=== PATIENT | female | born 1940 | race Caucasian/White ===

== ENCOUNTER 2020-09-16 10:02 | Inpatient (IN) ==
[2020-09-16 11:30] LABS: Basophils # (auto) 0.01 K/uL (0-0.2); Basophils % (auto) 0.1 %; Eosinophils # (auto) 0.22 K/uL (0-0.5); Eosinophils % (auto) 1.5 %; Hematocrit (blood only) 42.8 % (37-47); Hemoglobin 14.4 g/dL (12.0-16.0); Immature Granulocytes # (auto) 0.04 K/uL (0.00-0.02); Immature Granulocytes % (auto) 0.3 %; Lymphocytes # (auto) 1.61 K/uL (1.2-3.4); Lymphocytes % (auto) 10.9 %; Mean Corpuscular Hemoglobin 30.8 pg (25-34); Mean Corpuscular Hgb Conc 33.6 g/dL (32-36); Mean Corpuscular Volume 91.6 fL (80-100); Mean Platelet Volume 11.7 fL (7.4-10.4); Monocytes # (auto) 0.74 K/uL (0.11-0.59); Neutrophils # (auto) 12.11 K/uL (1.4-6.5); Neutrophils % (auto) 82.2 %; Platelet Count 261 K/uL (130-400); RDW Standard Deviation 46.9 fL (36.4-46.3); Red Blood Count 4.67 M/uL (4.2-5.4); White Blood Count 14.73 K/uL (4.8-10.8)
[2020-09-16 11:37] LABS: Appearance Urine Clear (Clear); Bilirubin Urine Negative (Negative); Blood Urine 1+ (Negative); Color Urine Yellow; Glucose Urine UA 2+ (Negative); Ketones Urine Negative (Negative); Leukocyte Esterase Urine Trace (Negative); Nitrite Urine Positive (Negative); Protein Urine Trace (Negative); Urobilinogen Urine Negative (Negative); pH Urine 5.5 (4.5-7.5)
[2020-09-16 11:48] LABS: Bacteria Urine 2+ (Negative); RBC Urine 0-4 /hpf (0-4)
[2020-09-16 12:29] LABS: Alanine Aminotransferase 113 U/L (12-78); Albumin Globulin Ratio 0.8 (0.9-2); Albumin Level 3.2 gm/dl (3.4-5.0); Alkaline Phosphatase 192 U/L (45-117); Aspartate Aminotransferase 13 U/L (15-37); BUN Creatinine Ratio 22.1 (10-20); Bilirubin,Total 1.2 mg/dl (0.2-1); Blood Urea Nitrogen 54 mg/dl (7-18); Carbon Dioxide 26 mmol/L (21-32); Chloride 94 mmol/L (98-107); Est GFR (African American) 20.8; Est GFR (Non-African American) 17.9; Globulin 3.8 gm/dl (2.5-4.0); Magnesium 2.3 mg/dl (1.8-2.4); Potassium 4.5 mmol/L (3.5-5.1); Sodium 128 mmol/L (136-145); Troponin I < 0.015 ng/ml (0-0.045)
[2020-09-16 12:31] LABS: Glucose 772 mg/dl (70-99)
[2020-09-16 12:45] LABS: Beta-Hydroxybutyrate 3.41 mg/dl (0.2-2.81)
[2020-09-16] MEDS ORDERED: SODIUM CHLORIDE 0.9% 1000ML 500 ML IV ONE (12:45)
[2020-09-16] MEDS ORDERED: SODIUM CHLORIDE 0.9% 1000ML 1,000 ML IV STA (12:45)
[2020-09-16] MEDS ORDERED: cefTRIAXone SODIUM 2,000 MG/70 ML BAG IV STA (12:45)
[2020-09-16] MEDS ORDERED: NovoLIN-R INSULIN PER UNIT CHARGE IV STA (12:45)
[2020-09-16] MEDS ORDERED: HHS GOAL RANGE 250-350 mg/dl ONE (13:56)
[2020-09-16] MEDS ORDERED: PHARMACY GLYCEMIC MGMT CONSULT STA (13:56)
[2020-09-16] MEDS ORDERED: INSULIN REGULAR 250 UNITS in SODIUM CHLORIDE 0.9% 247.5 ML IV SCH (14:00)
--- NOTE | 2020-09-16 14:05 | History & Physical Report ---
Date of Service September 16, 2020 Assessment & Plan (1) Hyperosmolar hyperglycemic state (HHS): Patient presents with glucose of 772. She has acute kidney injury and perhaps urinary tract infection present on admission. Patient was volume resuscitated in ER with crystalloid solution still received possibly 1500 mL he continues on Normosol and insulin drip was begun she did receive 10 units of regular insulin intravenously in the emergency department. She does have mild elevation of her beta hydroxybutyric acid but possibly could make this be considered more DKA however this is very mild. She also does not have an anion gap acidosis present on her electrolytes. Other than thirst and frequent urination the patient has no other complaints or problems at this time and she only came in at the recommendation of her primary care provider which is [place]. 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 The chlorthalidone and losartan will be held if additional blood pressure control is needed will use hydralazine (5) Hypothyroidism: Patient is maintained on Synthroid 137 grams daily, TSH was checked on intake and was normal (6) GERD (gastroesophageal reflux disease): Patient is maintained on omeprazole 20 (7) COPD (chronic obstructive pulmonary disease): Patient is stable taking Advair is to be continued she has no history of smoke exposure but was diagnosed by her PCP (8) Osteoarthritis: This once daily tramadol for osteoarthritic knee pain (9) DVT prophylaxis: Heparin 5000 subcu every 12 use History of Present Illness Primary Care Provider: NO PCP Reportedly the patient was sent to our emergency department due to outpatient laboratory showing abnormal kidney function. Patient is a known diabetic and also takes both diuretics and ARB medications. In the emergency department she was found to have a BUN/creatinine of 54 and 2.4 respectively with a glucose of 772. She likewise has a leukocytosis and a nitrate positive leukocyte esterase trace positive urine analysis with concern for urinary tract infection present on admission and likely HHS/DKA as she does have trace elevation of beta hydroxybutyric acid. Symptoms the patient is known as an outpatient have been fatigue and decreased appetite over the last 2 weeks. Of note the patient has received 2 code vaccines Allergies Allergy/AdvReac Type Severity Reaction Status Date / Time ibuprofen AdvReac Unknown Unverified 09/16/20 10:46 Home Medications Medication Instructions Recorded Confirmed Type amlodipine 10 mg PO DAILY 09/16/20 09/16/20 History aspirin 81 mg PO DAILY 09/16/20 09/16/20 History atenolol 100 mg PO DAILY 09/16/20 09/16/20 History atorvastatin 40 mg PO PM 09/16/20 09/16/20 History chlorthalidone 25 mg PO DAILY 09/16/20 09/16/20 History fluticasone propion-salmeterol 1 inh INHALATION BID 09/16/20 09/16/20 History glimepiride 1 mg PO DAILY 09/16/20 09/16/20 History levothyroxine 137 mcg PO DAILY 09/16/20 09/16/20 History losartan 100 mg PO DAILY 09/16/20 09/16/20 History omeprazole 20 mg PO DAILY 09/16/20 09/16/20 History tramadol 50 mg PO BID 09/16/20 09/16/20 History Past Med/Surg History Medical History (Updated 09/16/20 @ 14:21 by Nikhil Mckeon MD) Hypothyroidism Family History (Updated 09/16/20 @ 14:20 by Nikhil Mckeon MD) Brother Cancer Other Diabetes Social History Smoking Status: Never smoker Feels Safe at Home: Yes Review of Systems Review of Systems: Mild distress and fatigue has lost appetite for last 2 weeks. no headache, blurry or double vision no speech or swallowing issues no chest pain, pressure or palpitations no shortness of breath, cough or wheezes no abdominal pain, nausea or vomiting, diarrhea or constipation no dysuria, hematuria has been having urinary frequency Daily bilateral knee pain chronic lower extremity swelling no back pain, CVA tenderness or radicular pain no bruising, bleeding or rashes no focal signs of weakness or numbness or altered sensation no complaints of anxiety or depression.. Physical Exam Physical Exam: The patient appeared well nourished and normally developed. Vital signs as documented. Head exam is normocephalic atraumatic no scleral icterus Neck is without JVD, thyromegaly, or carotid bruits. Lungs are clear to auscultation, no focal loss of breath sounds Cardiac exam, Rhythm is regular.. No murmurs, rubs or gallops. Abdominal exam reveals normal bowel sounds, soft non tender, no masses Extremities are 1+ edema bilaterally which she says is chronic for her Neurologic exam is alert and oriented, no focal loss of strength or sensation Skin is without bruises or rashes soft fleshy growth on her right cheek she says is chronic Psychologically is without concerns for anxiety or depression Results & Data Results & Data ([facility]) Vital Signs (Past 12 Hours) Vital Signs Temp Pulse Pulse Resp BP BP Pulse Ox 09/16/20 13:00 64 19 148/60 H 97 09/16/20 12:37 65 22 144/62 H 97 09/16/20 12:30 72 21 144/62 H 97 09/16/20 12:07 67 17 97 09/16/20 10:58 63 16 119/63 96 09/16/20 10:13 97.9 F 67 16 137/58 L 97 PG Care Time/CCT Total # of Minutes Spent Total Time Spent with Patient: Total time spent is greater than 50% in coordination of care (as documented) at patient's floor/unit and/or counseling patient: Coding Level of Care Code 35608 Initial Inpt Care Lvl 3 Diagnoses Hyperosmolar hyperglycemic state (HHS) E11.00; E11.65 Diabetes E11.9 Chronic kidney disease stage: unspecified stage Diabetes mellitus complication status: with kidney complications Diabetes mellitus intermediate insulin use: without indirect sales exec use Diabetes mellitus type: type 2 UTI (urinary tract infection) N30.00 Hematuria presence: without hematuria Urinary tract infection type: acute cystitis Hypertension I10 Hypertension type: unspecified Hypothyroidism E03.9 GERD (gastroesophageal reflux disease) K21.9 COPD (chronic obstructive pulmonary disease) J44.9 Osteoarthritis M19.90 DVT prophylaxis Z29.9 (1) UTI (urinary tract infection) Hematuria presence: without hematuria Urinary tract infection type: acute cystitis Qualified Code(s): N30.00 - Acute cystitis without hematuria (2) Diabetes Chronic kidney disease stage: unspecified stage Diabetes mellitus com plication status: with kidney complications Diabetes mellitus indirect sales exec insulin use: without intermediate use Diabetes mellitus type: type 2 (3) Hypertension Hypertension type: unspecified Qualified Code(s): I10 - Essential (primary) hypertension
[2020-09-16] MEDS ORDERED: PHARMACY GLYCEMIC MGMT CONSULT PRN (14:06)
--- NOTE | 2020-09-16 14:11 | CT Scan Report ---
ABDOMEN AND PELVIS CT WITHOUT CONTRAST CT DOSE: 1172.33 mGy.cm HISTORY: Acute urinary tract infection with acute kidney injury elevated lfts, UTI, ZUHAIR TECHNIQUE: Multiaxial CT images of the abdomen and pelvis were performed without contrast. A dose lo wering technique was utilized adhering to the principles of ALARA. COMPARISON STUDY: None. FINDINGS: 4 mm solid nodule of the basal right lower lobe, image 21. No pneumatosis or pneumoperitone um. Coronary artery calcifications. The unenhanced spleen, pancreas, adrenal glands and unenhanced li bianca appear unremarkable. Layering stones within the gallbladder lumen. Hyperdense foci within the com mon bile duct measuring up to 6 mm suggestive of choledocholithiasis, image 134. The common bile duct measures up to 10 mm transversely. Cortical thinning of the bilateral kidneys. There are a few hyperdense lesions of the bilateral kidne ys measuring up to 7 mm on the left suggestive of proteinaceous or hemorrhagic cysts. There are a few simple cysts of the bilateral kidneys measuring up to 3.7 cm on the right. No renal or ureteral calc dav or hydronephrosis. Partially decompressed urinary bladder with mild wall thickening. Unremarkable uterus. Bilateral tubo-ovarian occlusion devices. No adnexal mass lesion. Calcified plaque of the do minant aorta without aneurysm. No adenopathy. I'll distal esophageal wall thickening with small hiatal hernia. No bowel obstruction. Colonic divert iculosis. There is mild focal wall thickening involving the hepatic flexure with trace pericolonic st randing as noted on image 162 series 3. The remainder of the colon appears normal. Normal appendix. N o ascites. Partially imaged 1.6 cm nodule of the lateral right breast on image 1. Degenerative change s of the spine, pelvis and hips. No acute fracture or suspicious bone lesion. IMPRESSION: 1. Cholelithiasis with hyperdense foci within the common bile duct suggestive of choledocholithiasis resulting in mild extrahepatic biliary ductal dilation. 2. Focal wall thickening with minimal pericolonic stranding involves the hepatic flexure. This may be secondary to a mild acute diverticulitis, however should be correlated with colonoscopy to exclude a n underlying lesion. 3. No bowel obstruction or pneumoperitoneum. 4. 1.6 cm partially imaged nodule of the lateral right breast is suspicious for a mass. Nonemergent m ammographic workup is needed. 5. No urolith or obstructive uropathy. 6. Additional findings as above. ACT 112: Negative or not required by law. The above report was generated using voice recognition software. It may contain grammatical, syntax o r spelling errors. Electronically signed by: Marcos Menjivar M.D. 09/16/2020 2:09 PM
[2020-09-16] MEDS ORDERED: PATIENT'S HEIGHT AND/OR WEIGHT NEEDED SCH (14:15)
[2020-09-16 14:16] LABS: Influenza A virus by PCR Negative (Neg); Influenza B virus by PCR Negative (Neg); RSV by PCR Negative (Neg); SARS CoV2 RNA(COVID-19) InHosp NEGATIVE (Negative)
--- NOTE | 2020-09-16 14:38 | Electrocardiogram Report ---
Test Reason : Blood Pressure : / mmHG Vent. Rate : 067 BPM Atrial Rate : 067 BPM P-R Int : 174 ms QRS Dur : 088 ms QT Int : 434 ms P-R-T Axes : 073 025 047 degrees QTc Int : 458 ms Normal sinus rhythm Normal ECG No previous ECGs available Confirmed by Manuel Díaz ([id number]) on 09/16/2020 2:38:17 PM Referred By: REFERRED SELF Confirmed By:Reuben Díaz
[2020-09-16] MEDS: NORMOSOL-R 1,000 ML IV SCH (15:20)
--- NOTE | 2020-09-16 16:16 | Emergency Department Note ---
Impression & Plan Acute renal failure, Hyperglycemia, Acute UTI (urinary tract infection), Elevated LFTs, Choledocholithiasis ED Provider Note INFORMANT: Patient ED PROVIDER(S): Rafat Reece MD CHIEF COMPLAINT: Abnormal labs PLAN: Disposition: Admitted Condition: Good Outpatient prescription management: none Referral: None none MEDICAL DECISION MAKING: Patient presented to the emergency department complaining of an abnormal lab test stating that her renal function was off. On review of systems she had no complaints. On second review of system she then admitted to some urinary frequency. Her laboratory testing revealed elevated LFTs, significant hyperglycemia, white blood cell count elevation, and signs of UTI. On reassessment she was doing well and again had no other complaints. Protocol Covid testing was performed. The patient was given IV fluids, IV insulin, and IV Rocephin. [facility] Dr. Mckeon. CT imaging was ordered to evaluate for the acute renal failure. Patient was evaluated in ER and admitted. CT imaging did reveal findings concerning for biliary pathology. Triage Nursing notes reviewed and agree them. Prior medical records reviewed. Outpatient lab revealed leukocytosis. Vital Signs: reviewed and remarkable for no significant abnormalities Differential diagnosis: Infection, dehydration, metabolic abnormality, hypo/hyperglycemia, electrolyte disturbance, anemia, hypoxia, cardiac sources, intracerebral event, toxicologic, neurologic, as well as other pathologies. Diagnostics interpreted by me: ECG: Rate: 67 Rhythm:Normal sinus [place]:Normal QRS:Normal ST segements:No elevation or depression Other:No PACs or PVCs Cardiac Monitoring: Cardiac monitoring ordered by me: The patient was placed on continuous cardiac monitoring and observed. It revealed a normal sinus rhythm at 61 beats per minute without ectopy or evidence of dysrhythmia. Imaging studies: CT imaging of the abdomen pelvis: 1. Cholelithiasis with hyperdense foci within the common bile duct suggestive of choledocholithiasis resulting in mild extrahepatic biliary ductal dilation. 2. Focal wall thickening with minimal pericolonic stranding involves the hepatic flexure. This may be secondary to a mild acute diverticulitis, however should be correlated with colonoscopy to exclude an underlying lesion. 3. No bowel obstruction or pneumoperitoneum. 4. 1.6 cm partially imaged nodule of the lateral right breast is suspicious for a mass. Nonemergent mammographic workup is needed. 5. No urolith or obstructive uropathy. 6. Additional findings as above. Consultation(s): [facility] service HPI: The patient is a 80year old female who presents to the Emergency Room with complaints of abnormal labs. This started today and is from her primary care physician. The patient also notes the following associated symptoms, urinary frequency. The patient has taken no medication for relieving factors. Current pain is rated as 0/10. No Covid exposure or sick contacts. Pt denies LOC, h eadache, fevers, chills, diaphoresis, visual changes, neck pain, chest pain, breathing difficulties, nausea, vomiting, abdominal pain, back pain, melena, hematochezia, numbness, weakness, lymphadenopathy, rash, or other complaints. ROS: See above HPI for pertinent positives & negatives. A total of 10 systems reviewed and were otherwise negative. PAST MEDICAL HISTORY:See Below , diabetes PAST SURGICAL HISTORY:See Below, FAMILY HISTORY:See Below SOCIAL HISTORY:See Below, retired HOME MEDICATIONS:See Below ALLERGIES:See Below VITALS:See Below PHYSICAL EXAMINATION: GENERAL: Awake, alert, well-appearing, in no distress HENT: Normocephalic, atraumatic. Oropharynx unremarkable. EYES: Normal conjunctiva. Sclera non-icteric. NECK: Inspection normal. Non-tender. Supple. No nuchal rigidity. FROM. No masses. RESPIRATORY: Clear to auscultation. No wheezes. No rales. Normal respiratory effort. CARDIAC: Normal rate. Normal rhythm. No murmurs. No rubs. Extremities warm and well perfused. Pulses equal. No JVD. GI: Soft, non-distended. No tenderness to palpation. No rebound or guarding. No masses. RECTAL: Deferred. MUSCULOSKELETAL: Atraumatic. Chest examination reveals no tenderness. The back is symmetrical on inspection without obvious abnormality. There is no CVA tenderness to palpation. No joint edema. LOWER EXTREMITIES: Calves are equal size bilaterally and non-tender. 1+ edema. No discoloration. NEURO: Normal sensorium. No sensory or motor deficits noted. SKIN: No rash or jaundice noted.josé miguel Reece MD Past Med/Surg History Medical History (Updated 09/16/20 @ 16:19 by Rafat Reece MD) Hypothyroidism Family History (Updated 09/16/20 @ 14:20 by Nikhil Mckeon MD) Brother Cancer Other Diabetes Social History Smoking Status: Never smoker Feels Safe at Home: Yes Allergies Allergies Allergy/AdvReac Type Severity Reaction Status Date / Time ibuprofen AdvReac Unknown Unverified 09/16/20 10:46 Home Meds Home Medications Medication Instructions Recorded Confirmed amlodipine 10 mg PO DAILY 09/16/20 09/16/20 aspirin 81 mg PO DAILY 09/16/20 09/16/20 atenolol 100 mg PO DAILY 09/16/20 09/16/20 atorvastatin 40 mg PO PM 09/16/20 09/16/20 chlorthalidone 25 mg PO DAILY 09/16/20 09/16/20 fluticasone propion-salmeterol 1 inh INHALATION BID 09/16/20 09/16/20 glimepiride 1 mg PO DAILY 09/16/20 09/16/20 levothyroxine 137 mcg PO DAILY 09/16/20 09/16/20 losartan 100 mg PO DAILY 09/16/20 09/16/20 omeprazole 20 mg PO DAILY 09/16/20 09/16/20 tramadol 50 mg PO BID 09/16/20 09/16/20 Results & Data (ED) Vital Signs Vital Signs - 24 hr 09/16/20 10:13 09/16/20 10:58 09/16/20 12:07 Temperature 36.6 C Temperature Source Oral Pulse Rate 67 67 Pulse Rate [Bilateral Radial] 63 Pulse Rate from SpO2 Sensor 67 Pulse Rhythm Regular Pulse Rhythm [Bilateral Radial] Regular Pulse Strength [Bilateral Radial] Normal Respiratory Rate 16 16 17 Respiratory Effort / Characteristics Non-Labored Respiratory Depth Normal Respiratory Pattern Regular Blood Pressure 137/58 L Blood Pressure [Right Arm] 119/63 Blood Pressure Mean 84 Blood Pressure Mean [Right Arm] 81 Blood Pressure Position [Right Arm] Sitting Pulse Oximetry 97 96 97 Oxygen Delivery Method Room Air Room Air Sepsis Recent Fever Within 48 Hours No Sepsis New/Unexplained Change in Mental Status N/A Sepsis Action Taken by Nursing No Action Required 09/16/20 12:30 09/16/20 12:37 09/16/20 13:00 Temperature Temperature Source Pulse Rate 72 65 64 Pulse Rate [Bilateral Radial] Pulse Rate from SpO2 Sensor 63 65 64 Pulse Rhythm Pulse Rhythm [Bilateral Radial] Pulse Strength [Bilateral Radial] Respiratory Rate 21 22 19 Respiratory Effort / Characteristics Respiratory Depth Respiratory Pattern Blood Pressure 144/62 H 144/62 H 148/60 H Blood Pressure [Right Arm] Blood Pressure Mean 89 89 89 Blood Pressure Mean [Right Arm] Blood Pressure Position [Right Arm] Pulse Oximetry 97 97 97 Oxygen Delivery Method Sepsis Recent Fever Within 48 Hours Sepsis New/Unexplained Change in Mental Status Sepsis Action Taken by Nursing 09/16/20 13:59 09/16/20 14:00 09/16/20 14:52 Temperature Temperature Source Pulse Rate 70 70 67 Pulse Rate [Bilateral Radial] Pulse Rate from SpO2 Sensor 70 70 67 Pulse Rhythm Pulse Rhythm [Bilateral Radial] Pulse Strength [Bilateral Radial] Respiratory Rate 24 Respiratory Effort / Characteristics Respiratory Depth Respiratory Pattern Blood Pressure 137/60 Blood Pressure [Right Arm] Blood Pressure Mean 85 Blood Pressure Mean [Right Arm] Blood Pressure Position [Right Arm] Pulse Oximetry 98 98 97 Oxygen Delivery Method Sepsis Recent Fever Within 48 Hours Sepsis New/Unexplained Change in Mental Status Sepsis Action Taken by Nursing 09/16/20 15:00 Temperature Temperature Source Pulse Rate 61 Pulse Rate [Bilateral Radial] Pulse Rate from SpO2 Sensor 61 Pulse Rhythm Pulse Rhythm [Bilateral Radial] Pulse Strength [Bilateral Radial] Respiratory Rate 19 Respiratory Effort / Characteristics Respiratory Depth Respiratory Pattern Blood Pressure 128/71 Blood Pressure [Right Arm] Blood Pressure Mean 90 Blood Pressure Mean [Right Arm] Blood Pressure Position [Right Arm] Pulse Oximetry 97 Oxygen Delivery Method Sepsis Recent Fever Within 48 Hours Sepsis New/Unexplained Change in Mental Status Sepsis Action Taken by Nursing Laboratory Data Result diagrams: 09/16/20 11:14 09/16/20 11:17 Lab Results 09/16/20 09/16/20 09/16/20 Range/Units 11:14 11:17 11:17 WBC 14.73 H (4.8-10.8) K/uL RBC 4.67 (4.2-5.4) M/uL Hgb 14.4 (12.0-16.0) g/dL Hct 42.8 (37-47) % MCV 91.6 (80-100) fL MCH 30.8 (25-34) pg MCHC 33.6 (32-36) g/dL RDW Std Deviation 46.9 H (36.4-46.3) fL RDW Coeff of Roberto 14.0 (11.5-14.5) % Plt Count 261 (130-400) K/uL MPV 11.7 H (7.4-10.4) fL Immature Gran % (Auto) 0.3 % Neut % (Auto) 82.2 % Lymph % (Auto) 10.9 % [place] % (Auto) 5.0 % Eos % (Auto) 1.5 % Baso % (Auto) 0.1 % Neut # (Auto) 12.11 H (1.4-6.5) K/uL Lymph # (Auto) 1.61 (1.2-3.4) K/uL [place] # (Auto) 0.74 H (0.11-0.59) K/uL Eos # (Auto) 0.22 (0-0.5) K/uL Baso # (Auto) 0.01 (0-0.2) K/uL Immature Gran # (Auto) 0.04 H (0.00-0.02) K/uL Sodium 128 L (136-145) mmol/L Potassium 4.5 (3.5-5.1) mmol/L Chloride 94 L (98-107) mmol/L Carbon Dioxide 26 (21-32) mmol/L Anion Gap 8.0 (3-11) BUN 54 H (7-18) mg/dl Creatinine 2.46 H (0.6-1.2) mg/dl Est Cr Clr Drug Dosing Not Reportable Est GFR ( Amer) 20.8 Est GFR (Non-Af Amer) 17.9 BUN/Creatinine Ratio 22.1 H (10-20) Glucose 772 H* (70-99) mg/dl POC Glucose (70-99) mg/dl Calcium 9.0 (8.5-10.1) mg/dl Magnesium 2.3 (1.8-2.4) mg/dl Total Bilirubin 1.2 H (0.2-1) mg/dl AST 13 L (15-37) U/L ALT 113 H (12-78) U/L Alkaline Phosphatase 192 H (45-117) U/L Troponin I < 0.015 (0-0.045) ng/ml Total Protein 7.0 (6.4-8.2) gm/dl Albumin 3.2 L (3.4-5.0) gm/dl Globulin 3.8 (2.5-4.0) gm/dl Albumin/Globulin Ratio 0.8 L (0.9-2) Beta-Hydroxybutyric Acd 3.41 H (0.2-2.81) mg/dl TSH 3.190 (0.300-4.500) uIu/ml Urine Color Yellow Urine Appearance Clear (Clear) Urine pH 5.5 (4.5-7.5) Ur Specific [place] 1.010 (1.000-1.030) Urine Protein Trace H (Negative) Urine Glucose (UA) 2+ H (Negative) Urine Ketones Negative (Negative) Urine Blood 1+ H (Negative) Urine Nitrite Positive A (Negative) Urine Bilirubin Negative (Negative) Urine Urobilinogen Negative (Negative) Ur Leukocyte Esterase Trace H (Negative) Urine RBC 0-4 (0-4) /hpf Urine WBC 10-30 H (0-5) /hpf Ur Epithelial Cells 5-10 H (0-5) /lpf Urine Bacteria 2+ H (Negative) COVID-19 Eval Order SARS-CoV-2 (PCR) (Negative) Influenza Type A (PCR) (Neg) Influenza Type B (PCR) (Neg) RSV (RT-PCR) (Neg) 09/16/20 09/16/20 09/16/20 Range/Units 13:15 13:15 14:59 WBC (4.8-10.8) K/uL RBC (4.2-5.4) M/uL Hgb (12.0-16.0) g/dL Hct (37-47) % MCV (80-100) fL MCH (25-34) pg MCHC (32-36) g/dL RDW Std Deviation (36.4-46.3) fL RDW Coeff of Roberto (11.5-14.5) % Plt Count (130-400) K/uL MPV (7.4-10.4) fL Immature Gran % (Auto) % Neut % (Auto) % Lymph % (Auto) % [place] % (Auto) % Eos % (Auto) % Baso % (Auto) % Neut # (Auto) (1.4-6.5) K/uL Lymph # (Auto) (1.2-3.4) K/uL [place] # (Auto) (0.11-0.59) K/uL Eos # (Auto) (0-0.5) K/uL Baso # (Auto) (0-0.2) K/uL Immature Gran # (Auto) (0.00-0.02) K/uL Sodium (136-145) mmol/L Potassium (3.5-5.1) mmol/L Chloride (98-107) mmol/L Carbon Dioxide (21-32) mmol/L Anion Gap (3-11) BUN (7-18) mg/dl Creatinine (0.6-1.2) mg/dl Est Cr Clr Drug Dosing Est GFR ( Amer) Est GFR (Non-Af Amer) BUN/Creatinine Ratio (10-20) Glucose (70-99) mg/dl POC Glucose 495 H* (70-99) mg/dl Calcium (8.5-10.1) mg/dl Magnesium (1.8-2.4) mg/dl Total Bilirubin (0.2-1) mg/dl AST (15-37) U/L ALT (12-78) U/L Alkaline Phosphatase (45-117) U/L Troponin I (0-0.045) ng/ml Total Protein (6.4-8.2) gm/dl Albumin (3.4-5.0) gm/dl Globulin (2.5-4.0) gm/dl Albumin/Globulin Ratio (0.9-2) Beta-Hydroxybutyric Acd (0.2-2.81) mg/dl TSH (0.300-4.500) uIu/ml Urine Color Urine Appearance (Clear) Urine pH (4.5-7.5) Ur Specific [place] (1.000-1.030) Urine Protein (Negative) Urine Glucose (UA) (Negative) Urine Ketones (Negative) Urine Blood (Negative) Urine Nitrite (Negative) Urine Bilirubin (Negative) Urine Urobilinogen (Negative) Ur Leukocyte Esterase (Negative) Urine RBC (0-4) /hpf Urine WBC (0-5) /hpf Ur Epithelial Cells (0-5) /lpf Urine Bacteria (Negative) COVID-19 Eval Order CovFluRsv at [facility] SARS-CoV-2 (PCR) NEGATIVE (Negative) Influenza Type A (PCR) Negative (Neg) Influenza Type B (PCR) Negative (Neg) RSV (RT-PCR) Negative (Neg) Administered Medications Insulin Human Regular 250 (units/ Sodium Chloride) 250 mls @ 9.9 mls/hr IV .Q24H FRANTZ; Protocol Stop: 10/16/20 13:59 Last Admin: 09/16/20 15:22 Dose: 9.9 units/hr, 9.9 mls/hr Documented by: [id number] Cosigned by: [id number] Parenteral Electrolytes (Normosol-R) 1,000 mls @ 100 mls/hr IV .Q10H FRANTZ Stop: 10/16/20 13:59 Last Admin: 09/16/20 15:20 Dose: 100 mls/hr Documented by: [id number] Discontinued Medications Sodium Chloride (Nss 1000ml) 500 mls @ 999 mls/hr IV .Q31M ONE Stop: 09/16/20 13:15 Last Infusion: 09/16/20 14:07 Dose: 0 mls/hr Documented by: [id number] Admin: 09/16/20 13:35 Dose: 999 mls/hr Documented by: [id number] Sodium Chloride (Nss 1000ml) 1,000 mls @ 125 mls/hr IV .Q8H STA Stop: 09/16/20 20:44 Last Admin: 09/16/20 13:37 Dose: 125 mls/hr Documented by: [id number] Ceftriaxone Sodium (Rocephin) 2,000 mg in 70 mls @ 140 mls/hr IV NOW STA Stop: 09/16/20 13:14 Last Infusion: 09/16/20 14:13 Dose: 0 mls/hr Documented by: [id number] Admin: 09/16/20 13:38 Dose: 140 mls/hr Documented by: [id number] Insulin Human Regular (Novolin-R Insulin Per Unit Charge) 10 units IV NOW STA Stop: 09/16/20 12:46 Last Admin: 09/16/20 13:36 Dose: 10 units Documented by: [id number] Cosigned by: [id number] Discharge Plan Visit Data Chief Complaint: Abnormal Labs/Diagnostic Testing Stated Complaint: ABNORMAL KIDNEY FUNCTION LEVEL ED Provider: Rafat Reece Discharge Problem: Acute renal failure, Hyperglycemia, Acute UTI (urinary tract infection), Elevated LFTs, Choledocholithiasis Forms Stand Alone Forms: [facility] Prescriptions Prescriptions: No Action levothyroxine 137 mcg Tablet 137 mcg PO DAILY RF: 0 atenolol 100 mg Tablet 100 mg PO DAILY RF: 0 tramadol 50 mg Tablet 50 mg PO BID RF: 0 glimepiride 1 mg Tablet 1 mg PO DAILY RF: 0 amlodipine 10 mg Tablet 10 mg PO DAILY RF: 0 omeprazole 20 mg Capsule,Delayed Release(Dr/Ec) 20 mg PO DAILY RF: 0 losartan 100 mg Tablet 100 mg PO DAILY RF: 0 atorvastatin 40 mg Tablet 40 mg PO PM RF: 0 fluticasone propion-salmeterol 250-50 mcg/dose Blister With Device 1 inh INHALATION BID RF: 0 chlorthalidone 25 mg Tablet 25 mg PO DAILY RF: 0 aspirin 81 mg Tablet 81 mg PO DAILY RF: 0
[2020-09-16] MEDS ORDERED: GLUCOSE 10 TABS/TUBE PO PRN (19:39)
[2020-09-16] MEDS ORDERED: DEXTROSE 50% 50 ML SYRINGE IV PRN (19:39)
[2020-09-16] MEDS ORDERED: GLUCOSE 40% GEL 15 GM TUBE PO PRN (19:39)
[2020-09-16] MEDS ORDERED: CARBOHYDRATES FOR HYPOGLYCEMIA PO PRN (19:39)
[2020-09-16] MEDS ORDERED: GLUCAGON FOR INJ 1 MG VIAL SQ PRN (19:39)
[2020-09-16] MEDS ORDERED: POLYETHYLENE (MIRALAX) 17 GM PACK PO PRN (20:30)
[2020-09-16] MEDS ORDERED: ONDANSETRON INJ 2 MG/ML 2 ML VIAL IV PRN (20:30)
[2020-09-16] MEDS ORDERED: ACETAMINOPHEN 325 MG TAB PO PRN (20:30)
[2020-09-16] MEDS ORDERED: PIPERACILL/TAZOBAC CONSULT ACTIVE PRN (20:30)
[2020-09-16] MEDS ORDERED: ALUMINUM/MAGNESIUM SUSP 30 ML UDC PO PRN (20:30)
[2020-09-16] MEDS ORDERED: PIPERACILLIN/TAZOBACTAM 4.5 GM in DEXTROSE 5% 100 ML IV ONE (21:00)
[2020-09-16 21:34] LABS: BUN Creatinine Ratio 27.6 (10-20); Calcium 8.9 mg/dl (8.5-10.1); Creatinine Clr Calc Pharmacy 29.1 ml/min; Est GFR (African American) 31.1; Est GFR (Non-African American) 26.8; Magnesium 2.1 mg/dl (1.8-2.4); Phosphorus 2.4 mg/dl (2.5-4.9); Potassium 3.8 mmol/L (3.5-5.1)
[2020-09-16] MEDS ORDERED: INSULIN GLARGINE SOLOSTAR 100 UNITS/ML 3 ML PEN SC ONE (22:00)
[2020-09-16] MEDS: ATORVASTATIN 40 MG TAB PO SCH (22:20)
[2020-09-17 01:31] LABS: BUN Creatinine Ratio 24.3 (10-20); Calcium 9.1 mg/dl (8.5-10.1); Est GFR (African American) 29.7; Est GFR (Non-African American) 25.6; Magnesium 2.1 mg/dl (1.8-2.4); Potassium 3.6 mmol/L (3.5-5.1)
[2020-09-17] MEDS: NORMOSOL-R 1,000 ML IV SCH ×2 (02:54→12:02)
[2020-09-17] MEDS: PIPERACILLIN/TAZOBACTAM 4.5 GM in DEXTROSE 5% 100 ML IV SCH ×3 (03:53→20:14)
[2020-09-17 04:11] LABS: Hematocrit (blood only) 39.4 % (37-47); Hemoglobin 13.3 g/dL (12.0-16.0); Mean Corpuscular Hgb Conc 33.8 g/dL (32-36); Mean Corpuscular Volume 88.9 fL (80-100); Mean Platelet Volume 10.9 fL (7.4-10.4); Platelet Count 234 K/uL (130-400); RDW Coefficient of Variation 13.6 % (11.5-14.5); RDW Standard Deviation 44.6 fL (36.4-46.3); Red Blood Count 4.43 M/uL (4.2-5.4); White Blood Count 12.88 K/uL (4.8-10.8)
[2020-09-17 04:31] LABS: Albumin Level 2.5 gm/dl (3.4-5.0); BUN Creatinine Ratio 24.6 (10-20); Calcium 8.4 mg/dl (8.5-10.1); Creatinine Clr Calc Pharmacy 32.4 ml/min; Est GFR (African American) 33.6; Magnesium 2.2 mg/dl (1.8-2.4); Potassium 3.5 mmol/L (3.5-5.1)
[2020-09-17 04:36] LABS: Bilirubin Direct 0.4 mg/dl (0-0.2); Bilirubin,Total 0.7 mg/dl (0.2-1); Phosphorus 2.3 mg/dl (2.5-4.9); Total Protein 5.6 gm/dl (6.4-8.2)
[2020-09-17] MEDS: LEVOTHYROXINE SODIUM 137 MCG TABLET PO SCH (05:21)
[2020-09-17 06:26] LABS: Estimated Average Glucose 390 mg/dl; Hemoglobin A1C 15.2 % (4.5-5.6)
[2020-09-17] MEDS: INSULIN ASPART 100 UNITS/ML 3 ML PEN SC SCH ×6 (07:46→23:56)
--- NOTE | 2020-09-17 08:14 | Gastrointestinal Consultation ---
Date of Consultation September 17, 2020 Assessment & Plan (1) Choledocholithiasis: 80 y/o female with several co-morbidities including poorly controlled DM admitted yesterday with hyperglycemia, ZUHAIR, UTI symptoms, and GI consulted for imaging suggestive of choledocholithiasis, along with elevated LFTs. She's asymptomatic in that regard; feeling well this AM; no GI complaints; labs showing improvement; abd is soft and she's resting comfortably. - Keep NPO - INR added today - Plan for ERCP later today to evaluate for biliary stone suggested on imaging - Continue ABX per primary team - Analgesia, antiemetics PRN - IVF - Appreciate hospital team mgmt of co-morbidities including hyperglycemia, HTN - Trend daily LFTs, CBC - Would suggest outpt colonoscopy in several weeks to evaluate hepatic flexure colonic changes seen on CT Thank you for allowing us to participate in the care of this patient. Please call with any acute changes, questions or concerns. Please see addendum below with additional recommendation from my supervising physician. (2) Elevated LFTs: Supervising Physician Co-Signing Physician Notes I saw and evaluated the patient. The patient presents with complications related to choledocholithiasis. We are planning for ERCP today. We have discussed the risks and benefits to include bleeding, infection, perforation, pancreatitis and failed biliary cannulation. Physical exam No obvious distress Mild scleral icterus Mild right upper quadrant tenderness Impression: Patient with complications related to choledocholithiasis, will plan for ERCP today. Recommendations ERCP today General surgery consultation for cholecystectomy History of Present Illness Reason for Consultation: possible retained stone choledolcolitihasis Requesting Physician: Dr. Mckeon Attending Physician: Nikhil Mckeon MD History of Present Illness This is an 80 y/o female with PMhx DM, HTN, COPD, hypothyroidism, CKD and others who developed UTI symptoms and had outpt lab testing showing ZUHAIR, and was referred to the ER. On arrival had lab notable for glucose of 772, likely HHS/DKA, ZUHAIR, UA suggestive of UTI, along with elevated LFTs including ALP 192, ALT 113, tbili 1.2, mild leukocytosis and no anemia. A1C 15.2%. CTAP with hyperdense foci in the CBD suggestive of choledocholithiasis with extra hepatic ductal dilation, as well as laying stones in the GB, in addition to colonic wall thickening/pericolonic stranding at the hepatic flexure of unclear etiology. GI consulted for possible choledocholithiasis Pt was tx for her hyperglycemia and started on empiric ABX. Today feeling improved overall; less thirst, urinary issues. Today having some hypertension, slight temp of 36.3 C, however leukocytosis, glucose and ZUHAIR improved. Tbili normalized to 0.7 however ALP and ALP remain elevated. Denies ever really having any symptoms of biliary stone - no abd pain, n/v, jaundice, bloating, fever, chills, dark urine, selby stools, weight loss. Bowels move well, solid, brown; no hematochezia, hematemesis, melena. No ETOH, tobacco or NSAID use. Takes baby ASA daily. No history of prior upper abd or biliary surgery; no prior history of liver/CBD/pancreatic issues. Allergies Allergy/AdvReac Type Severity Reaction Status Date / Time ibuprofen AdvReac Unknown Unverified 09/16/20 10:46 Home Medications Medication Instructions Recorded Confirmed Type amlodipine 10 mg PO DAILY 09/16/20 09/16/20 History aspirin 81 mg PO DAILY 09/16/20 09/16/20 History atenolol 100 mg PO DAILY 09/16/20 09/16/20 History atorvastatin 40 mg PO PM 09/16/20 09/16/20 History chlorthalidone 25 mg PO DAILY 09/16/20 09/16/20 History fluticasone propion-salmeterol 1 inh INHALATION BID 09/16/20 09/16/20 History glimepiride 1 mg PO DAILY 09/16/20 09/16/20 History levothyroxine 137 mcg PO DAILY 09/16/20 09/16/20 History losartan 100 mg PO DAILY 09/16/20 09/16/20 History omeprazole 20 mg PO DAILY 09/16/20 09/16/20 History tramadol 50 mg PO BID 09/16/20 09/16/20 History Patient History Medical History (Updated 09/16/20 @ 16:19 by Rafat Reece MD) Hypothyroidism Family History (Updated 09/16/20 @ 14:20 by Nikhil Mckeon MD) Brother Cancer Other Diabetes Social History Smoking Status: Never smoker Hx Alcohol Use: No Hx Substance Use: No Preferred Language: Bulgarian Communication Ability: Effective Grocery Clerk Required: No Beliefs That Will Affect Care: None Current Living Situation: Alone Feels Safe at Home: Yes Assistive Devices: None Review of Systems Review of Systems: All systems reviewed & are unremarkable except as noted in HPI & below Physical Exam Constitutional: WD/WN, vitals as above Eyes: anicteric sclerae Respiratory: normal respiratory effort, lungs clear to auscultation Cardiovascular: Rate/Rhythm: regular rate and regular rhythm soft systolic murmur Gastrointestinal (Abdomen): normal bowel sounds, soft, nontender, no hepatosplenomegaly Skin: no rashes, warm and dry no jaundice Psychiatric: A+Ox3, euthymic affect Results & Data ([facility]) Vital Signs (Past 12 Hours) Vital Signs Temp Pulse Pulse Pulse Resp BP BP 09/17/20 07:48 36.3 C L 69 18 177/83 H 09/17/20 04:35 36.5 C 62 18 158/73 H 09/17/20 00:45 66 09/17/20 00:25 36.7 C 71 18 09/16/20 22:37 36.6 C 67 20 09/16/20 22:01 131/50 L 09/16/20 21:30 101 H 15 09/16/20 21:23 36.6 C 69 22 143/121 H 09/16/20 21:01 66 18 162/66 H 09/16/20 21:00 67 23 09/16/20 20:33 65 16 09/16/20 20:30 65 20 159/65 H BP Pulse Ox Pulse Ox 09/17/20 07:48 94 09/17/20 04:35 96 09/17/20 00:45 09/17/20 00:25 145/65 H 96 09/16/20 22:37 97 09/16/20 22:01 09/16/20 21:30 09/16/20 21:23 97 09/16/20 21:01 97 09/16/20 21:00 94 09/16/20 20:33 159/65 H 97 97 09/16/20 20:30 97 Laboratory Results 09/17/20 09/17/20 09/17/20 Range/Units 08:25 08:25 08:25 WBC (4.8-10.8) K/uL RBC (4.2-5.4) M/uL Hgb (12.0-16.0) g/dL Hct (37-47) % MCV (80-100) fL MCH (25-34) pg MCHC (32-36) g/dL RDW Std Deviation (36.4-46.3) fL RDW Coeff of Roberto (11.5-14.5) % Plt Count (130-400) K/uL MPV (7.4-10.4) fL Immature Gran % (Auto) % Neut % (Auto) % Lymph % (Auto) % [place] % (Auto) % Eos % (Auto) % Baso % (Auto) % Neut # (Auto) (1.4-6.5) K/uL Lymph # (Auto) (1.2-3.4) K/uL [place] # (Auto) (0.11-0.59) K/uL Eos # (Auto) (0-0.5) K/uL Baso # (Auto) (0-0.2) K/uL Immature Gran # (Auto) (0.00-0.02) K/uL PT 10.2 (9.0-12.0) Seconds INR 1.0 (0.9-1.1) VBG pH Pending (7.36-7.41) Sodium Pending (136-145) mmol/L Potassium Pending (3.5-5.1) mmol/L Chloride Pending (98-107) mmol/L Carbon Dioxide Pending (21-32) mmol/L Anion Gap Pending (3-11) BUN Pending (7-18) mg/dl Creatinine Pending (0.6-1.2) mg/dl Est Cr Clr Drug Dosing Pending Est GFR ( Amer) Pending Est GFR (Non-Af Amer) Pending BUN/Creatinine Ratio Pending (10-20) Glucose Pending (70-99) mg/dl POC Glucose (70-99) mg/dl Estimat Average Glucose mg/dl Hemoglobin A1c (4.5-5.6) % Calcium Pending (8.5-10.1) mg/dl Phosphorus Pending (2.5-4.9) mg/dl Magnesium Pending (1.8-2.4) mg/dl Total Bilirubin (0.2-1) mg/dl Direct Bilirubin (0-0.2) mg/dl AST (15-37) U/L ALT (12-78) U/L Alkaline Phosphatase (45-117) U/L Troponin I (0-0.045) ng/ml Total Protein (6.4-8.2) gm/dl Albumin (3.4-5.0) gm/dl Globulin (2.5-4.0) gm/dl Albumin/Globulin Ratio (0.9-2) Beta-Hydroxybutyric Acd (0.2-2.81) mg/dl TSH (0.300-4.500) uIu/ml Urine Color Urine Appearance (Clear) Urine pH (4.5-7.5) Ur Specific [place] (1.000-1.030) Urine Protein (Negative) Urine Glucose (UA) (Negative) Urine Ketones (Negative) Urine Blood (Negative) Urine Nitrite (Negative) Urine Bilirubin (Negative) Urine Urobilinogen (Negative) Ur Leukocyte Esterase (Negative) Urine RBC (0-4) /hpf Urine WBC (0-5) /hpf Ur Epithelial Cells (0-5) /lpf Urine Bacteria (Negative) COVID-19 Eval Order SARS-CoV-2 (PCR) (Negative) Influenza Type A (PCR) (Neg) Influenza Type B (PCR) (Neg) RSV (RT-PCR) (Neg) 09/17/20 09/17/20 09/17/20 Range/Units 07:47 06:06 05:13 WBC (4.8-10.8) K/uL RBC (4.2-5.4) M/uL Hgb (12.0-16.0) g/dL Hct (37-47) % MCV (80-100) fL MCH (25-34) pg MCHC (32-36) g/dL RDW Std Deviation (36.4-46.3) fL RDW Coeff of Roberto (11.5-14.5) % Plt Count (130-400) K/uL MPV (7.4-10.4) fL Immature Gran % (Auto) % Neut % (Auto) % Lymph % (Auto) % [place] % (Auto) % Eos % (Auto) % Baso % (Auto) % Neut # (Auto) (1.4-6.5) K/uL Lymph # (Auto) (1.2-3.4) K/uL [place] # (Auto) (0.11-0.59) K/uL Eos # (Auto) (0-0.5) K/uL Baso # (Auto) (0-0.2) K/uL Immature Gran # (Auto) (0.00-0.02) K/uL PT (9.0-12.0) Seconds INR (0.9-1.1) VBG pH (7.36-7.41) Sodium (136-145) mmol/L Potassium (3.5-5.1) mmol/L Chloride (98-107) mmol/L Carbon Dioxide (21-32) mmol/L Anion Gap (3-11) BUN (7-18) mg/dl Creatinine (0.6-1.2) mg/dl Est Cr Clr Drug Dosing Est GFR ( Amer) Est GFR (Non-Af Amer) BUN/Creatinine Ratio (10-20) Glucose (70-99) mg/dl POC Glucose 148 H 197 H 191 H (70-99) mg/dl Estimat Average Glucose mg/dl Hemoglobin A1c (4.5-5.6) % Calcium (8.5-10.1) mg/dl Phosphorus (2.5-4.9) mg/dl Magnesium (1.8-2.4) mg/dl Total Bilirubin (0.2-1) mg/dl Direct Bilirubin (0-0.2) mg/dl AST (15-37) U/L ALT (12-78) U/L Alkaline Phosphatase (45-117) U/L Troponin I (0-0.045) ng/ml Total Protein (6.4-8.2) gm/dl Albumin (3.4-5.0) gm/dl Globulin (2.5-4.0) gm/dl Albumin/Globulin Ratio (0.9-2) Beta-Hydroxybutyric Acd (0.2-2.81) mg/dl TSH (0.300-4.500) uIu/ml Urine Color Urine Appearance (Clear) Urine pH (4.5-7.5) Ur Specific [place] (1.000-1.030) Urine Protein (Negative) Urine Glucose (UA) (Negative) Urine Ketones (Negative) Urine Blood (Negative) Urine Nitrite (Negative) Urine Bilirubin (Negative) Urine Urobilinogen (Negative) Ur Leukocyte Esterase (Negative) Urine RBC (0-4) /hpf Urine WBC (0-5) /hpf Ur Epithelial Cells (0-5) /lpf Urine Bacteria (Negative) COVID-19 Eval Order SARS-CoV-2 (PCR) (Negative) Influenza Type A (PCR) (Neg) Influenza Type B (PCR) (Neg) RSV (RT-PCR) (Neg) 09/17/20 09/17/20 09/17/20 Range/Units 03:56 03:56 03:56 WBC 12.88 H (4.8-10.8) K/uL RBC 4.43 (4.2-5.4) M/uL Hgb 13.3 (12.0-16.0) g/dL Hct 39.4 (37-47) % MCV 88.9 (80-100) fL MCH 30.0 (25-34) pg MCHC 33.8 (32-36) g/dL RDW Std Deviation 44.6 (36.4-46.3) fL RDW Coeff of Roberto 13.6 (11.5-14.5) % Plt Count 234 (130-400) K/uL MPV 10.9 H (7.4-10.4) fL Immature Gran % (Auto) % Neut % (Auto) % Lymph % (Auto) % [place] % (Auto) % Eos % (Auto) % Baso % (Auto) % Neut # (Auto) (1.4-6.5) K/uL Lymph # (Auto) (1.2-3.4) K/uL [place] # (Auto) (0.11-0.59) K/uL Eos # (Auto) (0-0.5) K/uL Baso # (Auto) (0-0.2) K/uL Immature Gran # (Auto) (0.00-0.02) K/uL PT (9.0-12.0) Seconds INR (0.9-1.1) VBG pH 7.42 H (7.36-7.41) Sodium 139 (136-145) mmol/L Potassium 3.5 (3.5-5.1) mmol/L Chloride 104 (98-107) mmol/L Carbon Dioxide 28 (21-32) mmol/L Anion Gap 7.0 (3-11) BUN 41 H (7-18) mg/dl Creatinine 1.65 H (0.6-1.2) mg/dl Est Cr Clr Drug Dosing 32.4 Est GFR ( Amer) 33.6 Est GFR (Non-Af Amer) 29.0 BUN/Creatinine Ratio 24.6 H (10-20) Glucose 163 H (70-99) mg/dl POC Glucose (70-99) mg/dl Estimat Average Glucose mg/dl Hemoglobin A1c (4.5-5.6) % Calcium 8.4 L (8.5-10.1) mg/dl Phosphorus 2.3 L (2.5-4.9) mg/dl Magnesium 2.2 (1.8-2.4) mg/dl Total Bilirubin 0.7 D (0.2-1) mg/dl Direct Bilirubin 0.4 H (0-0.2) mg/dl AST 14 L (15-37) U/L ALT 79 H (12-78) U/L Alkaline Phosphatase 142 H (45-117) U/L Troponin I (0-0.045) ng/ml Total Protein 5.6 L (6.4-8.2) gm/dl Albumin 2.5 L (3.4-5.0) gm/dl Globulin (2.5-4.0) gm/dl Albumin/Globulin Ratio (0.9-2) Beta-Hydroxybutyric Acd (0.2-2.81) mg/dl TSH (0.300-4.500) uIu/ml Urine Color Urine Appearance (Clear) Urine pH (4.5-7.5) Ur Specific [place] (1.000-1.030) Urine Protein (Negative) Urine Glucose (UA) (Negative) Urine Ketones (Negative) Urine Blood (Negative) Urine Nitrite (Negative) Urine Bilirubin (Negative) Urine Urobilinogen (Negative) Ur Leukocyte Esterase (Negative) Urine RBC (0-4) /hpf Urine WBC (0-5) /hpf Ur Epithelial Cells (0-5) /lpf Urine Bacteria (Negative) COVID-19 Eval Order SARS-CoV-2 (PCR) (Negative) Influenza Type A (PCR) (Neg) Influenza Type B (PCR) (Neg) RSV (RT-PCR) (Neg) 09/17/20 09/17/20 09/17/20 Range/Units 03:13 02:02 01:03 WBC (4.8-10.8) K/uL RBC (4.2-5.4) M/uL Hgb (12.0-16.0) g/dL Hct (37-47) % MCV (80-100) fL MCH (25-34) pg MCHC (32-36) g/dL RDW Std Deviation (36.4-46.3) fL RDW Coeff of Roberto (11.5-14.5) % Plt Count (130-400) K/uL MPV (7.4-10.4) fL Immature Gran % (Auto) % Neut % (Auto) % Lymph % (Auto) % [place] % (Auto) % Eos % (Auto) % Baso % (Auto) % Neut # (Auto) (1.4-6.5) K/uL Lymph # (Auto) (1.2-3.4) K/uL [place] # (Auto) (0.11-0.59) K/uL Eos # (Auto) (0-0.5) K/uL Baso # (Auto) (0-0.2) K/uL Immature Gran # (Auto) (0.00-0.02) K/uL PT (9.0-12.0) Seconds INR (0.9-1.1) VBG pH (7.36-7.41) Sodium (136-145) mmol/L Potassium (3.5-5.1) mmol/L Chloride (98-107) mmol/L Carbon Dioxide (21-32) mmol/L Anion Gap (3-11) BUN (7-18) mg/dl Creatinine (0.6-1.2) mg/dl Est Cr Clr Drug Dosing Est GFR ( Amer) Est GFR (Non-Af Amer) BUN/Creatinine Ratio (10-20) Glucose (70-99) mg/dl POC Glucose 143 H 173 H 186 H (70-99) mg/dl Estimat Average Glucose mg/dl Hemoglobin A1c (4.5-5.6) % Calcium (8.5-10.1) mg/dl Phosphorus (2.5-4.9) mg/dl Magnesium (1.8-2.4) mg/dl Total Bilirubin (0.2-1) mg/dl Direct Bilirubin (0-0.2) mg/dl AST (15-37) U/L ALT (12-78) U/L Alkaline Phosphatase (45-117) U/L Troponin I (0-0.045) ng/ml Total Protein (6.4-8.2) gm/dl Albumin (3.4-5.0) gm/dl Globulin (2.5-4.0) gm/dl Albumin/Globulin Ratio (0.9-2) Beta-Hydroxybutyric Acd (0.2-2.81) mg/dl TSH (0.300-4.500) uIu/ml Urine Color Urine Appearance (Clear) Urine pH (4.5-7.5) Ur Specific [place] (1.000-1.030) Urine Protein (Negative) Urine Glucose (UA) (Negative) Urine Ketones (Negative) Urine Blood (Negative) Urine Nitrite (Negative) Urine Bilirubin (Negative) Urine Urobilinogen (Negative) Ur Leukocyte Esterase (Negative) Urine RBC (0-4) /hpf Urine WBC (0-5) /hpf Ur Epithelial Cells (0-5) /lpf Urine Bacteria (Negative) COVID-19 Eval Order SARS-CoV-2 (PCR) (Negative) Influenza Type A (PCR) (Neg) Influenza Type B (PCR) (Neg) RSV (RT-PCR) (Neg) 09/17/20 09/17/20 09/16/20 Range/Units 00:58 00:58 23:57 WBC (4.8-10.8) K/uL RBC (4.2-5.4) M/uL Hgb (12.0-16.0) g/dL Hct (37-47) % MCV (80-100) fL MCH (25-34) pg MCHC (32-36) g/dL RDW Std Deviation (36.4-46.3) fL RDW Coeff of Roberto (11.5-14.5) % Plt Count (130-400) K/uL MPV (7.4-10.4) fL Immature Gran % (Auto) % Neut % (Auto) % Lymph % (Auto) % [place] % (Auto) % Eos % (Auto) % Baso % (Auto) % Neut # (Auto) (1.4-6.5) K/uL Lymph # (Auto) (1.2-3.4) K/uL [place] # (Auto) (0.11-0.59) K/uL Eos # (Auto) (0-0.5) K/uL Baso # (Auto) (0-0.2) K/uL Immature Gran # (Auto) (0.00-0.02) K/uL PT (9.0-12.0) Seconds INR (0.9-1.1) VBG pH 7.43 H (7.36-7.41) Sodium 135 L (136-145) mmol/L Potassium 3.6 (3.5-5.1) mmol/L Chloride 101 (98-107) mmol/L Carbon Dioxide 26 (21-32) mmol/L Anion Gap 8.0 (3-11) BUN 45 H (7-18) mg/dl Creatinine 1.83 H (0.6-1.2) mg/dl Est Cr Clr Drug Dosing 28.0 Est GFR ( Amer) 29.7 Est GFR (Non-Af Amer) 25.6 BUN/Creatinine Ratio 24.3 H (10-20) Glucose 192 H (70-99) mg/dl POC Glucose 203 H (70-99) mg/dl Estimat Average Glucose mg/dl Hemoglobin A1c (4.5-5.6) % Calcium 9.1 (8.5-10.1) mg/dl Phosphorus 2.0 L (2.5-4.9) mg/dl Magnesium 2.1 (1.8-2.4) mg/dl Total Bilirubin (0.2-1) mg/dl Direct Bilirubin (0-0.2) mg/dl AST (15-37) U/L ALT (12-78) U/L Alkaline Phosphatase (45-117) U/L Troponin I (0-0.045) ng/ml Total Protein (6.4-8.2) gm/dl Albumin (3.4-5.0) gm/dl Globulin (2.5-4.0) gm/dl Albumin/Globulin Ratio (0.9-2) Beta-Hydroxybutyric Acd (0.2-2.81) mg/dl TSH (0.300-4.500) uIu/ml Urine Color Urine Appearance (Clear) Urine pH (4.5-7.5) Ur Specific [place] (1.000-1.030) Urine Protein (Negative) Urine Glucose (UA) (Negative) Urine Ketones (Negative) Urine Blood (Negative) Urine Nitrite (Negative) Urine Bilirubin (Negative) Urine Urobilinogen (Negative) Ur Leukocyte Esterase (Negative) Urine RBC (0-4) /hpf Urine WBC (0-5) /hpf Ur Epithelial Cells (0-5) /lpf Urine Bacteria (Negative) COVID-19 Eval Order SARS-CoV-2 (PCR) (Negative) Influenza Type A (PCR) (Neg) Influenza Type B (PCR) (Neg) RSV (RT-PCR) (Neg) 09/16/20 09/16/20 09/16/20 Range/Units 23:04 21:59 21:01 WBC (4.8-10.8) K/uL RBC (4.2-5.4) M/uL Hgb (12.0-16.0) g/dL Hct (37-47) % MCV (80-100) fL MCH (25-34) pg MCHC (32-36) g/dL RDW Std Deviation (36.4-46.3) fL RDW Coeff of Roberto (11.5-14.5) % Plt Count (130-400) K/uL MPV (7.4-10.4) fL Immature Gran % (Auto) % Neut % (Auto) % Lymph % (Auto) % [place] % (Auto) % Eos % (Auto) % Baso % (Auto) % Neut # (Auto) (1.4-6.5) K/uL Lymph # (Auto) (1.2-3.4) K/uL [place] # (Auto) (0.11-0.59) K/uL Eos # (Auto) (0-0.5) K/uL Baso # (Auto) (0-0.2) K/uL Immature Gran # (Auto) (0.00-0.02) K/uL PT (9.0-12.0) Seconds INR (0.9-1.1) VBG pH (7.36-7.41) Sodium 136 D (136-145) mmol/L Potassium 3.8 D (3.5-5.1) mmol/L Chloride 102 (98-107) mmol/L Carbon Dioxide 27 (21-32) mmol/L Anion Gap 7.0 (3-11) BUN 49 H (7-18) mg/dl Creatinine 1.76 H D (0.6-1.2) mg/dl Est Cr Clr Drug Dosing 29.1 Est GFR ( Amer) 31.1 Est GFR (Non-Af Amer) 26.8 BUN/Creatinine Ratio 27.6 H (10-20) Glucose 186 H (70-99) mg/dl POC Glucose 231 H 202 H (70-99) mg/dl Estimat Average Glucose mg/dl Hemoglobin A1c (4.5-5.6) % Calcium 8.9 (8.5-10.1) mg/dl Phosphorus 2.4 L (2.5-4.9) mg/dl Magnesium 2.1 (1.8-2.4) mg/dl Total Bilirubin (0.2-1) mg/dl Direct Bilirubin (0-0.2) mg/dl AST (15-37) U/L ALT (12-78) U/L Alkaline Phosphatase (45-117) U/L Troponin I (0-0.045) ng/ml Total Protein (6.4-8.2) gm/dl Albumin (3.4-5.0) gm/dl Globulin (2.5-4.0) gm/dl Albumin/Globulin Ratio (0.9-2) Beta-Hydroxybutyric Acd (0.2-2.81) mg/dl TSH (0.300-4.500) uIu/ml Urine Color Urine Appearance (Clear) Urine pH (4.5-7.5) Ur Specific [place] (1.000-1.030) Urine Protein (Negative) Urine Glucose (UA) (Negative) Urine Ketones (Negative) Urine Blood (Negative) Urine Nitrite (Negative) Urine Bilirubin (Negative) Urine Urobilinogen (Negative) Ur Leukocyte Esterase (Negative) Urine RBC (0-4) /hpf Urine WBC (0-5) /hpf Ur Epithelial Cells (0-5) /lpf Urine Bacteria (Negative) COVID-19 Eval Order SARS-CoV-2 (PCR) (Negative) Influenza Type A (PCR) (Neg) Influenza Type B (PCR) (Neg) RSV (RT-PCR) (Neg) 09/16/20 09/16/20 09/16/20 Range/Units 21:01 21:00 21:00 WBC (4.8-10.8) K/uL RBC (4.2-5.4) M/uL Hgb (12.0-16.0) g/dL Hct (37-47) % MCV (80-100) fL MCH (25-34) pg MCHC (32-36) g/dL RDW Std Deviation (36.4-46.3) fL RDW Coeff of Roberto (11.5-14.5) % Plt Count (130-400) K/uL MPV (7.4-10.4) fL Immature Gran % (Auto) % Neut % (Auto) % Lymph % (Auto) % [place] % (Auto) % Eos % (Auto) % Baso % (Auto) % Neut # (Auto) (1.4-6.5) K/uL Lymph # (Auto) (1.2-3.4) K/uL [place] # (Auto) (0.11-0.59) K/uL Eos # (Auto) (0-0.5) K/uL Baso # (Auto) (0-0.2) K/uL Immature Gran # (Auto) (0.00-0.02) K/uL PT (9.0-12.0) Seconds INR (0.9-1.1) VBG pH 7.42 H (7.36-7.41) Sodium (136-145) mmol/L Potassium (3.5-5.1) mmol/L Chloride (98-107) mmol/L Carbon Dioxide (21-32) mmol/L Anion Gap (3-11) BUN (7-18) mg/dl Creatinine (0.6-1.2) mg/dl Est Cr Clr Drug Dosing Est GFR ( Amer) Est GFR (Non-Af Amer) BUN/Creatinine Ratio (10-20) Glucose (70-99) mg/dl POC Glucose 176 H (70-99) mg/dl Estimat Average Glucose 390 mg/dl Hemoglobin A1c 15.2 H (4.5-5.6) % Calcium (8.5-10.1) mg/dl Phosphorus (2.5-4.9) mg/dl Magnesium (1.8-2.4) mg/dl Total Bilirubin (0.2-1) mg/dl Direct Bilirubin (0-0.2) mg/dl AST (15-37) U/L ALT (12-78) U/L Alkaline Phosphatase (45-117) U/L Troponin I (0-0.045) ng/ml Total Protein (6.4-8.2) gm/dl Albumin (3.4-5.0) gm/dl Globulin (2.5-4.0) gm/dl Albumin/Globulin Ratio (0.9-2) Beta-Hydroxybutyric Acd (0.2-2.81) mg/dl TSH (0.300-4.500) uIu/ml Urine Color Urine Appearance (Clear) Urine pH (4.5-7.5) Ur Specific [place] (1.000-1.030) Urine Protein (Negative) Urine Glucose (UA) (Negative) Urine Ketones (Negative) Urine Blood (Negative) Urine Nitrite (Negative) Urine Bilirubin (Negative) Urine Urobilinogen (Negative) Ur Leukocyte Esterase (Negative) Urine RBC (0-4) /hpf Urine WBC (0-5) /hpf Ur Epithelial Cells (0-5) /lpf Urine Bacteria (Negative) COVID-19 Eval Order SARS-CoV-2 (PCR) (Negative) Influenza Type A (PCR) (Neg) Influenza Type B (PCR) (Neg) RSV (RT-PCR) (Neg) 09/16/20 09/16/20 09/16/20 Range/Units 19:28 18:05 16:31 WBC (4.8-10.8) K/uL RBC (4.2-5.4) M/uL Hgb (12.0-16.0) g/dL Hct (37-47) % MCV (80-100) fL MCH (25-34) pg MCHC (32-36) g/dL RDW Std Deviation (36.4-46.3) fL RDW Coeff of Roberto (11.5-14.5) % Plt Count (130-400) K/uL MPV (7.4-10.4) fL Immature Gran % (Auto) % Neut % (Auto) % Lymph % (Auto) % [place] % (Auto) % Eos % (Auto) % Baso % (Auto) % Neut # (Auto) (1.4-6.5) K/uL Lymph # (Auto) (1.2-3.4) K/uL [place] # (Auto) (0.11-0.59) K/uL Eos # (Auto) (0-0.5) K/uL Baso # (Auto) (0-0.2) K/uL Immature Gran # (Auto) (0.00-0.02) K/uL PT (9.0-12.0) Seconds INR (0.9-1.1) VBG pH (7.36-7.41) Sodium (136-145) mmol/L Potassium (3.5-5.1) mmol/L Chloride (98-107) mmol/L Carbon Dioxide (21-32) mmol/L Anion Gap (3-11) BUN (7-18) mg/dl Creatinine (0.6-1.2) mg/dl Est Cr Clr Drug Dosing Est GFR ( Amer) Est GFR (Non-Af Amer) BUN/Creatinine Ratio (10-20) Glucose (70-99) mg/dl POC Glucose 171 H 242 H 311 H* (70-99) mg/dl Estimat Average Glucose mg/dl Hemoglobin A1c (4.5-5.6) % Calcium (8.5-10.1) mg/dl Phosphorus (2.5-4.9) mg/dl Magnesium (1.8-2.4) mg/dl Total Bilirubin (0.2-1) mg/dl Direct Bilirubin (0-0.2) mg/dl AST (15-37) U/L ALT (12-78) U/L Alkaline Phosphatase (45-117) U/L Troponin I (0-0.045) ng/ml Total Protein (6.4-8.2) gm/dl Albumin (3.4-5.0) gm/dl Globulin (2.5-4.0) gm/dl Albumin/Globulin Ratio (0.9-2) Beta-Hydroxybutyric Acd (0.2-2.81) mg/dl TSH (0.300-4.500) uIu/ml Urine Color Urine Appearance (Clear) Urine pH (4.5-7.5) Ur Specific [place] (1.000-1.030) Urine Protein (Negative) Urine Glucose (UA) (Negative) Urine Ketones (Negative) Urine Blood (Negative) Urine Nitrite (Negative) Urine Bilirubin (Negative) Urine Urobilinogen (Negative) Ur Leukocyte Esterase (Negative) Urine RBC (0-4) /hpf Urine WBC (0-5) /hpf Ur Epithelial Cells (0-5) /lpf Urine Bacteria (Negative) COVID-19 Eval Order SARS-CoV-2 (PCR) (Negative) Influenza Type A (PCR) (Neg) Influenza Type B (PCR) (Neg) RSV (RT-PCR) (Neg) 09/16/20 09/16/20 09/16/20 Range/Units 14:59 13:15 13:15 WBC (4.8-10.8) K/uL RBC (4.2-5.4) M/uL Hgb (12.0-16.0) g/dL Hct (37-47) % MCV (80-100) fL MCH (25-34) pg MCHC (32-36) g/dL RDW Std Deviation (36.4-46.3) fL RDW Coeff of Roberto (11.5-14.5) % Plt Count (130-400) K/uL MPV (7.4-10.4) fL Immature Gran % (Auto) % Neut % (Auto) % Lymph % (Auto) % [place] % (Auto) % Eos % (Auto) % Baso % (Auto) % Neut # (Auto) (1.4-6.5) K/uL Lymph # (Auto) (1.2-3.4) K/uL [place] # (Auto) (0.11-0.59) K/uL Eos # (Auto) (0-0.5) K/uL Baso # (Auto) (0-0.2) K/uL Immature Gran # (Auto) (0.00-0.02) K/uL PT (9.0-12.0) Seconds INR (0.9-1.1) VBG pH (7.36-7.41) Sodium (136-145) mmol/L Potassium (3.5-5.1) mmol/L Chloride (98-107) mmol/L Carbon Dioxide (21-32) mmol/L Anion Gap (3-11) BUN (7-18) mg/dl Creatinine (0.6-1.2) mg/dl Est Cr Clr Drug Dosing Est GFR ( Amer) Est GFR (Non-Af Amer) BUN/Creatinine Ratio (10-20) Glucose (70-99) mg/dl POC Glucose 495 H* (70-99) mg/dl Estimat Average Glucose mg/dl Hemoglobin A1c (4.5-5.6) % Calcium (8.5-10.1) mg/dl Phosphorus (2.5-4.9) mg/dl Magnesium (1.8-2.4) mg/dl Total Bilirubin (0.2-1) mg/dl Direct Bilirubin (0-0.2) mg/dl AST (15-37) U/L ALT (12-78) U/L Alkaline Phosphatase (45-117) U/L Troponin I (0-0.045) ng/ml Total Protein (6.4-8.2) gm/dl Albumin (3.4-5.0) gm/dl Globulin (2.5-4.0) gm/dl Albumin/Globulin Ratio (0.9-2) Beta-Hydroxybutyric Acd (0.2-2.81) mg/dl TSH (0.300-4.500) uIu/ml Urine Color Urine Appearance (Clear) Urine pH (4.5-7.5) Ur Specific [place] (1.000-1.030) Urine Protein (Negative) Urine Glucose (UA) (Negative) Urine Ketones (Negative) Urine Blood (Negative) Urine Nitrite (Negative) Urine Bilirubin (Negative) Urine Urobilinogen (Negative) Ur Leukocyte Esterase (Negative) Urine RBC (0-4) /hpf Urine WBC (0-5) /hpf Ur Epithelial Cells (0-5) /lpf Urine Bacteria (Negative) COVID-19 Eval Order CovFluRsv at [facility] SARS-CoV-2 (PCR) NEGATIVE (Negative) Influenza Type A (PCR) Negative (Neg) Influenza Type B (PCR) Negative (Neg) RSV (RT-PCR) Negative (Neg) 09/16/20 09/16/20 09/16/20 Range/Units 11:17 11:17 11:14 WBC 14.73 H (4.8-10.8) K/uL RBC 4.67 (4.2-5.4) M/uL Hgb 14.4 (12.0-16.0) g/dL Hct 42.8 (37-47) % MCV 91.6 (80-100) fL MCH 30.8 (25-34) pg MCHC 33.6 (32-36) g/dL RDW Std Deviation 46.9 H (36.4-46.3) fL RDW Coeff of Roberto 14.0 (11.5-14.5) % Plt Count 261 (130-400) K/uL MPV 11.7 H (7.4-10.4) fL Immature Gran % (Auto) 0.3 % Neut % (Auto) 82.2 % Lymph % (Auto) 10.9 % [place] % (Auto) 5.0 % Eos % (Auto) 1.5 % Baso % (Auto) 0.1 % Neut # (Auto) 12.11 H (1.4-6.5) K/uL Lymph # (Auto) 1.61 (1.2-3.4) K/uL [place] # (Auto) 0.74 H (0.11-0.59) K/uL Eos # (Auto) 0.22 (0-0.5) K/uL Baso # (Auto) 0.01 (0-0.2) K/uL Immature Gran # (Auto) 0.04 H (0.00-0.02) K/uL PT (9.0-12.0) Seconds INR (0.9-1.1) VBG pH (7.36-7.41) Sodium 128 L (136-145) mmol/L Potassium 4.5 (3.5-5.1) mmol/L Chloride 94 L (98-107) mmol/L Carbon Dioxide 26 (21-32) mmol/L Anion Gap 8.0 (3-11) BUN 54 H (7-18) mg/dl Creatinine 2.46 H (0.6-1.2) mg/dl Est Cr Clr Drug Dosing Not Reportable Est GFR ( Amer) 20.8 Est GFR (Non-Af Amer) 17.9 BUN/Creatinine Ratio 22.1 H (10-20) Glucose 772 H* (70-99) mg/dl POC Glucose (70-99) mg/dl Estimat Average Glucose mg/dl Hemoglobin A1c (4.5-5.6) % Calcium 9.0 (8.5-10.1) mg/dl Phosphorus (2.5-4.9) mg/dl Magnesium 2.3 (1.8-2.4) mg/dl Total Bilirubin 1.2 H (0.2-1) mg/dl Direct Bilirubin (0-0.2) mg/dl AST 13 L (15-37) U/L ALT 113 H (12-78) U/L Alkaline Phosphatase 192 H (45-117) U/L Troponin I < 0.015 (0-0.045) ng/ml Total Protein 7.0 (6.4-8.2) gm/dl Albumin 3.2 L (3.4-5.0) gm/dl Globulin 3.8 (2.5-4.0) gm/dl Albumin/Globulin Ratio 0.8 L (0.9-2) Beta-Hydroxybutyric Acd 3.41 H (0.2-2.81) mg/dl TSH 3.190 (0.300-4.500) uIu/ml Urine Color Yellow Urine Appearance Clear (Clear) Urine pH 5.5 (4.5-7.5) Ur Specific [place] 1.010 (1.000-1.030) Urine Protein Trace H (Negative) Urine Glucose (UA) 2+ H (Negative) Urine Ketones Negative (Negative) Urine Blood 1+ H (Negative) Urine Nitrite Positive A (Negative) Urine Bilirubin Negative (Negative) Urine Urobilinogen Negative (Negative) Ur Leukocyte Esterase Trace H (Negative) Urine RBC 0-4 (0-4) /hpf Urine WBC 10-30 H (0-5) /hpf Ur Epithelial Cells 5-10 H (0-5) /lpf Urine Bacteria 2+ H (Negative) COVID-19 Eval Order SARS-CoV-2 (PCR) (Negative) Influenza Type A (PCR) (Neg) Influenza Type B (PCR) (Neg) RSV (RT-PCR) (Neg) Diagnostic Findings CTAP HISTORY: Acute urinary tract infection with acute kidney injury elevated lfts, UTI, ZUHAIR TECHNIQUE: Multiaxial CT images of the abdomen and pelvis were performed without contrast. A dose lowering technique was utilized adhering to the principles of ALARA. COMPARISON STUDY: None. FINDINGS: 4 mm solid nodule of the basal right lower lobe, image 21. No pneumatosis or pneumoperitoneum. Coronary artery calcifications. The unenhanced spleen, pancreas, adrenal glands and unenhanced liver appear unremarkable. Layering stones within the gallbladder lumen. Hyperdense foci within the common bile duct measuring up to 6 mm suggestive of choledocholithiasis, image 134. The common bile duct measures up to 10 mm transversely. Cortical thinning of the bilateral kidneys. There are a few hyperdense lesions of the bilateral kidneys measuring up to 7 mm on the left suggestive of proteinaceous or hemorrhagic cysts. There are a few simple cysts of the bilateral kidneys measuring up to 3.7 cm on the right. No renal or ureteral calculi or hydronephrosis. Partially decompressed urinary bladder with mild wall thickening. Unremarkable uterus. Bilateral tubo-ovarian occlusion devices. No adnexal mass lesion. Calcified plaque of the dominant aorta without aneurysm. No adenopathy. I'll distal esophageal wall thickening with small hiatal hernia. No bowel obstruction. Colonic diverticulosis. There is mild focal wall thickening involving the hepatic flexure with trace pericolonic stranding as noted on image 162 series 3. The remainder of the colon appears normal. Normal appendix. No ascites. Partially imaged 1.6 cm nodule of the lateral right breast on image 1. Degenerative changes of the spine, pelvis and hips. No acute fracture or suspicious bone lesion. IMPRESSION: 1. Cholelithiasis with hyperdense foci within the common bile duct suggestive of choledocholithiasis resulting in mild extrahepatic biliary ductal dilation. 2. Focal wall thickening with minimal pericolonic stranding involves the hepatic flexure. This may be secondary to a mild acute diverticulitis, however should be correlated with colonoscopy to exclude an underlying lesion. 3. No bowel obstruction or pneumoperitoneum. 4. 1.6 cm partially imaged nodule of the lateral right breast is suspicious for a mass. Nonemergent mammographic workup is needed. 5. No urolith or obstructive uropathy. 6. Additional findings as above.
[2020-09-17] MEDS: FLUTICASONE/VILANTEROL 100/25MCG 14 PUFFS/INHALER INH SCH (08:45)
[2020-09-17 08:58] LABS: Prothrombin Time 10.2 Seconds (9.0-12.0)
[2020-09-17] MEDS ORDERED: INSULIN GLARGINE SOLOSTAR 100 UNITS/ML 3 ML PEN SC ONE ×2 (09:00)
[2020-09-17 09:15] LABS: BUN Creatinine Ratio 24.6 (10-20); Calcium 8.7 mg/dl (8.5-10.1); Creatinine Clr Calc Pharmacy 31.8 ml/min; Est GFR (African American) 32.9; Est GFR (Non-African American) 28.4; Magnesium 2.2 mg/dl (1.8-2.4); Phosphorus 2.4 mg/dl (2.5-4.9); Potassium 3.4 mmol/L (3.5-5.1)
[2020-09-17] MEDS ORDERED: hydrALAZINE HCL 20 MG/ML VIAL IV PRN (09:36)
[2020-09-17] MEDS: ASPIRIN 81 MG ECTAB PO SCH (10:38)
[2020-09-17] MEDS: amLODIPine BESYLATE 5 MG TAB PO SCH (10:58)
[2020-09-17] MEDS: ATENOLOL 50 MG TABLET PO SCH (10:58)
[2020-09-17] MEDS: PANTOprazole 40 MG TAB PO SCH (10:58)
[2020-09-17] MEDS: traMADol HCL 50 MG TABLET PO SCH (10:59)
[2020-09-17] MEDS ORDERED: cefTRIAXone SODIUM 2,000 MG in DEXTROSE 5% 50 ML IV SCH (13:00)
--- NOTE | 2020-09-17 13:06 | Medical Student Progress Note ---
Date of Service September 17, 2020 Assessment & Plan (1) Hyperosmolar hyperglycemic state (HHS): Ms. Regalado is an 80yo female with PMHx of DMII, HTN, COPD, hypothyroidism, and CKD1 who presented to the ED 09/16 due to outpatient labs showing abnormal kidney function. In the ED she was found to have BUN 54, Cr. 2.4, glucose 772, trace beta hydroxybutyric acid, likely HHS. Pt reports never having HHS previously, but does endorse recent thirstiness, urinary frequency, or urinary urgency. U/A indicated possible UTI and CT A/P indicated possible choledocholithiasis and possible mild acute diverticulitis, so the source of underlying infection which likely prompted the HHS is unclear at this time. ERCP should help evaluate choledocholithiasis. -Presenting glucose 772, most recently down to 131. A1c 15.2 and pt does not check sugars at home. -Volume resus and insulin drip in ED, currently on Normosol 100/hr and insulin aspart. -VBG pH 7.43, anion gap 7 -Pt thirst, urinary freq, and urinary urgency could be due to HHS or due to UTI. Symptomatically doing well today, with no confusion or pain -FEN: Normosol 100/hr IV, electrolytes WNL, NPO awaiting ERCP -DVT PPx: Hold heparin 5000 SQ BID until after ERCP, then continue -Code status: Full code -Disposition: Remain inpatient awaiting ERCP today and receiving fluid and insulin for HHS and Abx for infection. (2) Choledocholithiasis: -CT A/P showed cholelithiasis with hyperdense foci suggestive of choledocholithiasis resulting in mild extrahepatic biliary ductal dilation. -Pt experiencing no pain, nontender on exam, anicteric sclera, no fevers, no AMS or hypotension -WBC 12.88 with mild left shift, AST 14, ALT 79, alk phos 142, Tbili 0.7. -ERCP scheduled for this afternoon, awaiting results. NPO today, on IVF -Continue pip/tazo 120@30/hr IV for antibiotic coverage of infection with multiple possible sources including UTI and choledocholithiasis. -BCx pending -CT A/P also found colonic wall thickening and stranding possibly relating to a mild acute diverticulitis involving hepatic flexure. GI recommends outpatient colonoscopy in a few weeks to evaluate. -GI consulted, appreciate their recommendations (3) UTI (urinary tract infection): -As above, pt experiencing urinary urgency and frequency, although no dysuria. Could be due to HHS and/or UTI. -U/A showed 2+ glucose, +nitrite, +trace leuk est, 10-30 WBC, 2+ bacteria, but also 5-10 epithelial cells. Given HHS context and possible Sx, likely UTI present. -Continue pip/tazo 120@30/hr IV for antibiotic coverage of infection with multiple possible sources including UTI and choledocholithiasis. -BCx pending Hematuria presence: without hematuria Urinary tract infection type: acute cystitis Qualified Code(s): N30.00 - Acute cystitis without hematuria (4) Diabetes: -Hold home glimiperide. Continue insulin aspart while inpatient -Glucose 772 now down to 131. -A1c 15.2 indicates there is chronically high glucose which is poorly managed. Recommend pt work with PCP outpatient to optimize medication management Chronic kidney disease stage: unspecified stage Diabetes mellitus complication status: with kidney complications Diabetes mellitus buttermaker helper insulin use: without buttermaker helper use Diabetes mellitus type: type 2 (5) Hypothyroidism: Continue home levothyroxine 137mcg, TSH 3.19 (6) Hypertension: -Continue home amlodipine and atenolol. Hold home chlorthalidone and losartan. -Cr today 1.76 down from 2.4 on admission, unclear Cr baseline Hypertension type: unspecified Qualified Code(s): I10 - Essential (primary) hypertension (7) COPD (chronic obstructive pulmonary disease): -Pt is a never smoker although PCP has diagnosed her with COPD. Continue fluticasone/vilanterol since pt takes fluticasone/salmeterol at home. CTAB on exam today. (8) Osteoarthritis: -Chronic knee pain on home tramadol. Continue tramadol (9) GERD (gastroesophageal reflux disease): -Continue home omeprazole 20 Admission and Anticipated Discharge Date Admission Date: September 16, 2020 Supervising Attestation Attending Attestation I also saw the patient with the resident and medical student and confirmed buenrostro portions of the history and physical examination. Upon exam this morning, she is resting in bed. She has no complaints. Son, who also works at the hospital, is at bedside. The patient is scheduled for a ERCP later today and is currently n.p.o. Exam 169/78, 63, 22, 36.6, 98% on room air Alert and oriented. No acute distress. Nontoxic appearance. Hemodynamically stable. Cardiovascular regular rate. 2/6 stock ejection murmur heard best at the left upper sternal border. Lungs are clear throughout. Abdomen is obese but soft and nontender. Socially no tenderness in the right upper quadrant. Laboratory data White cell count 12.88, hemoglobin 13.3, platelet count 234. Basic metabolic panel is pending. Hemoglobin A1c 15.2% AST 14, ALT 79, alkaline phosphatase 142. Microbiology A urine culture is growing gram-negative bacilli. Blood cultures are negative thus far. Imaging A CT scan of the abdomen and pelvis taken upon admission shows cholelithiasis with a hyperdense foci within the common bile duct suggesting choledocholit hiasis. There is also noted to be some focal wall thickening with very minimal pericolonic stranding at the hepatic flexure. Also incidental note is made of a 1.6 cm partially imaged nodule on the lateral right breast which is suspicious for a mass. Nonemergent mammographic work-up was recommended. Impression and Plan Hyperosmolar hyperglycemic state (HHS) Diabetes, uncontrolled Improved Recheck BMP this morning Choledocholithiasis Gastroenterology consult appreciated ERCP later today Questionable CT findings, colon at hepatic flexure No clinical history or exam findings to suggest colitis Recommend outpatient colonoscopy Urinary tract infection Continue antibiotics pending speciation and sensitivity Suspicious right breast mass seen on CT Outpatient mammography Hypertension Hypothyroidism COPD Subjective Ms. Regalado states she is feeling well today and never had many Sx but only came to the hospital since her PCP at [facility] told her that her kidney numbers were too high. She reports feeling well the past few days with no pain of any kind aside from her chronic OA knee pain, no subjective fevers, no confusion, and no dizziness. She says she tripped and fell last , and while she didn't hit her head she has felt a bit weaker the past few days when walking with her cane. She has also had some fatigue and decreased appetite over the past two weeks. She endorses increased thirst, urinary urgency, and frequency, although no dysuria. She states her blood sugars usually run in the 150s, although she does not check them frequently and does not know her recent A1c numbers. Review of Systems Review of Systems: All systems reviewed & are unremarkable except as noted in HPI & below Constitutional: + fatigue and + weakness; no fever, no anorexia and no weight loss Respiratory: no cough and no dyspnea Cardiovascular: no chest pain, no dyspnea, no palpitations and no syncope Gastrointestinal: no abdominal pain, no nausea, no vomiting, no dysphagia, no constipation and no diarrhea/loose stools Genitourinary: + urinary frequency and + urinary urgency; no dysuria Musculoskeletal: + joint pain (chronic knee pain on tramadol) Neurologic: no dizziness, no headache(s) and no confusion Physical Exam Constitutional: well developed, well nourished, cooperative and comfortable; no acute distress Eyes: PERRL, conjunctivae normal, anicteric sclerae ENMT: external ear and nose normal, oropharynx normal Respiratory: normal respiratory effort, lungs clear to auscultation Auscultation: no rales, no rhonchi and no wheezes Cardiovascular: RRR, no murmur, no edema Heart Sounds: normal S1 and normal S2; no gallop, no murmur and no cardiac rub Gastrointestinal (Abdomen): normal bowel sounds, soft, nontender, no hepatosp lenomegaly Percussion/Palpation: abdomen nontender, no guarding, abdomen not rigid and no hepatomegaly negative Briones's sign Skin: no rashes, warm and dry Neurologic: CN's II-XI intact bilaterally Psychiatric: A+Ox3, euthymic affect Eye Contact: good eye contact Results & Data ([facility]) Vital Signs (Past 12 Hours) Vital Signs Temp Pulse Resp BP Pulse Ox 09/17/20 11:50 36.6 C 63 22 169/78 H 98 09/17/20 07:48 36.3 C L 69 18 177/83 H 94 09/17/20 04:35 36.5 C 62 18 158/73 H 96
[2020-09-17 13:59] LABS: BUN Creatinine Ratio 21.5 (10-20); Calcium 8.7 mg/dl (8.5-10.1); Creatinine Clr Calc Pharmacy 32.6 ml/min; Est GFR (African American) 33.9; Est GFR (Non-African American) 29.2; Magnesium 2.2 mg/dl (1.8-2.4); Phosphorus 2.5 mg/dl (2.5-4.9); Potassium 3.7 mmol/L (3.5-5.1)
--- NOTE | 2020-09-17 14:32 | Pharmacy Report ---
Pharmacy Glycemic Short Note 2 - Date of Service September 17, 2020 - Glycemic Short BSG Results (Last 24 hours): 09/16/20 09/16/20 09/16/20 14:59 16:31 18:05 Glucose POC Glucose 495 H* 311 H* 242 H 09/16/20 09/16/20 09/16/20 19:28 21:00 21:01 Glucose 186 H POC Glucose 171 H 176 H 09/16/20 09/16/20 09/16/20 21:59 23:04 23:57 Glucose POC Glucose 202 H 231 H 203 H 09/17/20 09/17/20 09/17/20 00:58 01:03 02:02 Glucose 192 H POC Glucose 186 H 173 H 09/17/20 09/17/20 09/17/20 03:13 03:56 05:13 Glucose 163 H POC Glucose 143 H 191 H 09/17/20 09/17/20 09/17/20 06:06 07:47 08:25 Glucose 153 H POC Glucose 197 H 148 H 09/17/20 09/17/20 09/17/20 09:43 11:49 12:28 Glucose 146 H POC Glucose 131 H 131 H OUTPATIENT ANTIDIABETIC REGIMEN: * Glimepiride 1 mg PO daily * HbA1c = 15.2% (09/16/20) ASSESSMENT: * 80 yo F admitted secondary to [facility]. Pharmacy was consulted for assistance with inpatient glycemic management. * Initial BSG was 772 mg/dL. On this BMP: Na 128, K 4.5, CO2 26, Anion Gap 8.0, BUN 54, SCr 2.46, beta-OH 3.41. No ketones in urine. * Patient was given a 10 unit IV insulin bolus followed by an insulin drip starting at 9.9 units/hr. * BSG trends last night were: [id number] mg/dL * Insulin drip rates decreased steadily throughout the afternoon: 9.9 u/hr --> 5.9 u/hr --> 4.7 u/hr --> shut off for 1 hour --> 2 u/hr * 20 units of Lantus were given last evening * This morning, patient's BMP was: Na 139, K 3.7, CO2 27, Anion Gap 8.0, BUN 35, SCr 1.64, Glu 146 * BSG trends this morning were: [phone] mg/dL * 25 units of Lantus were given this morning as well based on overnight drip rates * Insulin drip ran at 2.4 u/hr all morning until BSG was 148 mg/dL. At this time, drip was decreased 1.9 u/hr. The next BSG had decreased to 131 mg/dL so decision was made to discontinue insulin gtt. * Patient is NPO and is currently undergoing an ERCP. Expect a diet to be ordered afterwards. * Will add a Lantus scale for this evening in the event patient is still NPO * Continue with q4h accuchecks at CF 15 and CR 5 PLAN FOR INPATIENT GLYCEMIC CONTROL: * Hold outpatient oral diabetes medications * Basal insulin * Lantus 25 units SQ AM * Lantus 15-25 units SQ PM (see eMAR for more details) * Bolus insulin * NovoLog per scale ACHS or Q6hrs while NPO * Goal Range: Low 110 mg/dL - High 140 mg/dL * Correction Factor: 15 mg/dL/unit * Nutritional / Prandial insulin per carb ratio of 1 unit per 5 grams CHO consumed PLAN FOR DISCHARGE: * To be determined
[2020-09-17] MEDS ORDERED: ONDANSETRON INJ 2 MG/ML 2 ML VIAL ONE (14:34)
[2020-09-17] MEDS ORDERED: LIDOCAINE HCL 2% 2 ML VIAL/AMP(20MG/ML) INFIL ONE (14:34)
[2020-09-17] MEDS ORDERED: PROPOFOL IV EMULSION 10 MG/ML 20 ML VIAL IV ONE (14:34)
[2020-09-17] MEDS ORDERED: SUCCINYLCHOLINE CHLORIDE 20 MG/ML 10 ML VIAL IV ONE (14:34)
[2020-09-17] MEDS ORDERED: ROCURONIUM BROMIDE 10 MG/ML 5 ML VIAL IV ONE (14:34)
--- NOTE | 2020-09-17 14:41 | History & Physical Bridge Note ---
Date of Service September 17, 2020 History & Physical Bridge Note I have examined the patient, reviewed the History & Physical and in the interval since the performance of the History & Physical I have noted the following changes of clinical significance: no changes noted.
[2020-09-17] MEDS ORDERED: INDOMETHACIN 50 MG SUPP PR ONE ×2 (14:42→14:46)
[2020-09-17] MEDS ORDERED: fentaNYL citrate 100 MCG/2 ML VIAL ONE (14:48)
--- NOTE | 2020-09-17 15:00 | Anesthesiology Consultation ---
Date of Service September 17, 2020 Assessment & Plan (1) Encounter for pre-operative examination: Chart Review Chart Review: Acceptable Risk for Surgery and Patient NOT seen in Pre Admission Testing Consults Requested none ASA ASA3 Proposed Anesthesia Anesthesia Type: General Risk / Benefits Reviewed With: PT / POA / Parent / Guardian, Accepts Plan and I nformed Consent Obtained History Surgery Operation Date: 09/17/20 07:50 Proposed Procedures p Endoscopic Retrograde Cholangiopancreatogram - Rosa Chan DO Height/Weight Height: 5 ft 4 in Weight: 106.6 kg Allergies Allergy/AdvReac Type Severity Reaction Status Date / Time ibuprofen AdvReac Unknown Unverified 09/16/20 10:46 Medications Home Medications Medication Instructions Recorded Confirmed Last Taken amlodipine 10 mg PO DAILY 09/16/20 09/16/20 09/16/20 aspirin 81 mg PO DAILY 09/16/20 09/16/20 09/16/20 atenolol 100 mg PO DAILY 09/16/20 09/16/20 09/16/20 atorvastatin 40 mg PO PM 09/16/20 09/16/20 09/15/20 chlorthalidone 25 mg PO DAILY 09/16/20 09/16/20 09/16/20 fluticasone propion-salmeterol 1 inh INHALATION BID 09/16/20 09/16/20 09/16/20 glimepiride 1 mg PO DAILY 09/16/20 09/16/20 09/16/20 levothyroxine 137 mcg PO DAILY 09/16/20 09/16/20 09/16/20 losartan 100 mg PO DAILY 09/16/20 09/16/20 09/16/20 omeprazole 20 mg PO DAILY 09/16/20 09/16/20 09/16/20 tramadol 50 mg PO BID 09/16/20 09/16/20 09/16/20 Active Medications Generic Name Dose Route Start Last Admin Trade Name Freq PRN Reason Stop Dose Admin Amlodipine Besylate 10 mg 09/17/20 09:00 09/17/20 10:58 Amlodipine Besylate 5 Mg Tab PO 10/17/20 08:59 Not Given DAILY FRANTZ Aspirin 81 mg 09/17/20 09:00 09/17/20 10:38 Aspirin 81 Mg Ectab PO 10/17/20 08:59 Not Given DAILY FRANTZ Atenolol 100 mg 09/17/20 09:00 09/17/20 10:58 Atenolol 50 Mg Tablet PO 10/17/20 08:59 Not Given DAILY FRANTZ Atorvastatin Calcium 40 mg 09/16/20 21:00 09/16/20 22:20 Atorvastatin 40 Mg Tab PO 10/16/20 20:59 40 mg PM FRANTZ Administration Fluticasone/Vilanterol 1 puffs 09/17/20 09:00 09/17/20 08:45 Fluticasone/Vilanterol 100/25mcg 14 Puffs/Inhaler INH 10/17/20 08:59 1 puffs DAILY FRANTZ Administration Protocol Parenteral Electrolytes 1,000 mls @ 100 mls/hr 09/16/20 14:00 09/17/20 12:02 Normosol-R IV 10/16/20 13:59 100 mls/hr .Q10H FRANTZ Administration Piperacillin Sod/Tazobactam 120 mls @ 30 mls/hr 09/17/20 04:00 09/17/20 12:06 Sod 4.5 gm/ Dextrose IV 09/27/20 03:59 30 mls/hr Q8H FRANTZ Administration Protocol Insulin Aspart 0 units 09/17/20 12:00 09/17/20 12:07 Insulin Aspart 100 Units/Ml 3 Ml Pen SC 10/17/20 00:00 Not Given Q4 FRANTZ Protocol Levothyroxine Sodium 137 mcg 09/17/20 06:30 09/17/20 05:21 Levothyroxine Sodium 137 Mcg Tablet PO 10/17/20 06:29 137 mcg DAILYBB FRANTZ Administration Pantoprazole Sodium 40 mg 09/17/20 09:00 09/17/20 10:58 Pantoprazole 40 Mg Tab PO 10/17/20 08:59 Not Given DAILY FRANTZ Protocol Tramadol HCl 50 mg 09/17/20 09:00 09/17/20 10:59 Tramadol Hcl 50 Mg Tablet PO 10/17/20 08:59 Not Given DAILY FRANTZ NPO Date Last Intake of Fluids: 09/16/20 Time Last Intake of Fluids: 09:00 Date Last Intake of Solids: 09/16/20 Time Last Intake of Solids: 09:00 Past Medical History Medical History Hypothyroidism Exercise / Class Metabolic Activity II 4-5 Yardwork/Stairs/Walk up hill Past Family History Family History Brother Cancer Other Diabetes Past Anesthesia History No Hx of Anesthesia Complications and No Family Hx of Anesthesia Complications History of PONV No Hx of PONV and No Hx of Motion Sickness Social History Smoking Status: Never smoker Do You Dip or Chew Tobacco: No Hx Alcohol Use: No Hx Substance Use: No Physical Exam Vital Signs Last Vital Signs Temp 36.6 C 09/17/20 14:26 Pulse 70 09/17/20 14:26 Resp 18 09/17/20 14:26 BP 147/57 H 09/17/20 14:26 Pulse Ox 96 09/17/20 14:26 ENMT Mouth: + oropharynx abnormality (soft pallate cleft) Thyromental Distance: > or= 3.5 Finger Breadths Mallampati Class: II Neck normal visual inspection Respiratory normal respiratory effort Auscultation: lungs clear to auscultation bilaterally Cardiovascular Rate/Rhythm: regular rate and regular rhythm Psychiatric Orientation: alert Testing Laboratory Results 09/17/20 03:56 09/17/20 12:28 PT 10.2 Seconds (9.0-12.0) 09/17/20 08:25 INR 1.0 (0.9-1.1) 09/17/20 08:25 Hemoglobin A1c 15.2 % (4.5-5.6) H 09/16/20 21:01 Urine Color Yellow 09/16/20 11:17 Urine Appearance Clear (Clear) 09/16/20 11:17 Urine pH 5.5 (4.5-7.5) 09/16/20 11:17 Ur Specific [place] 1.010 (1.000-1.030) 09/16/20 11:17 Urine Protein Trace (Negative) H 09/16/20 11:17 Urine Glucose (UA) 2+ (Negative) H 09/16/20 11:17 Urine Ketones Negative (Negative) 09/16/20 11:17 Urine Nitrite Positive (Negative) A 09/16/20 11:17 Ur Leukocyte Esterase Trace (Negative) H 09/16/20 11:17 Urine RBC 0-4 /hpf (0-4) 09/16/20 11:17 Urine WBC 10-30 /hpf (0-5) H 09/16/20 11:17 Ur Epithelial Cells 5-10 /lpf (0-5) H 09/16/20 11:17 09/16/20 11:17 Urine Culture - Preliminary Urine,Clean Catch Gram negative bacilli 09/17/20 09/17/20 09/17/20 11:49 09:43 07:47 POC Glucose 131 H 131 H 148 H 09/17/20 09/17/20 09/17/20 06:06 05:13 03:13 POC Glucose 197 H 191 H 143 H
[2020-09-17] MEDS ORDERED: ONDANSETRON INJ 2 MG/ML 2 ML VIAL IV PRN (15:01)
[2020-09-17] MEDS ORDERED: ATROPINE SULFATE 0.1 MG/ML 10ML SYR IV PRN (15:01)
[2020-09-17] MEDS ORDERED: ePHEDrine sulfate 50 MG/ML AMP IV PRN (15:01)
[2020-09-17] MEDS ORDERED: fentaNYL citrate 100 MCG/2 ML VIAL IV PRN (15:01)
--- NOTE | 2020-09-17 15:39 | Fluoroscopy Report ---
[place] ERCP biliary ductal CLINICAL HISTORY: EXPLORE DUCTS COMPARISON STUDY: CT of the abdomen and pelvis September 16, 2020. FLUOROSCOPY TIME: 31 seconds. FLUOROSCOPIC IMAGES: 3 FINDINGS: Fluoroscopy was provided during ERCP. These images demonstrate cannulation of the common bi le duct. Balloon sweep through the common bile duct was performed. IMPRESSION: Fluoroscopy provided during ERCP. ACT 112: Negative or not required by law. Electronically signed by: Kurtis Armstrong M.D. 09/17/2020 3:38 PM
--- NOTE | 2020-09-17 15:44 | Post Operative Brief Note ---
Immediate Post Op Note v1 Date of Surgery September 17, 2020 Pre & Post Diagnosis Operation Date: 09/17/20 07:50 Pre-Op Diagnosis: Cholelithiasis Post-Op Diagnosis: Cholelithiasis I identified the patient and participated in the time-out.: Yes Procedure Operation Date: 09/17/20 07:50 Actual Procedures p Endoscopic Retrograde Cholangiopancreatogram(Not Applicable) - Rosa Chan DO Surgeon Rsoa Chan DO Pile Driving Setter none Estimated Blood Loss 0 Findings Consistent with Post-Op Diagnosis
--- NOTE | 2020-09-17 15:44 | GI REPORT ---
Patient Name: Karina Regalado Procedure Date: 09/17/2020 2:44 PM Date of : 1940 Admit Type: Inpatient Age: 80 Gender: Female Attending MD: Rosa Chan DO Procedure: ERCP Providers: Rosa Chan DO Referring MD: Kendrick Velasco Indications: Abdominal pain of suspected biliary origin, For therapy of bile duct stone(s), Elevated liver enzymes Medicines: General Anesthesia Complications: No immediate complications. Estimated blood loss: Minimal. Estimated Blood Loss: Estimated blood loss was minimal. Procedure: Pre-Anesthesia Assessment: - Prior to the procedure, a History and Physical was performed, and patient medications, allergies and sensitivities were reviewed. The patient's tolerance of previous anesthesia was reviewed. - The risks and benefits of the procedure and the sedation options and risks were discussed with the patient. All questions were answered and informed consent was obtained. - Patient identification and proposed procedure were verified prior to the procedure by the physician, the nurse and the inventory coordinator. The procedure was verified in the procedure room. - Pre-procedure physical examination revealed no contraindications to sedation. - ASA Grade Assessment: III - A patient with severe systemic disease. - After reviewing the risks and benefits, the patient was deemed in satisfactory condition to undergo the procedure. - The anesthesia plan was to use monitored anesthesia care (MAC). - Immediately prior to administration of medications, the patient was re-assessed for adequacy to receive sedatives. - The heart rate, respiratory rate, oxygen saturations, blood pressure, adequacy of pulmonary ventilation, and response to care were monitored throughout the procedure. - The physical status of the patient was re-assessed after the procedure. After obtaining informed consent, the scope was passed under direct vision. Throughout the procedure, the patient's blood pressure, pulse, and oxygen saturations were monitored continuously. The scope was introduced through the mouth, and advanced to the duodenum and used to inject contrast into the bile duct. The ERCP was accomplished without difficulty. The patient tolerated the procedure well. Findings: The liberal arts teacher film was normal. The esophagus was successfully intubated under direct vision without detailed examination of the pharynx, larynx, and associated structures, and upper GI tract. The upper GI tract was grossly normal. The major papilla was located partially within a diverticulum. The bile duct was deeply cannulated with the short-nosed traction sphincterotome and guidewire. Contrast was injected. I personally interpreted the bile duct images. Contrast extended to the entire biliary tree. The main bile duct was diffusely dilated. The largest diameter was 10 mm. The lower third of the main bile duct and middle third of the main bile duct contained filling defect(s) thought to be a stone and sludge. Biliary sphincterotomy was made with a Fusion OMNI sphincterotome using ERBE electrocautery. There was no post-sphincterotomy bleeding. To discover objects, the biliary tree was swept with a 15 mm balloon starting at the bifurcation. Sludge was swept from the duct. Many stones were removed. No stones remained. One 10 Fr by 7 cm biliary stent with a single external flap and a single internal flap was placed 7 cm into the common bile duct. Bile flowed through the stent. The stent was in good position. Indomethacin 100 mg was given via suppository to decrease the risk of post-ERCP pancreatitis (PEP). Impression: - The major papilla was located partially within a diverticulum. - Choledocholithiasis was found. Removal was accomplished with biliary sphincterotomy and balloon extraction; a stent was inserted. - One biliary stent was placed into the common bile duct. - Indomethacin given to decrease risk of post-ERCP pancreatitis. Recommendation: - Avoid aspirin and nonsteroidal anti-inflammatory medicines for 1 week. - Clear liquid diet today. - Refer to a surgeon. - Repeat ERCP in 6 weeks to remove stent. Rosa Chan D.O. Rosa Chan, 09/17/2020 3:44:10 PM This report has been signed electronically. Note Initiated On: 09/17/2020 2:44 PM Number of Addenda: 0 I attest to the content of the Intraoperative Record and orders documented therein, exceptions below {[id number]}
--- NOTE | 2020-09-17 16:56 | Anesthesiology Progress Note ---
Date of Service September 17, 2020 Anesthesia Post Procedure Vital Signs Vital Signs: Temp Pulse Pulse Pulse Pulse Resp BP 09/17/20 16:25 37 C 74 20 09/17/20 16:15 72 20 09/17/20 16:05 73 19 09/17/20 15:55 68 17 09/17/20 15:45 36.1 C L 69 16 09/17/20 14:26 36.6 C 70 70 18 09/17/20 11:50 36.6 C 63 22 09/17/20 08:00 59 L 09/17/20 07:48 36.3 C L 69 18 09/17/20 04:35 36.5 C 62 18 09/17/20 00:45 66 09/17/20 00:25 36.7 C 71 18 09/16/20 22:37 36.6 C 67 20 09/16/20 22:01 09/16/20 21:30 101 H 15 09/16/20 21:23 36.6 C 69 22 09/16/20 21:01 66 18 162/66 H 09/16/20 21:00 67 23 09/16/20 20:33 65 16 09/16/20 20:30 65 20 159/65 H 09/16/20 20:00 68 17 09/16/20 19:30 63 22 137/62 09/16/20 19:00 63 18 129/67 09/16/20 18:30 63 19 135/63 09/16/20 18:00 65 27 H 143/54 H 09/16/20 17:30 62 16 123/57 L 09/16/20 17:00 63 19 120/59 L BP BP Pulse Ox Pulse Ox 09/17/20 16:25 138/57 L 93 09/17/20 16:15 136/62 94 09/17/20 16:05 101/53 L 92 09/17/20 15:55 100/53 L 95 09/17/20 15:45 127/53 L 95 09/17/20 14:26 147/57 H 96 09/17/20 11:50 169/78 H 98 09/17/20 08:00 09/17/20 07:48 177/83 H 94 09/17/20 04:35 158/73 H 96 09/17/20 00:45 09/17/20 00:25 145/65 H 96 09/16/20 22:37 97 09/16/20 22:01 131/50 L 09/16/20 21:30 09/16/20 21:23 143/121 H 97 09/16/20 21:01 97 09/16/20 21:00 94 09/16/20 20:33 159/65 H 97 97 09/16/20 20:30 97 09/16/20 20:00 96 09/16/20 19:30 96 09/16/20 19:00 97 09/16/20 18:30 96 09/16/20 18:00 96 09/16/20 17:30 96 09/16/20 17:00 97 Transfer of Care Handoff Completed per policy Notes Mental Status: alert / awake / arousable Patient Amnestic to Procedure: Yes Nausea / Vomiting: adequately controlled Pain: adequately controlled Airway Patency, RR, SpO2: stable & adequate BP & HR: stable & adequate Hydration State: stable & adequate Anesthetic Complications: no major complications apparent
--- NOTE | 2020-09-17 17:06 | Communication Note ---
Date of Service: September 17, 2020 The patient underwent ERCP this afternoon. We removed numerous gallstones from the common bile duct, a biliary stent was placed. Recommendation patient may have clear liquids Avoid nonsteroidals for 1 week Consider a general surgery consultation for cholecystectomy Repeat ERCP in 6 weeks
[2020-09-17] MEDS: ATORVASTATIN 40 MG TAB PO SCH (20:14)
[2020-09-17] MEDS: INSULIN GLARGINE SOLOSTAR 100 UNITS/ML 3 ML PEN SC SCH (20:14)
[2020-09-18] MEDS: INSULIN ASPART 100 UNITS/ML 3 ML PEN SC SCH ×4 (04:08→21:26)
[2020-09-18] MEDS: NORMOSOL-R 1,000 ML IV SCH ×2 (04:16→08:32)
[2020-09-18] MEDS: PIPERACILLIN/TAZOBACTAM 4.5 GM in DEXTROSE 5% 100 ML IV SCH ×3 (04:27→20:06)
[2020-09-18] MEDS: LEVOTHYROXINE SODIUM 137 MCG TABLET PO SCH (06:26)
[2020-09-18 06:46] LABS: Hematocrit (blood only) 38.5 % (37-47); Hemoglobin 12.7 g/dL (12.0-16.0); Mean Corpuscular Hemoglobin 29.8 pg (25-34); Mean Corpuscular Volume 90.4 fL (80-100); Mean Platelet Volume 10.9 fL (7.4-10.4); Platelet Count 240 K/uL (130-400); RDW Coefficient of Variation 14.1 % (11.5-14.5); RDW Standard Deviation 46.4 fL (36.4-46.3); Red Blood Count 4.26 M/uL (4.2-5.4); White Blood Count 11.32 K/uL (4.8-10.8)
[2020-09-18 07:26] LABS: Albumin Level 2.3 gm/dl (3.4-5.0); BUN Creatinine Ratio 17.1 (10-20); Bilirubin Direct 0.4 mg/dl (0-0.2); Bilirubin,Total 0.8 mg/dl (0.2-1); Calcium 8.2 mg/dl (8.5-10.1); Creatinine Clr Calc Pharmacy 31.4 ml/min; Est GFR (Non-African American) 27.6; Total Protein 5.4 gm/dl (6.4-8.2)
[2020-09-18] MEDS: ASPIRIN 81 MG ECTAB PO SCH (08:31)
[2020-09-18] MEDS: PANTOprazole 40 MG TAB PO SCH (08:31)
[2020-09-18] MEDS: ATENOLOL 50 MG TABLET PO SCH (08:31)
[2020-09-18] MEDS: FLUTICASONE/VILANTEROL 100/25MCG 14 PUFFS/INHALER INH SCH (08:31)
[2020-09-18] MEDS: amLODIPine BESYLATE 5 MG TAB PO SCH (08:31)
[2020-09-18] MEDS: INSULIN GLARGINE SOLOSTAR 100 UNITS/ML 3 ML PEN SC SCH ×2 (08:32→21:25)
--- NOTE | 2020-09-18 08:57 | Anesthesiology Progress Note ---
Date of Service September 18, 2020 Anesthesia Post Procedure Vital Signs Vital Signs: Temp Pulse Pulse Pulse Pulse Resp BP 09/18/20 07:34 36.4 C L 63 20 123/71 09/18/20 03:31 36.6 C 65 18 133/67 09/17/20 23:35 36.5 C 61 20 125/61 09/17/20 22:52 52 L 09/17/20 19:43 36.5 C 63 18 131/73 09/17/20 17:35 75 20 138/73 09/17/20 17:33 77 20 158/71 H 09/17/20 16:45 78 20 140/63 09/17/20 16:25 37 C 74 20 138/57 L 09/17/20 16:15 75 20 137/73 09/17/20 16:05 73 19 101/53 L 09/17/20 16:00 36.6 C 74 18 137/73 09/17/20 15:55 68 17 100/53 L 09/17/20 15:45 36.1 C L 69 16 127/53 L 09/17/20 14:26 36.6 C 70 70 18 147/57 H 09/17/20 11:50 36.6 C 63 22 169/78 H Pulse Ox 09/18/20 07:34 94 09/18/20 03:31 95 09/17/20 23:35 94 09/17/20 22:52 09/17/20 19:43 94 09/17/20 17:35 92 09/17/20 17:33 91 09/17/20 16:45 93 09/17/20 16:25 93 09/17/20 16:15 92 09/17/20 16:05 92 09/17/20 16:00 93 09/17/20 15:55 95 09/17/20 15:45 95 09/17/20 14:26 96 09/17/20 11:50 98 Notes Mental Status: alert / awake / arousable and participated in evaluation Patient Amnestic to Procedure: Yes Nausea / Vomiting: adequately controlled Pain: adequately controlled Airway Patency, RR, SpO2: stable & adequate BP & HR: stable & adequate Hydration State: stable & adequate Anesthetic Complications: no major complications apparent
[2020-09-18] MEDS: traMADol HCL 50 MG TABLET PO SCH (09:54)
[2020-09-18] MEDS ORDERED: INSULIN ASPART 100 UNITS/ML 3 ML PEN SC ONE (10:00)
[2020-09-18] MEDS ORDERED: POTASSIUM CHLORIDE PWD 20 MEQ PACK PO ONE (10:57)
--- NOTE | 2020-09-18 12:45 | Medical Student Progress Note ---
Date of Service September 18, 2020 Assessment & Plan (1) Hyperosmolar hyperglycemic state (HHS): Ms. Regalado is an 80yo female with PMHx of DMII, HTN, COPD, hypothyroidism, and CKD1 who presented to the ED 09/16 due to outpatient labs showing abnormal kidney function. In the ED she was found to have BUN 54, Cr. 2.4, glucose 772, trace beta hydroxybutyric acid, likely HHS. Pt reports never having HHS previously, but does endorse recent thirstiness, urinary frequency, urinary urgency, and recent decreased PO intake. U/A indicated possible UTI and CT A/P indicated possible choledocholithiasis and possible mild acute diverticulitis, so the source of underlying infection which likely prompted the HHS is unclear at this time, but likely UTI given Sx and ERCP. -Presenting glucose 772, most recently down to 98. A1c 15.2 and pt does not check sugars at home. -Volume resus and insulin drip in ED, Normosol yesterday currently PO fluids, insulin glargine and aspart -VBG pH 7.43, anion gap 6 -Pt thirst, urinary freq, and urinary urgency could be due to HHS and/or UTI, improved today -FEN: PO fluids, K 3.0 repleted with KCl 40mEq otherwise electrolytes WNL, clear liquid diet post-ERCP -DVT PPx: Lovenox -Code status: Full code -Disposition: Remain inpatient to monitor improved blood sugars and improving Sx, Abx awaiting UCx sensitivities, as well as monitoring for post-ERCP complications, likely discharge tomorrow. (2) Choledocholithiasis: -CT A/P showed cholelithiasis with hyperdense foci suggestive of choledocholithiasis resulting in mild extrahepatic biliary ductal dilation. -ERCP removed numerous stones in the common bile duct, placed one biliary stent. -Pt experiencing no pain, nontender on exam, anicteric sclera, no fevers, no AMS or hypotension. Likely cholelithiasis and choledocholithiasis without cholecystitis or cholangitis infection. -WBC 11.32 improving, AST 18, ALT 65, alk phos 133, Tbili 0.8 -Continue pip/tazo 120@30/hr IV for antibiotic coverage of infection with multiple possible sources including UTI and choledocholithiasis. Given Sx and ERCP, infection source causing HHS is likely the UTI rather than biliary infection. -CT A/P also found colonic wall thickening and stranding possibly relating to a mild acute diverticulitis involving hepatic flexure. GI recommends outpatient colonoscopy in a few weeks to evaluate. -Given ERCP results, repeat ERCP in six weeks recommended -Holding home ASA for one week post-ERCP -GI consulted, appreciate their recommendations (3) UTI (urinary tract infection): -As above, pt experiencing urinary urgency and frequency, although no dysuria. Could be due to HHS and/or UTI. Sx improved today -U/A showed 2+ glucose, +nitrite, +trace leuk est, 10-30 WBC, 2+ bacteria, but also 5-10 epithelial cells. Given HHS context and possible Sx, likely UTI present. -Continue pip/tazo 120@30/hr IV for antibiotic coverage of infection with multiple possible sources including UTI and choledocholithiasis. UCx preliminary growing gram - bacilli. Plan to switch to PO Abx for UTI once sensitivities arrive. -BCx 24 hrs no growth Hematuria presence: without hematuria Urinary tract infection type: acute cystitis Qualified Code(s): N30.00 - Acute cystitis without hematuria (4) Diabetes: -Hold home glimiperide. Continue insulin glargine and aspart while inpatient -Glucose 772 now down to 98 -A1c 15.2 indicates there is chronically high glucose which is poorly managed. Recommend pt work with PCP outpatient to optimize medication management. Will likely need home Lantus insulin as well as possibly other medication changes. -Pt open to checking blood sugars at home. We will have her talk with adaptive physical educator to help evaluate her diabetes. Chronic kidney disease stage: unspecified stage Diabetes mellitus complication status: with kidney complications Diabetes mellitus termite exterminator helper insulin use: without termite exterminator helper use Diabetes mellitus type: type 2 (5) Hypothyroidism: Continue home levothyroxine 137mcg, TSH 3.19 (6) Hypertension: -Continue home amlodipine and atenolol. Hold home chlorthalidone and losartan. -Cr today 1.72 down from 2.4 on admission, unclear Cr baseline Hypertension type: unspecified Qualified Code(s): I10 - Essential (primary) hypertension (7) COPD (chronic obstructive pulmonary disease): -Pt is a never smoker although PCP has diagnosed her with COPD. Continue fluticasone/vilanterol since pt takes fluticasone/salmeterol at home. CTAB on exam today. (8) Osteoarthritis: -Chronic knee pain on home tramadol. Continue tramadol (9) GERD (gastroesophageal reflux disease): -Continue home omeprazole 20 (10) Breast mass: -CT A/P found incidental 1.6cm right lateral breast lesion suspicious for mass and recommended nonemergent follow up. -Pt has not had a mammogram in many years. Recommend outpatient diagnostic mammogram to assess this lesion. Admission and Anticipated Discharge Date Admission Date: September 16, 2020 Supervising Attestation Attending Attestation I also saw the patient with the resident and medical student and confirmed buenrostro portions of the history and physical examination. Upon exam this morning, she is seated in the bedside chair. She has no complaints. She denies abdominal pain, nausea, or vomiting. Denies chest pain or shortness of breath. We did review the findings from yesterday's ERCP. We also reviewed the findings in the abdominal CT scan from admission -incidental findings although perhaps significant -that require outpatient follow-up. We also discussed her diabetes, including her marked elevation upon admission and her elevated A1c. She is reluctant to give herself insulin, as she repeatedly stated that she would rather use oral medications. We will have staff development educator meet with her as well. Exam 113/65, 66, 16, 36.8 C, 95% on room air Alert and oriented. No acute distress. Cardiovascular regular rate. 2/6 stock ejection murmur heard best at the left upper sternal border. Lungs are clear throughout. Abdomen is obese but soft and nontender. Laboratory data White cell count 11.32, this is down from 12.88 yesterday. Hemoglobin 12.7. BUN 29, creatinine 1.72. Creatinine is up from 1.64 yesterday. AST 18, ALT 65. Alkaline phosphatase 133. Microbiology A urine culture is growing gram-negative bacilli, speciation and sensitivities to follow Blood cultures are negative thus far. Imaging ERCP completed yesterday confirmed choledocholithiasis. Removal was accomplished and a stent was placed. A CT scan of the abdomen and pelvis taken upon admission shows cholelithiasis with a hyperdense foci within the common bile duct suggesting choledocholithiasis. There is also noted to be some focal wall thickening with very minimal pericolonic stranding at the hepatic flexure. Also incidental note is made of a 1.6 cm partially imaged nodule on the lateral right breast which is suspicious for a mass. Nonemergent mammographic work-up was recommended. Impression and Plan Hyperosmolar hyperglycemic state (HHS) Diabetes, uncontrolled nursing educator Discussed insulin with patient today Choledocholithiasis Status post successful ERCP and stent placement Outpatient follow-up with gastroenterology Questionable CT findings, colon at hepatic flexure No clinical history or exam findings to suggest colitis Remains on Zosyn Recommend outpatient colonoscopy Urinary tract infection Continue antibiotics pending speciation and sensitivity Suspicious right breast mass seen on CT Discussed with patient today Outpatient mammography Hypertension Hypothyroidism COPD Subjective Ms. Regalado states that she is feeling better today now that she has had her ERCP and her sugars are more controlled. The excessive thirst, urinary frequency, and urinary urgency that she had on admission have subsided, and she continues to have no pain anywhere except her chronic knee pain. Her decreased PO intake over the past few days has also subsided, and she is eating a clear liquid diet and drinking well. She did have some loose stools over the night, but she says it is tolerable. We discussed her likely need for an elective cholecystectomy, and she agreed she would speak to a surgeon outpatient but is not excited by the idea of surgery. She says she is surprised her A1c was so high and that she would be interested in checking her blood sugars at home and increase medications to help her sugars, but is hoping to avoid home insulin if possible. She is hoping to speak to case management about the possibility of social support such as meal support when she gets home. Review of Systems Review of Systems: All systems reviewed & are unremarkable except as noted in HPI & below Constitutional: no fever and no fatigue Respiratory: no cough and no dyspnea Cardiovascular: no chest pain, no dyspnea, no palpitations and no lightheadedness Gastrointestinal: + diarrhea/loose stools; no abdominal pain, no heartburn, no nausea, no vomiting, no dysphagia and no constipation Neurologic: no headache(s) and no confusion Physical Exam Constitutional: well developed, well nourished, + obese, cooperative and comfortable; no acute distress Eyes: PERRL, conjunctivae normal, anicteric sclerae ENMT: external ear and nose normal, oropharynx normal Respiratory: normal respiratory effort, lungs clear to auscultation Auscultation: no rales, no rhonchi and no wheezes Cardiovascular: RRR, no murmur, no edema Heart Sounds: normal S1 and normal S2; no gallop, no murmur and no cardiac rub Gastrointestinal (Abdomen): normal bowel sounds, soft, nontender, no hepatosplenomegaly Percussion/Palpation: abdomen nontender, no guarding and abdomen not rigid negative Allen's sign Skin: no rashes, warm and dry Neurologic: CN's II-XI intact bilaterally Psychiatric: A+Ox3, euthymic affect Results & Data ([facility]) Vital Signs (Past 12 Hours) Vital Signs Temp Pulse Resp BP Pulse Ox 09/18/20 11:47 36.4 C L 57 L 20 132/48 L 96 09/18/20 07:34 36.4 C L 63 20 123/71 94 09/18/20 03:31 36.6 C 65 18 133/67 95
--- NOTE | 2020-09-18 12:57 | Gastroenterology Progress Note ---
Date of Service September 18, 2020 Assessment & Plan (1) Choledocholithiasis: 80 y/o female with several co-morbidities including poorly controlled DM admit with hyperglycemia, ZUHAIR elevated LFTs and GI consulted for imaging suggestive of choledocholithiasis. She underwent ERCP yesterday notable for gallstones in the CBC which were removed and biliary stent was placed. She is being evaluated for possible cholecystectomy. Doing well today except for some loose stool. LFTs have trended down, total bilirubin and transaminases are WNL, ALP down to 133, leukocytosis is improving. Abd soft. - Pt can have diet as per primary/surgical service - Would recommend she avoid NSAIDs x 1 week - Please monitor and correct electrolytes (Potassium of 3.0) - If loose stools continue consider checking stool for C. diff, culture - She should have repeat ERCP in 6 weeks for stent removal; the importance of this was re-iterated to her and our office will call to arrange - GI will sign off, please call with questions Admission and Anticipated Discharge Date Admission Date: September 16, 2020 Supervising Physician Co-Signing Physician Notes Attending attestation I have seen, examined this patient, and agree with the findings and above by our mid-level provider Ms. Marzena Salgado, with the following additions: - Doing well post ERCP -stent removal in 6 wks - Surg consult - outpt colonoscopy Subjective Patient seen and examined, chart reviewed. Pt doing well overnight; this AM having a few bouts of nonbloody diarrhea. Feeling much better than when she came in. Tolerating breakfast. Denies n/v, abd pain, fever, chills, CP, SOB. Review of Systems Review of Systems: All systems reviewed & are unremarkable except as noted in HPI & below Physical Exam Constitutional: WD/WN, vitals as above Respiratory: normal respiratory effort, lungs clear to auscultation Cardiovascular: Rate/Rhythm: regular rate and regular rhythm Gastrointestinal (Abdomen): normal bowel sounds, soft, nontender, no hepa tosplenomegaly Skin: no rashes, warm and dry Psychiatric: A+Ox3, euthymic affect Results & Data ([facility]) Vital Signs (Past 12 Hours) Vital Signs Temp Pulse Resp BP Pulse Ox 09/18/20 11:47 36.4 C L 57 L 20 132/48 L 96 09/18/20 07:34 36.4 C L 63 20 123/71 94 09/18/20 03:31 36.6 C 65 18 133/67 95 Laboratory Results 09/18/20 09/18/20 09/18/20 Range/Units 11:43 07:33 06:23 WBC (4.8-10.8) K/uL RBC (4.2-5.4) M/uL Hgb (12.0-16.0) g/dL Hct (37-47) % MCV (80-100) fL MCH (25-34) pg MCHC (32-36) g/dL RDW Std Deviation (36.4-46.3) fL RDW Coeff of Roberto (11.5-14.5) % Plt Count (130-400) K/uL MPV (7.4-10.4) fL VBG pH (7.36-7.41) Sodium 141 (136-145) mmol/L Potassium 3.0 L D (3.5-5.1) mmol/L Chloride 106 (98-107) mmol/L Carbon Dioxide 29 (21-32) mmol/L Anion Gap 6.0 (3-11) BUN 29 H (7-18) mg/dl Creatinine 1.72 H (0.6-1.2) mg/dl Est Cr Clr Drug Dosing 31.4 ml/min Est GFR ( Amer) 32.0 Est GFR (Non-Af Amer) 27.6 BUN/Creatinine Ratio 17.1 (10-20) Glucose 98 (70-99) mg/dl POC Glucose 181 H 96 (70-99) mg/dl Calcium 8.2 L (8.5-10.1) mg/dl Phosphorus (2.5-4.9) mg/dl Magnesium (1.8-2.4) mg/dl Total Bilirubin 0.8 (0.2-1) mg/dl Direct Bilirubin 0.4 H (0-0.2) mg/dl AST 18 (15-37) U/L ALT 65 (12-78) U/L Alkaline Phosphatase 133 H (45-117) U/L Total Protein 5.4 L (6.4-8.2) gm/dl Albumin 2.3 L (3.4-5.0) gm/dl 09/18/20 09/18/2009/17/21 Range/Units 06:23 04:04 23:49 WBC 11.32 H (4.8-10.8) K/uL RBC 4.26 (4.2-5.4) M/uL Hgb 12.7 (12.0-16.0) g/dL Hct 38.5 (37-47) % MCV 90.4 (80-100) fL MCH 29.8 (25-34) pg MCHC 33.0 (32-36) g/dL RDW Std Deviation 46.4 H (36.4-46.3) fL RDW Coeff of Roberto 14.1 (11.5-14.5) % Plt Count 240 (130-400) K/uL MPV 10.9 H (7.4-10.4) fL VBG pH (7.36-7.41) Sodium (136-145) mmol/L Potassium (3.5-5.1) mmol/L Chloride (98-107) mmol/L Carbon Dioxide (21-32) mmol/L Anion Gap (3-11) BUN (7-18) mg/dl Creatinine (0.6-1.2) mg/dl Est Cr Clr Drug Dosing ml/min Est GFR ( Amer) Est GFR (Non-Af Amer) BUN/Creatinine Ratio (10-20) Glucose (70-99) mg/dl POC Glucose 101 H 155 H (70-99) mg/dl Calcium (8.5-10.1) mg/dl Phosphorus (2.5-4.9) mg/dl Magnesium (1.8-2.4) mg/dl Total Bilirubin (0.2-1) mg/dl Direct Bilirubin (0-0.2) mg/dl AST (15-37) U/L ALT (12-78) U/L Alkaline Phosphatase (45-117) U/L Total Protein (6.4-8.2) gm/dl Albumin (3.4-5.0) gm/dl 09/17/20 09/17/20 09/17/20 Range/Units 20:05 15:54 12:28 WBC (4.8-10.8) K/uL RBC (4.2-5.4) M/uL Hgb (12.0-16.0) g/dL Hct (37-47) % MCV (80-100) fL MCH (25-34) pg MCHC (32-36) g/dL RDW Std Deviation (36.4-46.3) fL RDW Coeff of Roberto (11.5-14.5) % Plt Count (130-400) K/uL MPV (7.4-10.4) fL VBG pH 7.43 H (7.36-7.41) Sodium (136-145) mmol/L Potassium (3.5-5.1) mmol/L Chloride (98-107) mmol/L Carbon Dioxide (21-32) mmol/L Anion Gap (3-11) BUN (7-18) mg/dl Creatinine (0.6-1.2) mg/dl Est Cr Clr Drug Dosing ml/min Est GFR ( Amer) Est GFR (Non-Af Amer) BUN/Creatinine Ratio (10-20) Glucose (70-99) mg/dl POC Glucose 220 H 159 H (70-99) mg/dl Calcium (8.5-10.1) mg/dl Phosphorus (2.5-4.9) mg/dl Magnesium (1.8-2.4) mg/dl Total Bilirubin (0.2-1) mg/dl Direct Bilirubin (0-0.2) mg/dl AST (15-37) U/L ALT (12-78) U/L Alkaline Phosphatase (45-117) U/L Total Protein (6.4-8.2) gm/dl Albumin (3.4-5.0) gm/dl 09/17/20 Range/Units 12:28 WBC (4.8-10.8) K/uL RBC (4.2-5.4) M/uL Hgb (12.0-16.0) g/dL Hct (37-47) % MCV (80-100) fL MCH (25-34) pg MCHC (32-36) g/dL RDW Std Deviation (36.4-46.3) fL RDW Coeff of Roberto (11.5-14.5) % Plt Count (130-400) K/uL MPV (7.4-10.4) fL VBG pH (7.36-7.41) Sodium 139 (136-145) mmol/L Potassium 3.7 (3.5-5.1) mmol/L Chloride 104 (98-107) mmol/L Carbon Dioxide 27 (21-32) mmol/L Anion Gap 8.0 (3-11) BUN 35 H (7-18) mg/dl Creatinine 1.64 H (0.6-1.2) mg/dl Est Cr Clr Drug Dosing 32.6 ml/min Est GFR ( Amer) 33.9 Est GFR (Non-Af Amer) 29.2 BUN/Creatinine Ratio 21.5 H (10-20) Glucose 146 H (70-99) mg/dl POC Glucose (70-99) mg/dl Calcium 8.7 (8.5-10.1) mg/dl Phosphorus 2.5 (2.5-4.9) mg/dl Magnesium 2.2 (1.8-2.4) mg/dl Total Bilirubin (0.2-1) mg/dl Direct Bilirubin (0-0.2) mg/dl AST (15-37) U/L ALT (12-78) U/L Alkaline Phosphatase (45-117) U/L Total Protein (6.4-8.2) gm/dl Albumin (3.4-5.0) gm/dl Diagnostic Findings ERCP: - The major papilla was located partially within a diverticulum. - Choledocholithiasis was found. Removal was accomplished with biliary sphincterotomy and balloon extraction; a stent was inserted. - One biliary stent was placed into the common bile duct. - Indomethacin given to decrease risk of post-ERCP pancreatitis. Recommendation: - Avoid aspirin and nonsteroidal anti-inflammatory medicines for 1 week. - Clear liquid diet today. - Refer to a surgeon. - Repeat ERCP in 6 weeks to remove stent.
[2020-09-18] MEDS: ATORVASTATIN 40 MG TAB PO SCH (20:17)
[2020-09-18] MEDS ORDERED: ENOXAPARIN INJ 40 MG/0.4 ML SYR SQ SCH (21:00)
[2020-09-19] MEDS: PIPERACILLIN/TAZOBACTAM 4.5 GM in DEXTROSE 5% 100 ML IV SCH ×2 (04:06→13:22)
[2020-09-19] MEDS: LEVOTHYROXINE SODIUM 137 MCG TABLET PO SCH (05:53)
[2020-09-19 07:39] LABS: Hemoglobin 12.4 g/dL (12.0-16.0); Mean Corpuscular Hemoglobin 29.8 pg (25-34); Mean Corpuscular Hgb Conc 32.6 g/dL (32-36); Mean Corpuscular Volume 91.3 fL (80-100); Mean Platelet Volume 10.7 fL (7.4-10.4); Platelet Count 238 K/uL (130-400); RDW Coefficient of Variation 14.2 % (11.5-14.5); RDW Standard Deviation 47.3 fL (36.4-46.3); Red Blood Count 4.16 M/uL (4.2-5.4); White Blood Count 9.78 K/uL (4.8-10.8)
[2020-09-19 08:18] LABS: Albumin Level 2.3 gm/dl (3.4-5.0); BUN Creatinine Ratio 16.3 (10-20); Bilirubin Direct 0.3 mg/dl (0-0.2); Bilirubin,Total 0.9 mg/dl (0.2-1); Creatinine Clr Calc Pharmacy 29.2 ml/min; Est GFR (African American) 29.3; Est GFR (Non-African American) 25.3; Phosphorus 2.7 mg/dl (2.5-4.9); Potassium 3.5 mmol/L (3.5-5.1); Total Protein 5.4 gm/dl (6.4-8.2)
[2020-09-19] MEDS: amLODIPine BESYLATE 5 MG TAB PO SCH (08:33)
[2020-09-19] MEDS: PANTOprazole 40 MG TAB PO SCH (08:34)
[2020-09-19] MEDS: ATENOLOL 50 MG TABLET PO SCH (08:34)
[2020-09-19] MEDS: FLUTICASONE/VILANTEROL 100/25MCG 14 PUFFS/INHALER INH SCH (08:35)
[2020-09-19] MEDS: traMADol HCL 50 MG TABLET PO SCH (08:36)
[2020-09-19] MEDS: INSULIN GLARGINE SOLOSTAR 100 UNITS/ML 3 ML PEN SC SCH (08:37)
[2020-09-19] MEDS: INSULIN ASPART 100 UNITS/ML 3 ML PEN SC SCH ×2 (08:38→12:53)
--- NOTE | 2020-09-19 10:55 | Pharmacy Report ---
Pharmacy Glycemic Short Note 2 - Date of Service September 19, 2020 - Glycemic Short BSG Results (Last 24 hours): 09/18/20 09/18/20 09/18/20 11:43 17:07 20:37 Glucose POC Glucose 181 H 93 127 H 09/19/20 07:19 Glucose 140 H POC Glucose OUTPATIENT ANTIDIABETIC REGIMEN: * Glimepiride 1 mg PO daily * HbA1c = 15.2% (09/16/20) ASSESSMENT: 09/19: * Received a total of 76 units of insulin yesterday * 40 units basal + 36 units bolus * BSGs were acceptable: [id number] mg/dL * No fasting BSG was checked this morning * Her random BSG on BMP was 140 mg/dL * No change in Lantus * No change in Novolog 09/17: * 80 yo F admitted secondary to HHS. Pharmacy was consulted for assistance with inpatient glycemic management. * Initial BSG was 772 mg/dL. On this BMP: Na 128, K 4.5, CO2 26, Anion Gap 8.0, BUN 54, SCr 2.46, beta-OH 3.41. No ketones in urine. * Patient was given a 10 unit IV insulin bolus followed by an insulin drip starting at 9.9 units/hr. * BSG trends last night were: [phone] mg/dL * Insulin drip rates decreased steadily throughout the afternoon: 9.9 u/hr --> 5.9 u/hr --> 4.7 u/hr --> shut off for 1 hour --> 2 u/hr * 20 units of Lantus were given last evening * This morning, patient's BMP was: Na 139, K 3.7, CO2 27, Anion Gap 8.0, BUN 35, SCr 1.64, Glu 146 * BSG trends this morning were: [phone] mg/dL * 25 units of Lantus were given this morning as well based on overnight drip rates * Insulin drip ran at 2.4 u/hr all morning until BSG was 148 mg/dL. At this time, drip was decreased 1.9 u/hr. The next BSG had decreased to 131 mg/dL so decision was made to discontinue insulin gtt. * Patient is NPO and is currently undergoing an ERCP. Expect a diet to be ordered afterwards. * Will add a Lantus scale for this evening in the event patient is still NPO * Continue with q4h accuchecks at CF 15 and CR 5 PLAN FOR INPATIENT GLYCEMIC CONTROL: * Hold outpatient oral diabetes medications * Basal insulin * Lantus 25 units SQ AM * Lantus 20-30 units SQ PM (see eMAR for more details) * Bolus insulin * NovoLog per scale ACHS or Q6hrs while NPO * Goal Range: Low 110 mg/dL - High 140 mg/dL * Correction Factor: 15 mg/dL/unit * Nutritional / Prandial insulin per carb ratio of 1 unit per 5 grams CHO consumed PLAN FOR DISCHARGE: * HbA1c = 15.2% which is well above her goal A1c of less than 8%. * Recommend added once daily Lantus 40 units SQ every morning upon discharge. * She should SMBG at least 2 times per day * She should report any persistent highs/lows to her PCP. * Given patient's renal fxn and Glimepiride having an active metabolite, could consider switching to glipizide 2.5-5 mg PO daily to start and titrate upwards. * Could also defer this decision to PCP
--- NOTE | 2020-09-19 15:10 | Med Student Discharge Summary ---
Date of Service September 19, 2020 Admission HPI Per Admitting Provider Reportedly the patient was sent to our emergency department due to outpatient laboratory showing abnormal kidney function. Patient is a known diabetic and also takes both diuretics and ARB medications. In the emergency department she was found to have a BUN/creatinine of 54 and 2.4 respectively with a glucose of 772. She likewise has a leukocytosis and a nitrate positive leukocyte esterase trace positive urine analysis with concern for urinary tract infection present on admission and likely HHS/DKA as she does have trace elevation of beta hydroxybutyric acid. Symptoms the patient is known as an outpatient have been fatigue and decreased appetite over the last 2 weeks. Of note the patient has received 2 code vaccines Admission Exam (Per Admitting) Constitutional well developed, well nourished, + obese, cooperative and comfortable; no acute distress Eyes PERRL, conjunctivae normal, anicteric sclerae ENMT external ear and nose normal, oropharynx normal Respiratory normal respiratory effort, lungs clear to auscultation Auscultation: no rales, no rhonchi and no wheezes Cardiovascular RRR, no murmur, no edema Heart Sounds: normal S1 and normal S2; no gallop, no murmur and no cardiac rub Gastrointestinal (Abdomen) normal bowel sounds, soft, nontender, no hepatosplenomegaly Percussion/Palpation: abdomen nontender, no guarding, abdomen not rigid and no hepatomegaly Skin no rashes, warm and dry Neurologic CN's II-XI intact bilaterally Psychiatric A+Ox3, euthymic affect Eye Contact: good eye contact Discharge Data Consultations 09/16/20 20:30 Consult Gastroenterology Routine Procedures Performed Operation Date: 09/17/20 07:50 Actual Procedures p Endoscopic Retrograde Cholangiopancreatogram(Not Applicable) - Rosa Chan DO Diabetes Follow Up Diabetes Follow Up: Diabetes Follow-up Needed for HgbA1c >9% Hospital Course (1) Hyperosmolar hyperglycemic state (HHS): Ms. Regalado is an 80yo female with PMHx of DMII, HTN, COPD, hypothyroidism, and CKD1 who presented to the ED 09/16 due to outpatient labs showing abnormal kidney function. In the ED she was found to have BUN 54, Cr. 2.4, glucose 772, trace beta hydroxybutyric acid, likely HHS. Pt reports never having HHS prev iously, but does endorse recent thirstiness, urinary frequency, urinary urgency, and recent decreased PO intake. U/A indicated possible UTI and CT A/P indicated possible choledocholithiasis and possible mild acute diverticulitis, so the source of underlying infection which likely prompted the HHS is unclear at this time, but likely UTI given Sx and ERCP. -Presenting glucose 772, improved to WNL. A1c 15.2 and pt does not check sugars at home. -Volume resus and insulin drip in ED, Normosol initially currently PO fluids, insulin glargine and aspart -VBG pH 7.43, anion gap 5 -Pt thirst, urinary freq, and urinary urgency could be due to HHS and/or UTI, resolved (2) Choledocholithiasis: -CT A/P showed cholelithiasis with hyperdense foci suggestive of choledocholithiasis resulting in mild extrahepatic biliary ductal dilation. -ERCP removed numerous stones in the common bile duct, placed one biliary stent. -Pt experiencing no pain, nontender on exam, anicteric sclera, no fevers, no AMS or hypotension. Likely cholelithiasis and choledocholithiasis without cholecystitis or cholangitis infection. -WBC 9.78 WNL, alk phos 121, Tbili 0.3 -Initially on pip/tazo 120@30/hr IV for antibiotic coverage of infection with multiple possible sources including UTI and choledocholithiasis. Given Sx and ERCP, infection source causing HHS is likely the UTI rather than biliary infection. Upon discharge transitioned to PO Augmentin 500/125 for five days of additional coverage -CT A/P also found colonic wall thickening and stranding possibly relating to a mild acute diverticulitis involving hepatic flexure. GI recommends outpatient colonoscopy in a few weeks to evaluate. -Given ERCP results, repeat ERCP in six weeks recommended -Holding home ASA for one week post-ERCP, then continue home ASA (3) UTI (urinary tract infection): -As above, pt experienced urinary urgency and frequency, although no dysuria. Could be due to HHS and/or UTI. Sx resolved -U/A showed 2+ glucose, +nitrite, +trace leuk est, 10-30 WBC, 2+ bacteria, but also 5-10 epithelial cells. Given HHS context and possible Sx, likely UTI pre sent. -Initially on pip/tazo 120@30/hr IV for antibiotic coverage of infection with multiple possible sources including UTI and choledocholithiasis. UCx preliminary grew pansensitive E coli. Upon discharge transitioned to PO Augmentin for five days of additional coverage (4) Diabetes: -A1c 15.2 indicates there is chronically high glucose which is poorly m anaged. -Pt spoke with assistant health educator and pt taught how to administer insulin and check blood sugars. After some discussion about minimizing cost, pt prefers to start Novolin N 20mg BID insulin regimen. Pt should also check blood sugars at home twice daily. -Recommend pt work with PCP outpatient to optimize medication management. Continue home glimepiride, but pt may benefit from an outpatient switch to glipizide to decrease hypoglycemia potential. Pt may benefit from other medication changes as well E11.9 - Type 2 diabetes mellitus without complications (5) Hypothyroidism: Continue home levothyroxine 137mcg, TSH 3.19 (6) Hypertension: -Continue home BP medications -Cr today 1.85 down from 2.4 on admission, unclear Cr baseline (7) COPD (chronic obstructive pulmonary disease): -Pt is a never smoker although PCP has diagnosed her with COPD. Continue h ome fluticasone/salmeterol -CTAB on exam (8) Osteoarthritis: -Chronic knee pain, continue tramadol (9) GERD (gastroesophageal reflux disease): -Continue home omeprazole 20 (10) Breast mass: -CT A/P found incidental 1.6cm right lateral breast lesion suspicious for mass and recommended nonemergent follow up. -Pt has not had a mammogram in many years. Recommend outpatient diagnostic mammogram to assess this lesion. Discharge Plan Discharge Items Patient Disposition: Home - Home Health Services Reason For Visit: ABNORMAL KIDNEY FUNCTION LEVEL Discharge Diagnosis: hyperosmolar hyperglycemic state. urinary tract infection Activity: Per Instructions section Non-emergency contact: Primary Care Provider Call non-emergency contact if: you have any medication questions, your pain is not controlled and you have a fever Follow-up/Referrals: Estrella Altamirano PA-C [Primary Care Provider] - 09/25/20 10:00 am Diet: Carb Consistent or DM2 Addtl Attending Provider Instructions: Hi Ms. Regalado, -You came to the hospital with thirst, urinary frequency, urinary urgency, and high kidney numbers. You were also found to have a high blood sugar at 772, which was likely due to a combination of generally high blood sugars and infection. With fluid and insulin, we were able to get your sugars down to about 100, which helped with your symptoms -for the infectiona urinary tract infection (ecoli that is sensitive to all antibiotics) and also perhaps a gallbladder or bowel infectionwe had been giving you IV antibiotics. We switch to antibiotics by mouth and you should take one pill of Augmentin tonight and then twice a day for the next five days to help clear the infection. -for the underlying diabetes, your HbA1c was found to be 15.2, meaning your sugars have likely been high for several months. We are adding home insulin to help keep your blood sugars lower. For now, also continue your home medicine glimepiride, although we recommend you see your primary care doctor early next week to see if that medication can be switched to a similar medication glipizide and if other diabetes medications may be needed too. We recommend you also check your blood sugars 2-3 times daily at home, with one of them before meals. new prescriptions: 1. Novolin-N Flexpen. Sent to [facility] in [place] 2. Insulin pen needles 5/32 (4mm) x 32 G. 3. OneTouch Verio Test Strips 4. OneTouch Delica lancets 33G 5. Augmentin (reduced dose) 500-125 mg. Take 1 tab the evening of 09/19/20. Take 1 tab twice a day from 09/20/20-08/27/30. Follow up with your PCP Estrella Altamirano. An appointment has been made for you for 09/25/20 at 1000AM. -With the gallstones removed with the ERCP procedure, you are recommended to get a repeat ERCP procedure in six weeks. For the possible bowel infection we are treating, you are recommended to get a colonoscopy in the next few months as well. We also recommend you take to a general surgeon about potentially getting your gallbladder out. -we recommend you not take your home aspirin 81mg for the next five days since you had a recent ERCP procedure, and then continue the aspirin after that -a small right breast lump was also found on CT scan, and we recommend you get a mammogram to check up on that. If you develop any new or worsening symptoms including fever, chills, sweats, chest pain, chest pressure, difficulty breathing, uncontrolled nausea/vomiting, rash, wheezing, passing out or nearly passing out, bleeding, black/bloody bowel movements, or other new or concerning symptoms please call your primary care physician, or call 911 for re-evaluation in the emergency department if you are very concerned. Pending Studies at Discharge: No Stand-Alone Forms: My [facility] Medications and DC Order Prescriptions: New amoxicillin-pot clavulanate [Augmentin] 500-125 mg tablet 1 tab PO BID Qty: 11 RF: 0 Novolin N Flexpen 100 unit/mL (3 mL) insulin pen 20 unit subcut BID 30 Days Qty: 12 RF: 1 (DME) OneTouch Verio test strips Strip See Rx Instructions .ROUTE .MEDSUPPLY Qty: 100 RF: 1 (DME) lancets [OneTouch Delica Lancets] 33 gauge misc See Rx Instructions .ROUTE .MEDSUPPLY Qty: 100 RF: 1 Continued levothyroxine 137 mcg Tablet 137 mcg PO DAILY RF: 0 atenolol 100 mg Tablet 100 mg PO DAILY RF: 0 tramadol 50 mg Tablet 50 mg PO BID RF: 0 glimepiride 1 mg Tablet 1 mg PO DAILY RF: 0 amlodipine 10 mg Tablet 10 mg PO DAILY RF: 0 omeprazole 20 mg Capsule,Delayed Release(Dr/Ec) 20 mg PO DAILY RF: 0 losartan 100 mg Tablet 100 mg PO DAILY RF: 0 atorvastatin 40 mg Tablet 40 mg PO PM RF: 0 fluticasone propion-salmeterol 250-50 mcg/dose Blister With Device 1 inh INHALATION BID RF: 0 chlorthalidone 25 mg Tablet 25 mg PO DAILY RF: 0 aspirin 81 mg Tablet 81 mg PO DAILY RF: 0 Discharge Orders: Discharge Order (Routine); Ordered 09/19/20 Ordered By: Mateo Gould/Other Patient Handouts: Long-Term Complications of Diabetes, Managing Type 2 Diabetes, Insulin How to Use and Where to Inject, Types of Insulin, Healthy Meals for Diabetes, Managing Diabetes: The A1C Test, Blood Sugar Monitoring and ..., Amoxicillin Clavulanic Acid tablets Admission Data Admit Date/Time: 09/16/20 13:56 Attending Provider: Jonathan Armstrong Admit Provider: Nikhil Mckeon Primary Care Provider: Estrella Altamirano Other Providers: Karl Rhodesdarlene ; Rosa Chan Other Interventions: Discharge Summary Assessment (RN) Last Done: 09/19/20 16:02 Supervising Attestation Patient seen and examined with the medical student and PGY-1 Dr. Angela. Agree with history, exam findings, assessment and plan of care as outlined. In brief, Karina is an 80 year old female with hx of DM, HTN, COPD, hypothyroid and CKD admitted with ZUHAIR and HHS. She is doing well today. Has met with the critical care educator and feels comforta ble with insulin at home. She is concerned about the cost of the medications. Vital signs and nursing notes reviewed. Well appearing. Moist mucus membranes. Heart with regular rate and rhythm. Lungs clear to auscultation. No wheezes or rales. Abdomen is soft, non-tender. 1. HHS. Glucose is better controlled now. Basal bolus insulin while inpatient. A1C 15.2. Appreciate glycemic consult. Discharge home on Novalin 20U BID. 2. Choledocholithiasis. s/p ERCP to remove stone and placement of biliary stent. Received zosyn in the hospital. Will be discharged with Augmentin. Will need repeat ERCP in 6 weeks. Ok to restart ASA in [address] with mild colonic wall thickening and stranding in the hepatic flexure. Colonoscopy as an outpatient. Discharge home with Augmentin. 4. Urinary tract infection. Urine culture with roach-sensitive E. Coli. Was on zosyn during hospital stay. Will be discharged on Augmentin. 5. Hypothyroid. TSH at goal. Continue home synthroid. 6. HTN. Blood pressures at goal. Continue home amlodipine and atenolol. Holding home thiazide. Can restart when Cr is closer to baseline. 7. Breast mass. Incidental finding in the right lateral breast on CT Abd/Pelvis. Will need diagnostic mammo as an outpatient. Dispo: discharge home today. I personally spent 40 minutes discharge planning for this patient.
== END 2020-09-19 16:44 | disposition home health service (06) | DRG 444 ==
LOC: ED 10:02 → SUATTDRO 13:56 → EDINP 13:56 → 2S 20:05 → 3N 09-18 13:00

== ENCOUNTER 2024-05-11 16:15 | Inpatient (IN) ==
--- NOTE | 2024-05-11 18:43 | Emergency Department Note ---
Impression & Plan Osteoarthritis ADMIT ED Provider Note HPI: History obtained from patient. The patient is a 83-year-old female who presents the emergency department with chief complaint of acute on chronic pain in her right knee. Patient denies any recent history of trauma. Patient states she has had chronic pain in the right knee but over the past week it seems to be getting acutely worse. Patient was unable to ambulate today at home and she was unable to even pivot according to her daughter at the bedside. On arrival here to the ED otherwise the patient appears to be in no acute distress, she does complain of some pain in her right knee at rest. ROS: - Per HPI Differential Diagnosis: Osteoarthritis, pathologic fracture of the right knee, dislocation of the right knee, patellar dislocation, gout, septic arthritis, amongst other potential pathologies. *Outpatient medications and allergy history reviewed. PE: General: Alert HEENT: Normocephalic, trachea midline Eyes: Extraocular eye movement is intact, no scleral erythema Pulmonary: Clear to auscultation bilaterally, no wheezing Cardio: Regular rate and rhythm GI: Abdomen is soft to palpation : No suprapubic tenderness MSK: No evidence of trauma or malformation of the extremities, bilateral lower extremity edema, there is no erythema overlying the right knee, range of motion is limited secondary to pain in the right knee Skin: No evidence of rash Neuro: Alert, no focal deficits Psychiatric: Cooperative INDEPENDENT INTERPRETATIONS: tourist information officer: (As interpreted by myself): - An order was placed for continuous cardiac monitoring - Patient was noted to be in sinus rhythm with a rate of 70 Interventions provided in ED: -IV morphine, IV Zofran Medical Decision Making: IV was established and lab work obtained, patient was placed on spring coiler hand. Lab work shows a mild leukocytosis, hemoglobin is normal, platelet count is normal. CMP does not show any critical findings. Urinalysis does not show any evidence of infection. X-ray imaging of the right knee shows evidence of severe osteoarthritis. No evidence of acute fracture. I suspect this is the source of the patient's ambulatory dysfunction and pain. There is no overlying erythema on exam to suggest a septic arthritis or infection. Patient's daughter at the bedside states that she does not feel that the patient to be discharged safely, patient is also requesting admission for physical therapy and possible placement at a facility if determined appropriate. Given the degree of osteoarthritis on x-ray imaging and the degree of pain I will also add on CT imaging of the knee for further diagnostic management. Given the patient's ambulatory dysfunction, discussed her presentation with the on-call hospitalist, Dr. Perez, and the patient was placed for admission in stable condition for further management. Consultants/Discussions held with other healthcare providers: -Hospitalist, Dr. Perez Disposition discussion held by myself with: -Patient and patient's daughter Diagnosis: 1. Right knee pain, acute on chronic 2. Osteoarthritis of the right knee, severe 3. Ambulatory dysfunction, acute Disposition: Admission Getachew Mars DO Emergency Medicine Past Med/Surg History Problem List Right knee pain Insulin dependent type 2 diabetes mellitus Diabetes mellitus type 2, uncontrolled Breast mass (Acute) Encounter for pre-operative examination Acute renal failure (Acute) Hyperglycemia (Acute) Acute UTI (urinary tract infection) (Acute) Elevated LFTs (Acute) Choledocholithiasis (Acute) Osteoarthritis (Acute) COPD (chronic obstructive pulmonary disease) DVT prophylaxis UTI (urinary tract infection) Hyperosmolar hyperglycemic state (HHS) GERD (gastroesophageal reflux disease) Diabetes Hypothyroidism Hypertension Family History Brother Cancer Other Diabetes Social History Smoking Status: Never smoker Do You Dip or Chew Tobacco: No; Hx Alcohol Use: No Hx Substance Use: No Preferred Language: Slovak Communication Ability: Effective Lubricating Specialist Required: No Beliefs That Will Affect Care: None Current Living Situation: Alone Feels Safe at Home: Yes Assistive Devices: Walker Allergies Allergies Allergy/AdvReac Type Severity Reaction Status Date / Time prednisone Allergy Difficulty Verified 05/11/24 20:18 Breathing ibuprofen AdvReac Unknown Unverified 09/16/20 10:46 Home Meds Home Medications Medication Instructions Recorded Confirmed amlodipine 10 mg tablet 10 mg PO QAM 09/16/20 05/11/24 atenolol 100 mg tablet 100 mg PO QAM 09/16/20 05/11/24 atorvastatin 40 mg tablet 40 mg PO PM 09/16/20 05/11/24 chlorthalidone 25 mg tablet 25 mg PO QAM 09/16/20 05/11/24 glimepiride 1 mg tablet 1 mg PO QAM 09/16/20 05/11/24 levothyroxine 137 mcg tablet 137 mcg PO DAILYBB 09/16/20 05/11/24 losartan 100 mg tablet 100 mg PO QAM 09/16/20 05/11/24 omeprazole 20 mg capsule,delayed 20 mg PO QAM 09/16/20 05/11/24 release tramadol 50 mg tablet 50 mg PO Q12 PRN Pain 09/16/20 05/11/24 aspirin 81 mg tablet,delayed 81 mg PO QAM 05/11/24 05/11/24 release Previous Rx's Medication Instructions Recorded pen needle, diabetic 32 gauge x #50 ea 09/21/20 5" pen needle, diabetic 32 gauge x #100 ea 09/21/20" blood sugar diagnostic (OneTouch #100 ea 09/22/20 Verio test strips) lancets 33 gauge (OneTouch Delica #100 ea 09/22/20 Lancets) Results & Data (ED) Vital Signs Vital Signs - 24 hr 05/11/24 16:36 05/11/24 17:49 05/11/24 19:06 Temperature 36.9 C Temperature Source Temporal Artery Scan Pulse Rate 65 Pulse Rate [Right Finger] 67 75 Pulse Rhythm [Right Finger] Regular Pulse Strength [Right Finger] Normal Respiratory Rate 14 18 18 Respiratory Effort / Characteristics Non-Labored Spontaneous Non-Labored Spontaneous Respiratory Depth Normal Normal Normal Respiratory Pattern Regular Blood Pressure 170/73 H Blood Pressure [Right Arm] 186/77 H 169/83 H Blood Pressure Mean 105 Blood Pressure Mean [Right Arm] 113 111 Blood Pressure Position [Right Arm] Lying Pulse Oximetry 94 98 95 Oxygen Delivery Method Room Air Room Air Room Air Oxygen Flow Rate Sepsis Recent Fever Within 48 Hours No Sepsis New/Unexplained Change in Mental Status No Sepsis Action Taken by Nursing No Action Required 05/11/24 19:33 05/11/24 21:00 Temperature Temperature Source Pulse Rate Pulse Rate [Right Finger] 68 Pulse Rhythm [Right Finger] Pulse Strength [Right Finger] Respiratory Rate 16 Respiratory Effort / Characteristics Respiratory Depth Normal Respiratory Pattern Blood Pressure Blood Pressure [Right Arm] Blood Pressure Mean Blood Pressure Mean [Right Arm] Blood Pressure Position [Right Arm] Pulse Oximetry 96 98 Oxygen Delivery Method Room Air Nasal Cannula Oxygen Flow Rate 2 Sepsis Recent Fever Within 48 Hours Sepsis New/Unexplained Change in Mental Status Sepsis Action Taken by Nursing Laboratory Data 05/11/24 20:04 05/11/24 20:04 Lab Results 05/11/24 05/11/24 Range/Units 20:04 21:09 WBC 12.18 H (4.8-10.8) K/ul RBC 4.96 (4.20-5.40) M/uL Hgb 14.5 (12.0-16.0) g/dl Hct 44.5 (37.0-47.0) % MCV 89.7 (80.0-100.0) fL MCH 29.2 (25.0-34.0) pg MCHC 32.6 (32.0-36.0) g/dL RDW Std Deviation 45.8 (36.4-46.3) fL RDW Coeff of Roberto 14.1 (11.5-14.5) % Plt Count 269 (130-400) K/uL MPV 9.9 (9.4-12.4) fL Immature Gran % (Auto) 0.7 % Neut % (Auto) 71.0 % Lymph % (Auto) 16.2 % [place] % (Auto) 9.0 % Eos % (Auto) 2.8 % Baso % (Auto) 0.3 % Neut # (Auto) 8.65 H (1.40-6.50) K/uL Lymph # (Auto) 1.97 (1.20-3.40) K/uL [place] # (Auto) 1.10 H (0.11-0.59) K/uL Eos # (Auto) 0.34 (0.00-0.50) K/uL Baso # (Auto) 0.04 (0.00-0.20) K/uL Immature Gran # (Auto) 0.08 (0.01-0.20) K/uL Sodium 139 (136-145) mmol/L Potassium 4.2 (3.5-5.1) mmol/L Chloride 102 (98-107) mmol/L Carbon Dioxide 29 (21-32) mmol/L Anion Gap 8 (3-11) BUN 28 H (6-23) mg/dl Creatinine 1.48 H (0.6-1.2) mg/dl Est Cr Clr Drug Dosing 35.4 ml/min eGFR 34.92 BUN/Creatinine Ratio 18.9 (10-20) Glucose 125 H (70-99(Fasting)) mg/dl Calcium 9.7 (8.6-10.3) mg/dl Total Bilirubin 0.6 (0.2-1.0) mg/dl AST 23 (13-39) U/L ALT 16 (7-52) U/L Alkaline Phosphatase 157 H (34-104) U/L Total Protein 6.6 (6.0-8.3) gm/dl Albumin 3.9 (3.4-5.0) gm/dl Globulin 2.7 (2.5-4.0) gm/dl Albumin/Globulin Ratio 1.4 (0.9-2) Urine Color Yellow Urine Appearance Clear (Clear) Urine pH 7.0 (4.5-7.5) Ur Specific [place] 1.009 (1.000-1.030) Urine Protein 2+ H (Negative) Urine Glucose (UA) Negative (Negative) Urine Ketones Negative (Negative) Urine Blood Negative (Negative) Urine Nitrite Negative (Negative) Urine Bilirubin Negative (Negative) Urine Urobilinogen Negative (Negative) Ur Leukocyte Esterase Negative (Negative) Urine WBC (Auto) 0-5 (0-5) /hpf Urine RBC (Auto) 0-2 (0-2) /hpf U Hyaline Cast (Auto) 0-2 (0-2) /lpf U Epithel Cells (Auto) 0-2 (0-2) /hpf Urine Bacteria (Auto) None Seen (None Seen) Administered Medications Discontinued Medications Morphine Sulfate (Morphine Sulfate 4 Mg/Ml 1 Ml Carp\\Vial) 4 mg IV NOW STA Stop: 05/11/24 20:09 Last Admin: 05/11/24 20:20 Dose: 4 mg Documented By: Ondansetron HCl (Ondansetron Inj 2 Mg/Ml 2 Ml Vial) 4 mg IV NOW STA Stop: 05/11/24 20:09 Last Admin: 05/11/24 20:20 Dose: 4 mg Documented By: Oxycodone/Acetaminophen (Oxycodone/Acetaminophen 5mg/325mg Tab) 1 tab PO NOW STA Stop: 05/11/24 18:40 Last Admin: 05/11/24 18:46 Dose: 1 tab Documented By: KARI Imaging Data Radiologist's Impression: Knee X-Ray 05/11/24 18:39 Exam(s): XR RIGHT KNEE, 3 views EXAM: XR Right Knee, 3 Views CLINICAL HISTORY: Reason for exam: R knee pain, no trauma. TECHNIQUE: Three views of the right knee. COMPARISON: No relevant prior studies available. FINDINGS: Bones/joints: Severe tricompartmental osteoarthritis with complete obliteration of the medial lateral joint spaces. There is subtle medial subluxation of the distal femur with respect to the proximal tibia. No acute fracture or dislocation. Soft tissues: Unremarkable. IMPRESSION: Severe tricompartmental osteoarthritis without acute fracture or dislocation. Electronically signed by: Edward Lance MD 05/11/24 21:22 PM Discharge Plan Visit Data Chief Complaint: Knee Injury/Pain Stated Complaint: RT KNEE PAIN,LEG PAIN ED Provider: Getachew Mars Discharge Problem: Osteoarthritis Discharge Instructions Interventions: ED Discharge Assessment Last Done: 05/11/24 22:27 Forms Stand Alone Forms: [facility] [email or web address] Prescriptions Prescriptions: No Action levothyroxine 137 mcg Tablet 137 mcg PO DAILYBB atenolol 100 mg Tablet 100 mg PO QAM tramadol 50 mg Tablet 50 mg PO Q12 PRN (Reason: Pain) glimepiride 1 mg Tablet 1 mg PO QAM amlodipine 10 mg Tablet 10 mg PO QAM omeprazole 20 mg Capsule,Delayed Release(Dr/Ec) 20 mg PO QAM losartan 100 mg Tablet 100 mg PO QAM atorvastatin 40 mg Tablet 40 mg PO PM chlorthalidone 25 mg Tablet 25 mg PO QAM (DME) pen needle, diabetic 32 gauge x 5/16" needle See Rx Instructions .ROUTE .MEDSUPPLY Qty: 50 0RF Rx Instructions: daily with lantus (DME) pen needle, diabetic 32 gauge x 5/32" needle See Rx Instructions .ROUTE .MEDSUPPLY Qty: 100 1RF Rx Instructions: check sugars 3 times a day with meals (DME) OneTouch Verio test strips Strip See Rx Instructions .ROUTE .MEDSUPPLY Qty: 100 0RF Rx Instructions: Check blood sugars 3x's each day. (DME) lancets [OneTouch Delica Lancets] 33 gauge misc See Rx Instructions .ROUTE .MEDSUPPLY Qty: 100 0RF Rx Instructions: Check blood sugars 3x's each day. aspirin [Aspirin Low-Strength] 81 mg Tablet,Delayed Release (Dr/Ec) 81 mg PO QAM Referrals Referrals: Estrella Altamirano PA-C [Primary Care Provider] - Discharge Problem: Osteoarthritis Qualifiers: Osteoarthritis location: knee Osteoarthritis type: unspecified Laterality: r ight Qualified Code(s): M17.11 - Unilateral primary osteoarthritis, right knee
[2024-05-11] MEDS: oxyCODONE/ACETAMINOPHEN 5mg/325mg TAB PO STA (18:46)
[2024-05-11] MEDS: ONDANSETRON INJ 2 MG/ML 2 ML VIAL IV STA (20:20)
[2024-05-11] MEDS: MoRPHine SULFATE 4 MG/ML 1 ML CARP\\VIAL IV STA (20:20)
[2024-05-11 20:23] LABS: Basophils # (auto) 0.04 K/uL (0.00-0.20); Basophils % (auto) 0.3 %; Eosinophils # (auto) 0.34 K/uL (0.00-0.50); Eosinophils % (auto) 2.8 %; Hematocrit (blood only) 44.5 % (37.0-47.0); Hemoglobin 14.5 g/dl (12.0-16.0); Immature Granulocytes # (auto) 0.08 K/uL (0.01-0.20); Immature Granulocytes % (auto) 0.7 %; Lymphocytes # (auto) 1.97 K/uL (1.20-3.40); Lymphocytes % (auto) 16.2 %; Mean Corpuscular Hemoglobin 29.2 pg (25.0-34.0); Mean Corpuscular Hgb Conc 32.6 g/dL (32.0-36.0); Mean Corpuscular Volume 89.7 fL (80.0-100.0); Mean Platelet Volume 9.9 fL (9.4-12.4); Neutrophils # (auto) 8.65 K/uL (1.40-6.50); Platelet Count 269 K/uL (130-400); RDW Coefficient of Variation 14.1 % (11.5-14.5); RDW Standard Deviation 45.8 fL (36.4-46.3); Red Blood Count 4.96 M/uL (4.20-5.40); White Blood Count 12.18 K/ul (4.8-10.8)
[2024-05-11 20:40] LABS: Albumin Globulin Ratio 1.4 (0.9-2); Albumin Level 3.9 gm/dl (3.4-5.0); BUN Creatinine Ratio 18.9 (10-20); Bilirubin,Total 0.6 mg/dl (0.2-1.0); Calcium 9.7 mg/dl (8.6-10.3); Creatinine Clr Calc Pharmacy 35.4 ml/min; Globulin 2.7 gm/dl (2.5-4.0); Potassium 4.2 mmol/L (3.5-5.1); Total Protein 6.6 gm/dl (6.0-8.3)
--- NOTE | 2024-05-11 21:22 | XRay Report ---
Exam(s): XR RIGHT KNEE, 3 views EXAM: XR Right Knee, 3 Views CLINICAL HISTORY: Reason for exam: R knee pain, no trauma. TECHNIQUE: Three views of the right knee. COMPARISON: No relevant prior studies available. FINDINGS: Bones/joints: Severe tricompartmental osteoarthritis with complete obliteration of the medial lateral joint spaces. There is subtle medial subluxation of the distal femur with respect to the proximal tibia. No acute fracture or dislocation. Soft tissues: Unremarkable. IMPRESSION: Severe tricompartmental osteoarthritis without acute fracture or dislocation. Electronically signed by: Edward Lance MD 05/11/24 21:22 PM
--- NOTE | 2024-05-11 22:04 | History & Physical Report ---
Date of Service May 11, 2024 Assessment & Plan (1) Right knee pain: Plan: 83yo female with longstanding history of osteoarthritis, DM, COPD, GERD, HTN and Obesity presenting from home with acute on chronic right knee pain, ambulatory dysfunction. No trauma reported. Patient is afebrile, HD stable. Does have a leukocytosis with WBC=12.18 with neutrophil predominance. Patient denies fever/chills. No history of gout. -Admit to medical -Pain control with Tylenol, Voltaren and Tramadol PRN -CT of the right knee ordered - results are pending. Consider Ortho consult if needed pending results of CT -PT/OT evaluation -Maintain fall precautions (2) Diabetes: Plan: Overall well controlled. Last [id number] on 03/28/23 -Repeat AIC with AM labs -Hold home Glipizide -ISS, goal blood sugar 110 - 160 Plan Chronic Medical Conditions: Hypertension - patient with elevated blood pressure, presently 169/83 -Pain control -Continue Amlodipine -Continue Atenolol -Continue Chlorthalidone -Continue Cozaar Hyperlipidemia - chronic, stable -Continue Atorvastatin GERD - chronic -Protonix while inpatient Hypothyroidism - chronic, stable. Last TSH 03/28/23 = 4.316 -Continue Synthroid F/E/N - Saline lock. Electrolytes WNL. CC diet Ppx - Low risk for DVT, SCDs if tolerated Code - Full Dispo - Admit to medical, continued workup of acute on chronic right knee pain History of Present Illness Chief Complaint: right knee pain, ambulatory dysfunction Primary Care Provider: Estrella Adarsh Regalado is an 83yo female with history of DM, COPD, GERD, HTN, Hypothyroidism and morbid obesity with BMI of 45.2 presenting with acute on chronic right knee pain. Patient reports longstanding history of severe osteoarthritis in her right knee. She has tried conservative management, Tylenol, topicals in the past with minimal relief. Over the last week she has had acute worsening of her right knee pain. Over the last 2 days she has not been able to walk due to pain in the right knee. She denies trauma, no falls. Did not twist her leg or step funny. No edema, warmth or redness of the knee. No fever, chills. No other joints are troubling her at this time. In the ER patient is afebrile, hypertensive otherwise stable. She did have some transient hypoxia after receiving Morphine requiring supplemental O2 and hypoxia again during my encounter with saturations in the low 80's with proper waveform. Supplemental O2 2L was placed. Patient does not use home O2. ER Course: Zofran 4mg IV Morphine 4mg IV Oxycodone/Acetaminophen 1 tablet Allergies Allergy/AdvReac Type Severity Reaction Status Date / Time prednisone Allergy Difficulty Verified 05/11/24 20:18 Breathing ibuprofen AdvReac Unknown Unverified 09/16/20 10:46 Home Medications Medication Instructions Recorded Confirmed Type amlodipine 10 mg tablet 10 mg PO QAM 09/16/20 05/11/24 History atenolol 100 mg tablet 100 mg PO QAM 09/16/20 05/11/24 History atorvastatin 40 mg tablet 40 mg PO PM 09/16/20 05/11/24 History chlorthalidone 25 mg tablet 25 mg PO QAM 09/16/20 05/11/24 History glimepiride 1 mg tablet 1 mg PO QAM 09/16/20 05/11/24 History levothyroxine 137 mcg tablet 137 mcg PO DAILYBB 09/16/20 05/11/24 History losartan 100 mg tablet 100 mg PO QAM 09/16/20 05/11/24 History omeprazole 20 mg capsule,delayed 20 mg PO QAM 09/16/20 05/11/24 History release tramadol 50 mg tablet 50 mg PO Q12 PRN Pain 09/16/20 05/11/24 History pen needle, diabetic 32 gauge x #50 ea 09/21/20 05/11/24 Rx 5/16" pen needle, diabetic 32 gauge x #100 ea 09/21/20 05/11/24 Rx 5/32" blood sugar diagnostic (OneTouch #100 ea 09/22/20 05/11/24 Rx Verio test strips) lancets 33 gauge (OneTouch Delica #100 ea 09/22/20 05/11/24 Rx Lancets) aspirin 81 mg tablet,delayed 81 mg PO QAM 05/11/24 05/11/24 History release Past Med/Surg History Problem List Right knee pain Insulin dependent type 2 diabetes mellitus Diabetes mellitus type 2, uncontrolled Breast mass (Acute) Encounter for pre-operative examination Acute renal failure (Acute) Hyperglycemia (Acute) Acute UTI (urinary tract infection) (Acute) Elevated LFTs (Acute) Choledocholithiasis (Acute) Osteoarthritis (Acute) COPD (chronic obstructive pulmonary disease) DVT prophylaxis UTI (urinary tract infection) Hyperosmolar hyperglycemic state (HHS) GERD (gastroesophageal reflux disease) Diabetes Hypothyroidism Hypertension Family History Brother Cancer Other Diabetes Social History Smoking Status: Never smoker Do You Dip or Chew Tobacco: No; Hx Alcohol Use: No Hx Substance Use: No Preferred Language: Portuguese Communication Ability: Effective Copper Tapper Required: No Beliefs That Will Affect Care: None Current Living Situation: Alone Feels Safe at Home: Yes Assistive Devices: Walker Review of Systems Review of Systems: All systems reviewed & are unremarkable except as noted in HPI & below Physical Exam Physical Exam: General: patient resting comfortably, NAD, non-toxic in appearance, AA&O x 4 Skin: warm, dry, intact, no rashes or lesions HEENT: NC/AT, PERRL, EOMI, anicteric sclera, conjunctiva without injection, external ear normal to inspection and nontender, nares patent, moist mucus membranes, dentition intact, no oropharyngeal lesions, neck supple, trachea midline, no LAD, no thyromegaly, no JVD Heart: +S1/S2, regular, no m/r/g Lungs: equal air entry bilaterally, no rales/rhonchi/wheezes Abd: +BS, soft, NT/ND, no masses/organomegaly/ascites Ext: warm, 2+ pulses in UE/LE bilaterally, no clubbing/cyanosis, chronic lymphedema changes of bilateral LE with some skin thickening. Tenderness with palpation of the right knee, slightly warm to touch. No appreciable edema or fluid collection on exam although limited due to body habitus Neuro: nonfocal, patient AA&O x 4, speech intact, no facial droop, moving all extremities on command with equal strength 5/5 Results & Data Results & Data Vital Signs (Past 12 Hours) Vital Signs Temp Pulse Pulse Resp BP BP Pulse Ox 05/11/24 21:00 68 16 98 05/11/24 19:33 96 05/11/24 19:06 75 18 169/83 H 95 05/11/24 17:49 67 18 186/77 H 98 05/11/24 16:36 36.9 C 65 14 170/73 H 94 O2 Del Method O2 Flow Rate 05/11/24 21:00 Nasal Cannula 2 05/11/24 19:33 Room Air 05/11/24 19:06 Room Air 05/11/24 17:49 Room Air 05/11/24 16:36 Room Air Laboratory Results Laboratory Results WBC 12.18 K/ul (4.8-10.8) H 05/11/24 20:04 RBC 4.96 M/uL (4.20-5.40) 05/11/24 20:04 Hgb 14.5 g/dl (12.0-16.0) 05/11/24 20:04 Hct 44.5 % (37.0-47.0) 05/11/24 20:04 MCV 89.7 fL (80.0-100.0) 05/11/24 20:04 MCH 29.2 pg (25.0-34.0) 05/11/24 20:04 MCHC 32.6 g/dL (32.0-36.0) 05/11/24 20:04 RDW Std Deviation 45.8 fL (36.4-46.3) 05/11/24 20:04 RDW Coeff of Roberto 14.1 % (11.5-14.5) 05/11/24 20:04 Plt Count 269 K/uL (130-400) 05/11/24 20:04 MPV 9.9 fL (9.4-12.4) 05/11/24 20:04 Immature Gran % (Auto) 0.7 % 05/11/24 20:04 Neut % (Auto) 71.0 % 05/11/24 20:04 Lymph % (Auto) 16.2 % 05/11/24 20:04 [place] % (Auto) 9.0 % 05/11/24 20:04 Eos % (Auto) 2.8 % 05/11/24 20:04 Baso % (Auto) 0.3 % 05/11/24 20:04 Neut # (Auto) 8.65 K/uL (1.40-6.50) H 05/11/24 20:04 Lymph # (Auto) 1.97 K/uL (1.20-3.40) 05/11/24 20:04 [place] # (Auto) 1.10 K/uL (0.11-0.59) H 05/11/24 20:04 Eos # (Auto) 0.34 K/uL (0.00-0.50) 05/11/24 20:04 Baso # (Auto) 0.04 K/uL (0.00-0.20) 05/11/24 20:04 Immature Gran # (Auto) 0.08 K/uL (0.01-0.20) 05/11/24 20:04 Sodium 139 mmol/L (136-145) 05/11/24 20:04 Potassium 4.2 mmol/L (3.5-5.1) 05/11/24 20:04 Chloride 102 mmol/L (98-107) 05/11/24 20:04 Carbon Dioxide 29 mmol/L (21-32) 05/11/24 20:04 Anion Gap 8 (3-11) 05/11/24 20:04 BUN 28 mg/dl (6-23) H 05/11/24 20:04 Creatinine 1.48 mg/dl (0.6-1.2) H 05/11/24 20:04 Est Cr Clr Drug Dosing 35.4 ml/min 05/11/24 20:04 eGFR 34.92 05/11/24 20:04 BUN/Creatinine Ratio 18.9 (10-20) 05/11/24 20:04 Glucose 125 mg/dl (70-99(Fasting)) H 05/11/24 20:04 Calcium 9.7 mg/dl (8.6-10.3) 05/11/24 20:04 Total Bilirubin 0.6 mg/dl (0.2-1.0) 05/11/24 20:04 AST 23 U/L (13-39) 05/11/24 20:04 ALT 16 U/L (7-52) 05/11/24 20:04 Alkaline Phosphatase 157 U/L (34-104) H 05/11/24 20:04 Total Protein 6.6 gm/dl (6.0-8.3) 05/11/24 20:04 Albumin 3.9 gm/dl (3.4-5.0) 05/11/24 20:04 Globulin 2.7 gm/dl (2.5-4.0) 05/11/24 20:04 Albumin/Globulin Ratio 1.4 (0.9-2) 05/11/24 20:04 Impressions Knee X-Ray 05/11/24 18:39 Exam(s): XR RIGHT KNEE, 3 views EXAM: XR Right Knee, 3 Views CLINICAL HISTORY: Reason for exam: R knee pain, no trauma. TECHNIQUE: Three views of the right knee. COMPARISON: No relevant prior studies available. FINDINGS: Bones/joints: Severe tricompartmental osteoarthritis with complete obliteration of the medial lateral joint spaces. There is subtle medial subluxation of the distal femur with respect to the proximal tibia. No acute fracture or dislocation. Soft tissues: Unremarkable. IMPRESSION: Severe tricompartmental osteoarthritis without acute fracture or dislocation. Electronically signed by: Edward Lance MD 05/11/24 21:[address] of the knee performed - read is PENDING PG Care Time/CCT Total # of Minutes Spent Total Time Spent with Patient: Total time spent is greater than 50% in coordination of care (as documented) at patient's floor/unit and/or counseling patient: Coding Level of Care Code 38420 INT INP/OBS CARE 2/55MIN Diagnoses Right knee pain M25.561 Diabetes E11.9 Diabetes mellitus type: type 2 Diabetes mellitus intermediate teacher insulin use: without fci use Diabetes mellitus complication status: with kidney complications Chronic kidney disease stage: unspecified stage (2) Diabetes Diabetes mellitus type: type 2 Diabetes mellitus fci insulin use: without fci use Diabetes mellitus complication status: with kidney complications Chronic kidney disease stage: unspecified stage
[2024-05-11 22:17] LABS: Appearance Urine Clear (Clear); Bacteria Urine Automated None Seen (None Seen); Bilirubin Urine Negative (Negative); Blood Urine Negative (Negative); Cast Urine Automated 0-2 /lpf (0-2); Color Urine Yellow; Epithelial Cell Urine Auto 0-2 /hpf (0-2); Glucose Urine UA Negative (Negative); Ketones Urine Negative (Negative); Leukocyte Esterase Urine Negative (Negative); Nitrite Urine Negative (Negative); Protein Urine 2+ (Negative); RBC Urine Automated 0-2 /hpf (0-2); Specific Gravity Urine 1.009 (1.000-1.030); Urobilinogen Urine Negative (Negative); WBC Urine Automated 0-5 /hpf (0-5)
--- NOTE | 2024-05-11 22:36 | CT Scan Report ---
Exam(s): CT RIGHT KNEE Without Contrast EXAM: CT Right Lower Extremity Without Intravenous Contrast, Knee CLINICAL HISTORY: Reason for exam: Knee pain, eval for fracture. TECHNIQUE: Axial computed tomography images of the right knee without intravenous contrast. CTDI is 32.7 mGy and DLP is 582.58 mGy-cm. Automated exposure control was utilized for the study. A dose lowering technique was utilized adhering to the principles of ALARA. COMPARISON: No relevant prior studies available. FINDINGS: Bones/joints: Obliquely oriented nondisplaced fracture involving the medial aspect of the proximal tibial metaphysis best appreciated on the coronal images. This does not extend into the joint space. Severe tricompartmental osteoarthritis with complete obliteration of the medial lateral compartment joint spaces large productive osteophytes, patellofemoral compartment degenerative changes and moderate sized joint effusion. No dislocation. Soft tissues: Unremarkable. IMPRESSION: Obliquely oriented nondisplaced fracture involving the proximal medial tibial metaphysis Electronically signed by: Edward Lanec MD 05/11/24 22:35 PM
[2024-05-11] MEDS ORDERED: CARBOHYDRATES FOR HYPOGLYCEMIA PO PRN (22:44)
[2024-05-11] MEDS ORDERED: GLUCAGON FOR INJ 1 MG VIAL SQ PRN (22:44)
[2024-05-11] MEDS ORDERED: ONDANSETRON INJ 2 MG/ML 2 ML VIAL IV PRN (22:44)
[2024-05-11] MEDS ORDERED: GLUCOSE 40% GEL 15 GM TUBE PO PRN (22:44)
[2024-05-11] MEDS ORDERED: DEXTROSE 50% 50 ML SYRINGE IV PRN (22:44)
[2024-05-11] MEDS ORDERED: GLUCOSE 10 TAB/TUBE PO PRN (22:44)
[2024-05-12] MEDS: DICLOFENAC SOD 1% GEL 100 GM TUBE EXT SCH (00:20)
[2024-05-12] MEDS: LEVOTHYROXINE SODIUM 137 MCG TABLET PO SCH (05:05)
[2024-05-12] MEDS: traMADol HCL 50 MG TABLET PO PRN (06:11)
[2024-05-12 06:45] LABS: Hematocrit (blood only) 41.4 % (37.0-47.0); Hemoglobin 13.3 g/dl (12.0-16.0); Mean Corpuscular Hemoglobin 29.2 pg (25.0-34.0); Mean Corpuscular Hgb Conc 32.1 g/dL (32.0-36.0); Mean Platelet Volume 9.9 fL (9.4-12.4); Platelet Count 228 K/uL (130-400); RDW Coefficient of Variation 14.1 % (11.5-14.5); RDW Standard Deviation 47.2 fL (36.4-46.3); Red Blood Count 4.55 M/uL (4.20-5.40); White Blood Count 8.83 K/ul (4.8-10.8)
[2024-05-12 07:03] LABS: BUN Creatinine Ratio 18.2 (10-20); Calcium 9.1 mg/dl (8.6-10.3); Creatinine Clr Calc Pharmacy 37.9 ml/min
[2024-05-12 07:16] LABS: Estimated Average Glucose 143 mg/dl; Hemoglobin A1C 6.6 % (4.5-5.6)
[2024-05-12] MEDS: LOSARTAN POTASSIUM 50 MG TAB PO SCH (08:11)
[2024-05-12] MEDS: amLODIPine BESYLATE 5 MG TAB PO SCH (08:11)
[2024-05-12] MEDS: ATENOLOL 50 MG TABLET PO SCH (08:11)
[2024-05-12] MEDS: CHLORTHALIDONE 25 MG TAB PO SCH (08:11)
[2024-05-12] MEDS: PANTOprazole 40 MG TAB PO SCH (08:11)
[2024-05-12] MEDS: INSULIN ASPART PER UNIT CHARGE SC SCH (08:12)
[2024-05-12] MEDS: ASPIRIN 81 MG ECTAB PO SCH (08:12)
[2024-05-12] MEDS: ACETAMINOPHEN 500 MG TAB PO SCH (08:12)
--- NOTE | 2024-05-12 08:29 | Orthopedic Consultation ---
Date of Service May 12, 2024 Assessment & Plan (1) Right medial tibial plateau fracture: 83-year-old female with advanced severe right knee DJD with marked deformity along with underlying lymphedema and healing wounds on her right leg. She is now got a proximal tibial metaphyseal fracture likely related to her severe arthritic deformity. There is been no trauma. The fracture is nondisplaced. Plan: This presents a very difficult problem in this patient with severe advanced arthritis and limited ambulator start out with with this a fracture. The fracture is likely related to her severe arthritis and severe deformity. It is nondisplaced. Does not need surgical treatment but it is can be difficult for her to get around. She is going need to keep her weight off this for at least 6 weeks. Recommendations would be a knee immobilizer for 6 weeks. She may need a custom knee immobilizer. The patient is really not a surgical candidate from the knee replacement standpoint due to her chronic lymphedema, multiple medical comorbidities as well as open scabs on her right leg. In light of this she will need this knee immobilizer. Once again, she may benefit from a orthopedic orthotics consult for a more custom knee immobilizer due to her large soft tissue envelope. She needs to be nonweightbearing for the next 6 weeks. She will likely need some type of placement. She can follow-up locally if needed or were happy to follow-up. Any orthopedic questions can be direct [place] [phone]. (2) Right knee DJD: History of Present Illness Reason for Consultation: . Right proximal tibia fracture. Requesting Physician: . Attending Physician: Ciara Perez DO . Patient is a 83-year-old female with multiple medical comorbidities and fairly minimal ambulator with use of walker who presents with right knee and leg pain and ambulatory dysfunction. She got a long history of right knee DJD and arthritis. She has been through extensive conservative treatment in the past by Dr. Sonja Osorio is over the [place] area. The shots do not help her at all anymore. She walks with the use of her walker and done that for the past 3 or 4 years. She has had chronic knee pain. She is able to live and manage things on her own. There is been no trauma but over the past week she has had increasing knee pain. She is now admitted for ambulatory dysfunction and knee pain. Allergies Allergy/AdvReac Type Severity Reaction Status Date / Time prednisone Allergy Difficulty Verified 05/11/24 20:18 Breathing ibuprofen AdvReac Unknown Unverified 09/16/20 10:46 Home Medications Medication Instructions Recorded Confirmed Type amlodipine 10 mg tablet 10 mg PO QAM 09/16/20 05/11/24 History atenolol 100 mg tablet 100 mg PO QAM 09/16/20 05/11/24 History atorvastatin 40 mg tablet 40 mg PO PM 09/16/20 05/11/24 History chlorthalidone 25 mg tablet 25 mg PO QAM 09/16/20 05/11/24 History glimepiride 1 mg tablet 1 mg PO QAM 09/16/20 05/11/24 History levothyroxine 137 mcg tablet 137 mcg PO DAILYBB 09/16/20 05/11/24 History losartan 100 mg tablet 100 mg PO QAM 09/16/20 05/11/24 History omeprazole 20 mg capsule,delayed 20 mg PO QAM 09/16/20 05/11/24 History release tramadol 50 mg tablet 50 mg PO Q12 PRN Pain 09/16/20 05/11/24 History pen needle, diabetic 32 gauge x #50 ea 09/21/20 05/11/24 Rx 5/16" pen needle, diabetic 32 gauge x #100 ea 09/21/20 05/11/24 Rx 5/32" blood sugar diagnostic (OneTouch #100 ea 09/22/20 05/11/24 Rx Verio test strips) lancets 33 gauge (OneTouch Delica #100 ea 09/22/20 05/11/24 Rx Lancets) aspirin 81 mg tablet,delayed 81 mg PO QAM 05/11/24 05/11/24 History release Past Med/Surg History Problem List (Updated 05/12/24 @ 08:27 by Jigar Perez MD) Right knee DJD Right medial tibial plateau fracture Right knee pain Insulin dependent type 2 diabetes mellitus Diabetes mellitus type 2, uncontrolled Breast mass (Acute) Encounter for pre-operative examination Acute renal failure (Acute) Hyperglycemia (Acute) Acute UTI (urinary tract infection) (Acute) Elevated LFTs (Acute) Choledocholithiasis (Acute) Osteoarthritis (Acute) COPD (chronic obstructive pulmonary disease) DVT prophylaxis UTI (urinary tract infection) Hyperosmolar hyperglycemic state (HHS) GERD (gastroesophageal reflux disease) Diabetes Hypothyroidism Hypertension Family History Brother Cancer Other Diabetes Social History Smoking Status: Never smoker Do You Dip or Chew Tobacco: No; Hx Alcohol Use: No Hx Substance Use: No Preferred Language: Albanian Communication Ability: Effective Tools And Parts Attendant Required: No Beliefs That Will Affect Care: None Current Living Situation: Alone Feels Safe at Home: Yes Assistive Devices: Walker Review of Systems All systems reviewed & are unremarkable except as noted in HPI & below. Physical Exam . Physical examination was a pleasant elderly female. She is sitting up in bed looks completely comfortable. She has a knee immobilizer in place. With the knee immobilizer off she is got a very large soft tissue envelope with a markedly varus aligned knee. She is got some healing scabs on her right leg down below. There is no signs of infection. She is tender over her proximal tibial metaphyseal region. She has difficulty doing a straight leg raise. Is got a very stiff knee with about a 20 degree flexion contracture and only bends about 70 degrees. She is otherwise neurologically intact. No particular pain with hip motion. Results & Data Results & Data Laboratory Results . Diagnostic Findings . X-rays of the knee were reviewed. Shows as in severe advanced right knee tricompartment DJD with marked varus deformity to her knee and bony destruction over the medial tibial plateau. There is a slight cortical break in the metaphysis more distally in the metaphyseal region. CT scan was reviewed. It does confirm this small crack in the proximal tibial metaphyseal region. It is nondisplaced. This likely goes through some of the cysts in her knee from her arthritis. She got severe tricompartment DJD. PG Care Time/CCT Total # of Minutes Spent Total Time Spent with Patient: Total time spent is greater than 50% in coordination of care (as documented) at patient's floor/unit and/or counseling patient: Coding Level of Care Code 42490 IN/OBS CONSULT LVL 3,45M Diagnoses Right medial tibial plateau fracture S82.131A Right knee DJD M17.11
--- NOTE | 2024-05-12 12:47 | Hospitalist Progress Note ---
Date of Service May 12, 2024 Assessment & Plan (1) Right knee pain: Plan: 83yo female with longstanding history of osteoarthritis, DM, COPD, GERD, HTN and Obesity presenting from home with acute on chronic right knee pain, ambulatory dysfunction. No trauma reported. Patient is afebrile, HD stable. Does have a leukocytosis with WBC=12.18 with neutrophil predominance. Patient denies fever/chills. No history of gout. CT of the right knee showed right tibial fracture. Orthopedics involved. Does not recommend surgery but recommended not weightbearing for 6 weeks along with knee immobilizer PT/OT consulted Patient may likely need placement. -Pain control with Tylenol, Voltaren and Tramadol PRN -Maintain fall precautions (2) Diabetes: Plan: Overall well controlled. Last [id number] on 03/28/23 -A1c 6.6 on 05/12 -Hold home Glipizide -ISS, goal blood sugar 110 - 160 Plan Chronic Medical Conditions: Hypertension - -Pain control -Continue Amlodipine -Continue Atenolol -Continue Chlorthalidone -Continue Cozaar Hyperlipidemia - chronic, stable -Continue Atorvastatin GERD - chronic -Protonix while inpatient Hypothyroidism - chronic, stable. Last TSH 03/28/23 = 4.316 -Continue Synthroid Morbid obesity with BMI of 45 F/E/N - Saline lock. Electrolytes WNL. CC diet DVT Ppx -started Lovenox Code - Full Admission and Anticipated Discharge Date Admission Date: May 11, 2024 Subjective Patient was seen and examined at 10:35 AM. She does not complain of significant pain at this time. No chest pain or shortness of breath. She was seen in consultation by orthopedics and was told that she will not be undergoing surgery Review of Systems Review of Systems: All systems reviewed & are unremarkable except as noted in Subjective Physical Exam Physical Exam: General: Awake, conversant. Morbidly obese Heart: S1, S2/regular rate and rhythm, no murmur rubs or gallops Lungs: Clear to auscultation bilaterally. Normal effort Abdomen: Soft/nontender/nondistended. No hepatosplenomegaly Extremities: No clubbing/cyanosis. 1+ pitting bilateral edema Behavior: Appropriate, cooperative Results & Data Results & Data Vital Signs (Past 12 Hours) Vital Signs Temp Pulse Resp BP Pulse Ox O2 Del Method O2 Flow Rate 11/16/24 08:15 Nasal Cannula 2 05/12/24 07:33 36.4 C L 72 18 167/76 H 97 Nasal Cannula 2 Laboratory Results Abnormal lab results 05/11/24 05/11/24 05/11/24 Range/Units 20:04 21:09 23:56 WBC 12.18 H (4.8-10.8) K/ul RDW Std Deviation (36.4-46.3) fL Neut # (Auto) 8.65 H (1.40-6.50) K/uL [place] # (Auto) 1.10 H (0.11-0.59) K/uL BUN 28 H (6-23) mg/dl Creatinine 1.48 H (0.6-1.2) mg/dl Glucose 125 H (70-99(Fasting)) mg/dl POC Glucose 104 H (70-99) mg/dl Hemoglobin A1c (4.5-5.6) % Alkaline Phosphatase 157 H (34-104) U/L Urine Protein 2+ H (Negative) 05/12/24 05/12/24 05/12/24 Range/Units 06:19 07:32 11:55 WBC (4.8-10.8) K/ul RDW Std Deviation 47.2 H (36.4-46.3) fL Neut # (Auto) (1.40-6.50) K/uL [place] # (Auto) (0.11-0.59) K/uL BUN 25 H (6-23) mg/dl Creatinine 1.37 H (0.6-1.2) mg/dl Glucose 120 H (70-99(Fasting)) mg/dl POC Glucose 116 H 156 H (70-99) mg/dl Hemoglobin A1c 6.6 H (4.5-5.6) % Alkaline Phosphatase (34-104) U/L Urine Protein (Negative) PG Care Time/CCT Total # of Minutes Spent Total Time Spent with Patient: Total time spent is greater than 50% in coordination of care (as documented) at patient's floor/unit and/or counseling patient: Coding Level of Care Code 51630 SUB INP/OBS CARE 2/35MIN Diagnoses Right knee pain M25.561 Diabetes E11.9 Diabetes mellitus type: type 2 Diabetes mellitus skilled nursing insulin use: without skilled nursing use Diabetes mellitus complication status: with kidney complications Chronic kidney disease stage: unspecified stage (2) Diabetes Diabetes mellitus type: type 2 Diabetes mellitus skilled nursing insulin use: without skilled nursing use Diabetes mellitus complication status: with kidney complications Chronic kidney disease stage: unspecified stage
[2024-05-12] MEDS: ATORVASTATIN 40 MG TAB PO SCH (20:36)
[2024-05-13] MEDS: ENOXAPARIN INJ 40 MG/0.4 ML SYR SQ SCH (07:46)
[2024-05-13] MEDS: hydrALAZINE 10 MG TAB PO SCH (09:29)
--- NOTE | 2024-05-13 11:08 | Hospitalist Progress Note ---
Date of Service May 13, 2024 Assessment & Plan (1) Right knee pain: Plan: 83yo female with longstanding history of osteoarthritis, DM, COPD, GERD, HTN and Obesity presenting from home with acute on chronic right knee pain, ambulatory dysfunction. No trauma reported. Patient is afebrile, HD stable. Does have a leukocytosis with WBC=12.18 with neutrophil predominance. Patient denies fever/chills. No history of gout. CT of the right knee showed right tibial fracture. Orthopedics involved. Does not recommend surgery but recommended not weightbearing for 6 weeks along with knee immobilizer PT/OT consulted Patient may likely need placement. -Pain control with Tylenol, Voltaren and Tramadol PRN -Maintain fall precautions (2) Diabetes: Plan: Overall well controlled. Last [id number] on 03/28/23 -A1c 6.6 on 05/12 -Hold home Glipizide -ISS, goal blood sugar 110 - 160 Plan Chronic Medical Conditions: Hypertension - -Pain control -Continue Amlodipine -Continue Atenolol -Continue Chlorthalidone -Continue Cozaar Blood pressure still elevated Added hydralazine 25 mg p.o. 3 times daily to her regimen Hyperlipidemia - chronic, stable -Continue Atorvastatin GERD - chronic -Protonix while inpatient Hypothyroidism - chronic, stable. Last TSH 03/28/23 = 4.316 -Continue Synthroid Morbid obesity with BMI of 45 F/E/N - Saline lock. Electrolytes WNL. CC diet DVT Ppx -started Lovenox Code - Full Admission and Anticipated Discharge Date Admission Date: May 11, 2024 Subjective Patient was seen and examined at 8:45 AM. She says that when she moves her knee, it hurts. But when she is laying in bed she is not in pain. Review of Systems Review of Systems: All systems reviewed & are unremarkable except as noted in Subjective Physical Exam Physical Exam: General: Awake, conversant. Morbidly obese Heart: S1, S2/regular rate and rhythm, no murmur rubs or gallops Lungs: Clear to auscultation bilaterally. Normal effort Abdomen: Soft/nontender/nondistended. No hepatosplenomegaly Extremities: No clubbing/cyanosis. 1+ pitting bilateral edema Behavior: Appropriate, cooperative Results & Data Results & Data Vital Signs (Past 12 Hours) Vital Signs Temp Pulse Resp BP Pulse Ox O2 Del Method O2 Flow Rate 05/13/24 07:33 Room Air, Nasal Cannula 2 05/13/24 07:06 36.4 C 71 18 172/67 H 97 Nasal Cannula 2 PG Care Time/CCT Total # of Minutes Spent Total Time Spent with Patient: Total time spent is greater than 50% in coordination of care (as documented) at patient's floor/unit and/or counseling patient: Coding Level of Care Code 92309 SUB INP/OBS CARE 2/35MIN Diagnoses Right knee pain M25.561 Diabetes E11.9 Diabetes mellitus type: type 2 Diabetes mellitus termite treater helper insulin use: without alf use Diabetes mellitus complication status: with kidney complications Chronic kidney disease stage: unspecified stage (2) Diabetes Diabetes mellitus type: type 2 Diabetes mellitus termite treater helper insulin use: without termite treater helper use Diabetes mellitus complication status: with kidney complications Chronic kidney disease stage: unspecified stage
[2024-05-13] MEDS: POLYETHYLENE (MIRALAX) 17 GM PACK PO SCH (13:44)
--- NOTE | 2024-05-14 15:30 | Hospitalist Progress Note ---
Date of Service May 14, 2024 Assessment & Plan (1) Right knee pain: Plan: 83yo female with longstanding history of osteoarthritis, DM, COPD, GERD, HTN and Obesity presenting from home with acute on chronic right knee pain, ambulatory dysfunction. No trauma reported. Patient is afebrile, HD stable. Does have a leukocytosis with WBC=12.18 with neutrophil predominance. Patient denies fever/chills. No history of gout. CT of the right knee showed right tibial fracture. Age-related osteoporosis with current pathologic fracture, R tibial plateau Orthopedics involved. Does not recommend surgery but recommended not weightbearing for 6 weeks along with knee immobilizer PT/OT recommends acute rehab -Pain control with Tylenol, Voltaren and Tramadol PRN -Maintain fall precautions (2) Diabetes: Plan: Overall well controlled. Last [id number] on 03/28/23 -A1c 6.6 on 05/12 -Hold home Glipizide -ISS, goal blood sugar 110 - 160 Plan Chronic Medical Conditions: Hypertension - -Pain control -Continue Amlodipine -Continue Atenolol -Continue Chlorthalidone -Continue Cozaar Blood pressure still elevated Added hydralazine 25 mg p.o. 3 times daily to her regimen Patient says that she feels like her hands have become puffy. Ordered a dose of Lasix 40 mg p.o. x 1 Hyperlipidemia - chronic, stable -Continue Atorvastatin GERD - chronic -Protonix while inpatient Hypothyroidism - chronic, stable. Last TSH 03/28/23 = 4.316 -Continue Synthroid Morbid obesity with BMI of 45 F/E/N - Saline lock. Electrolytes WNL. CC diet DVT Ppx -started Lovenox Code - Full Admission and Anticipated Discharge Date Admission Date: May 11, 2024 Subjective Patient was seen and examined at 9:50 AM. Physical Exam Physical Exam: General: Awake, conversant. Morbidly obese Heart: S1, S2/regular rate and rhythm, no murmur rubs or gallops Lungs: Clear to auscultation bilaterally. Normal effort Abdomen: Soft/nontender/nondistended. No hepatosplenomegaly Extremities: No clubbing/cyanosis. 1+ pitting bilateral edema Behavior: Appropriate, cooperative Results & Data Results & Data Vital Signs (Past 12 Hours) Vital Signs Temp Pulse Pulse Resp BP BP Pulse Ox 05/14/24 14:32 154/65 H 05/14/24 14:30 36.4 C L 65 16 176/69 H 92 05/14/24 09:31 05/14/24 07:49 36.6 C 60 62 17 151/52 H 96 O2 Del Method O2 Flow Rate 05/14/24 14:32 05/14/24 14:30 Room Air 05/14/24 09:31 Room Air 05/14/24 07:49 Nasal Cannula 2 PG Care Time/CCT Total # of Minutes Spent Total Time Spent with Patient: Total time spent is greater than 50% in coordination of care (as documented) at patient's floor/unit and/or counseling patient: Coding Level of Care Code 44317 SUB INP/OBS CARE 2/35MIN Diagnoses Right knee pain M25.561 Diabetes E11.9 Diabetes mellitus type: type 2 Diabetes mellitus long-term insulin use: without long-term use Diabetes mellitus complication status: with kidney complications Chronic kidney disease stage: unspecified stage (2) Diabetes Diabetes mellitus type: type 2 Diabetes mellitus ad terminal makeup operator insulin use: without ad terminal makeup operator use Diabetes mellitus complication status: with kidney complications Chronic kidney disease stage: unspecified stage
[2024-05-14] MEDS: FUROSEMIDE 40 MG TAB PO ONE (16:59)
[2024-05-15 06:55] LABS: BUN Creatinine Ratio 21.8 (10-20); Calcium 9.5 mg/dl (8.6-10.3); Creatinine Clr Calc Pharmacy 30.6 ml/min; Potassium 4.2 mmol/L (3.5-5.1)
[2024-05-15 14:17] VITALS: BP 156/71; PULSE 73; RESP 18; TEMP 98.1; O2SAT 98
--- NOTE | 2024-05-15 15:01 | Discharge Summary ---
Date of Service May 15, 2024 Admission HPI Per Admitting Provider Karina Regalado is an 83yo female with history of DM, COPD, GERD, HTN, Hypothyroidism and morbid obesity with BMI of 45.2 presenting with acute on chronic right knee pain. Patient reports longstanding history of severe osteoarthritis in her right knee. She has tried conservative management, Tylenol, topicals in the past with minimal relief. Over the last week she has had acute worsening of her right knee pain. Over the last 2 days she has not been able to walk due to pain in the right knee. She denies trauma, no falls. Did not twist her leg or step funny. No edema, warmth or redness of the knee. No fever, chills. No other joints are troubling her at this time. In the ER patient is afebrile, hypertensive otherwise stable. She did have some transient hypoxia after receiving Morphine requiring supplemental O2 and hypoxia again during my encounter with saturations in the low 80's with proper waveform. Supplemental O2 2L was placed. Patient does not use home O2. ER Course: Zofran 4mg IV Morphine 4mg IV Oxycodone/Acetaminophen 1 tablet Admission Exam Per Admitting Provider General: patient resting comfortably, NAD, non-toxic in appearance, AA&O x 4 Skin: warm, dry, intact, no rashes or lesions HEENT: NC/AT, PERRL, EOMI, anicteric sclera, conjunctiva without injection, external ear normal to inspection and nontender, nares patent, moist mucus membranes, dentition intact, no oropharyngeal lesions, neck supple, trachea midline, no LAD, no thyromegaly, no JVD Heart: +S1/S2, regular, no m/r/g Lungs: equal air entry bilaterally, no rales/rhonchi/wheezes Abd: +BS, soft, NT/ND, no masses/organomegaly/ascites Ext: warm, 2+ pulses in UE/LE bilaterally, no clubbing/cyanosis, chronic lymphedema changes of bilateral LE with some skin thickening. Tenderness with palpation of the right knee, slightly warm to touch. No appreciable edema or fluid collection on exam although limited due to body habitus Neuro: nonfocal, patient AA&O x 4, speech intact, no facial droop, moving all extremities on command with equal strength 5/5 Principal Diagnosis Right tibial fracture Ambulatory dysfunction Benign essential hypertension Morbid obesity Discharge Exam General: Awake, conversant. Morbidly obese Heart: S1, S2/regular rate and rhythm, no murmur rubs or gallops Lungs: Clear to auscultation bilaterally. Normal effort Abdomen: Soft/nontender/nondistended. No hepatosplenomegaly Extremities: No clubbing/cyanosis. 1+ pitting bilateral edema Behavior: Appropriate, cooperative Discharge Data Allergies Allergy/AdvReac Type Severity Reaction Status Date / Time prednisone Allergy Difficulty Verified 05/11/24 20:18 Breathing ibuprofen AdvReac Unknown Unverified 09/16/20 10:46 Consultations 05/11/24 21:46 ED Decision to Admit Stat 05/11/24 23:26 Consult Orthopedic Surgery Routine Ordered Studies 05/11/24 19:33 CT knee RT wo con Stat Hospital Course (1) Right knee pain: 83yo female with longstanding history of osteoarthritis, DM, COPD, GERD, HTN and Obesity presenting from home with acute on chronic right knee pain, ambulatory dysfunction. No trauma reported. Patient is afebrile, HD stable. Does have a leukocytosis with WBC=12.18 with neutrophil predominance. Patient denies fever/chills. No history of gout. CT of the right knee showed right tibial fracture. Age-related osteoporosis with current pathologic fracture, R tibial plateau Orthopedics involved. Does not recommend surgery but recommended not weightbearing for 6 weeks along with knee immobilizer PT/OT recommends acute rehab -Maintain fall precautions (2) Diabetes: Overall well controlled. Last [id number] on 03/28/23 -A1c 6.6 on 05/12 -Hold home Glipizide -ISS, goal blood sugar 110 - 160 Plan Chronic Medical Conditions: Hypertension - -Pain control -Continue Amlodipine -Continue Atenolol -Continue Chlorthalidone -Continue Cozaar Blood pressure still elevated Added hydralazine p.o. 3 times daily to her regimen Hyperlipidemia - chronic, stable -Continue Atorvastatin GERD - chronic -Protonix while inpatient Hypothyroidism - chronic, stable. Last TSH 03/28/23 = 4.316 -Continue Synthroid Morbid obesity with BMI of 45 Discharge to rehab today Total Time Total Time Spent Total Time Spent (In Minutes): 35 Discharge Plan Discharge Items Patient Disposition: Transfer Inpatient Rehab Fac Reason For Visit: RIGHT KNEE PAIN, AMBULATORY DYSFUNCTION Discharge Diagnosis: Right tibial fracture Ambulatory dysfunction Benign essential hypertension Morbid obesity Activity: As commented below Activity Comment: Per PT/OT recommendations Non-emergency contact: Primary Care Provider Call non-emergency contact if: you have any medication questions and your symptoms worsen Follow-up/Referrals: Jigar Perez MD [Physician] - Estrella Altamirano PA-C [Primary Care Provider] - Diet: Carb Consistent or DM2 and Heart Healthy Addtl Attending Provider Instructions: Advised to follow-up with PCP in 1 week Nonweightbearing on right knee for 6 weeks Advised to follow-up with orthopedics after 6 weeks Pending Studies at Discharge: No Stand-Alone Forms: My [facility] [employer] Skilled Items Patient informed of condition?: Yes DNR: No Discharge Level of Care: Acute rehab Communicable Disease: No Discharge Prognosis: Stable Lines: None Urinary Catheter: No Medications and DC Order Prescriptions: New hydralazine 10 mg Tablet 10 mg PO TID 30 Days Qty: 90 0RF Continued levothyroxine 137 mcg Tablet 137 mcg PO DAILYBB atenolol 100 mg Tablet 100 mg PO QAM tramadol 50 mg Tablet 50 mg PO Q12 PRN (Reason: Pain) glimepiride 1 mg Tablet 1 mg PO QAM amlodipine 10 mg Tablet 10 mg PO QAM omeprazole 20 mg Capsule,Delayed Release(Dr/Ec) 20 mg PO QAM losartan 100 mg Tablet 100 mg PO QAM atorvastatin 40 mg Tablet 40 mg PO PM chlorthalidone 25 mg Tablet 25 mg PO QAM (DME) pen needle, diabetic 32 gauge x 5/16" needle See Rx Instructions .ROUTE .MEDSUPPLY Qty: 50 0RF Rx Instructions: daily with lantus (DME) pen needle, diabetic 32 gauge x 5/32" needle See Rx Instructions .ROUTE .MEDSUPPLY Qty: 100 1RF Rx Instructions: check sugars 3 times a day with meals (DME) OneTouch Verio test strips Strip See Rx Instructions .ROUTE .MEDSUPPLY Qty: 100 0RF Rx Instructions: Check blood sugars 3x's each day. (DME) lancets [OneTouch Delica Lancets] 33 gauge misc See Rx Instructions .ROUTE .MEDSUPPLY Qty: 100 0RF Rx Instructions: Check blood sugars 3x's each day. aspirin 81 mg Tablet,Delayed Release (Dr/Ec) 81 mg PO QAM Discharge Orders: Discharge Order (Routine); Ordered 05/15/24 Ordered By: Zackery Gould/Other Patient Handouts: Managing Type 2 Diabetes Admission Data Admit Date/Time: 05/11/24 21:53 Attending Provider: Zackery Cheney Admit Provider: Ciara Perez Primary Care Provider: Estrella Altamirano Other Providers: Ciara Perez; Jigar Perez; IRB Approved Study,[facility]; [facility]
== END 2024-05-15 16:16 | DRG 543 ==
LOC: ED 16:15 → SUATTDRO 21:53 → 3N 21:53